=== PATIENT | male | born 1930 | race Caucasian/White ===

== ENCOUNTER 2020-02-12 12:12 | Inpatient (IN) | payer OTHER ==
[~2020-02-12] VITALS: Ht 167.7 cm; Wt 56.6 kg
--- NOTE | 2020-02-12 09:05 | NUR ---
Supervison Christo here to attempt to start IV so pt can receive ordered IVF. Attempts x2 per nursing unsuccessful prior to calling Capacity Planning Manager. Capacity Planning Manager successful on third attempt with #22 in left lower leg. NS at @80cc/hr started. Cont to monitor. Addendum: 02/12/20 at 2142 by DARYL HAYWOOD RN time should have been 2105
[2020-02-12] MEDS ORDERED: FLEET ENEMA ADULT 1 EA BTL PR PRN (12:30)
[2020-02-12] MEDS ORDERED: LOPERAMIDE 2 MG (IMODIUM) TABLET PO PRN (12:30)
[2020-02-12] MEDS ORDERED: CALCIUM CARBONATE 500 MG (TUMS) TAB.CHEW PO PRN (12:30)
[2020-02-12] MEDS ORDERED: ONDANSETRON 4 MG (ZOFRAN) ORAL DISSOLVE TAB PO PRN (12:30)
[2020-02-12] MEDS ORDERED: diphenhydrAMINE 25 MG TAB (BENADRYL) PO PRN (12:30)
[2020-02-12] MEDS ORDERED: BISACODYL 10 MG SUPP (DULCOLAX) PR PRN (12:30)
[2020-02-12] MEDS ORDERED: guaiFENesin/CODEINE (ROBITUSSIN AC) 10ML UDC PO PRN (12:30)
[2020-02-12] MEDS ORDERED: LACTULOSE SYRUP 10GM/15ML (ENULOSE) 30ML UDC PO PRN (12:30)
[2020-02-12] MEDS ORDERED: DOCUSATE SODIUM 100 MG (COLACE) CAP PO PRN (12:30)
[2020-02-12] MEDS ORDERED: CEPH-507 PO (13:01)
[2020-02-12] MEDS ORDERED: ASPI-1238 PO (13:01)
[2020-02-12] MEDS ORDERED: MELO7.5T46 PO (13:01)
[2020-02-12] MEDS ORDERED: ASCO100024 PO (13:01)
[2020-02-12] MEDS ORDERED: PROM25TA14 PO (13:01)
[2020-02-12] MEDS ORDERED: OXYC1TAB87 PO (13:01)
--- NOTE | 2020-02-12 13:03 | NUR ---
MED REC HAS BEEN ENTERED USING THE [facility] DISCHARGE ORDERS- AFTER MEDICATIONS ARE CONTINUED I WILL SPEAK WITH THE PT AND MAKE CHANGED TO THE NOTE/MED REC IF NEEDED Addendum: 02/18/20 at 1130 by SHY FITZGERALD [facility] [place] I SPOKE WITH THE PT ON 02-17-2020 AND AGAIN ON 02-18-2020 WELL CALL THE [facility] PHARM[facility]Y TO COMPLETE THE MED REC PT DENIES TAKING ANY MEDICATION PRESCRIPTION OR OTC- I DID CHECK WITH THE NM IN [place] AND THEY FILLED AMLODIPINE 5MG ON 01-01-2020 #90/90DS. I WENT BACK AND SPOKE WITH THE PT AGAIN TO GET CLARIFICATION AND HE STATES NO HE ISNT TAKING IT ANYMORE. FOR THIS REASON I HAVE SET HIS PROFILE TO NO PRESCRIPTION
--- NOTE | 2020-02-12 15:00 | NUR ---
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 ITALO LIN introduced to surroundings, call light, bed controls, phone, TV, temperature control, lights, meal times, smoking policy, visitor policy, side rail policy, bathrooms and showers. Patient Rights given to patient in the handbook.ITALO LIN verbalizes understanding that [facility] is not responsible for the loss or damage to any personal effects or valuables that are kept in the patients possession during their hospitalization. The following Patient Care Plans were discussed with the patient: Discharge Planning, risk for falls, impaired mobility, parkinsonism. ITALO LIN verbalizes understanding of Interdisciplinary Patient Education. Patient and/or family were informed about the Rapid Response Team and its purpose. Patient received Patient Rights Booklet, which includes Privacy Act Statement and Data Collection Information Summary.
--- NOTE | 2020-02-12 15:27 | Physical Therapy Evaluation ---
PT Evaluation-General Medical Diagnosis Admission Date February 12, 2020 Medical Diagnosis: Parkinson's/right reverse total shoulder Onset Date: Feb 10, 2020 Therapy Diagnosis Therapy Diagnosis: impaired moblity/weakness Precautions Precautions/Isolations: Fall Prevention, Standard Precautions Referral Physician: Marvin Reason for Referral: Evaluation/Treatment Medical History Pertinent Medical History: CABG, CAD, Neuropathy, Parkinson's, Smoking Current History s/p right reverse total shoulder NWB Reviewed History: Yes Social History Home: Single Level Current Living Status: Alone Entry Into Home: Ramp Prior Prior Level of Function SCALE: Activities may be completed with or without assistive devices. 2-Yxdtpwqppf-cbnrhep completes the activity by him/herself with no assistance from a helper. 5-Set-up or Clean-up Assistance-helper sets up or cleans up; patient completes activity. Helm assists only prior to or following the activity. 4-Supervision or Touching Assistance-helper provides verbal cues and/or touching/steadying and/or contact guard assistance as patient completes activity. Assistance may be provided throughout the activity or intermittently. 3-Partial/Moderate Assistance-helper does LESS THAN HALF the effort. Helm lifts, holds or supports trunk or limbs, but provides less than half the effort. 2-Substantial/Maximal Assistance-helper does MORE THAN HALF the effort. Helm lifts or holds trunk or limbs and provides more than half the effort. 0-Utakxkcts-ygyctg does ALL the effort. Patient does none of the effort to complete the activity. Or, the assistance of 2 or more helpers is required for the patient to complete the activity. If activity was not attempted, code reason: 7-Patient Refused. 9-Not Applicable-not attempted and the patient did not perform the activity before the current illness, exacerbation or injury. 10-Not Attempted due to Environmental Limitations-(lack of equipment, weather restraints, etc.). 88-Not Attempted due to Medical Conditions or Safety Concerns. Bed Mobility: 6 Transfers (B,C,W/C): 6 Gait: 6 Stairs: 5 Wheelchair Mobility: 9 Indoor Mobility (Ambulation): Independent Stairs: Independent Prior Devices Use: Walker (4WW) PT Evaluation-Current Subjective Patient reports fatigue. Arrived w/c van. Pain Numeric Pain Scale: 0-No Pain Location: No Pain Reported Objective Patient Orientation: Normal For Age ROM/Strength ROM Lower Extremities bilateral LE WFL/noted Parkinson's tone Strength Lower Extremities 3/5 right knee flexion/extension; 3-/5 hip flexion; 3/5 DF/PF 3/5 left knee flexion/extension; 3-/5 hip flexion; 3/5 DF/PF Integumentary/Posture Integumentary refer to nursing notes Bladder Incontinence: Cuadra Cath Posture slightly kyphotic Neuromuscular (Tone, Coordination, Reflexes) Parkinson's gait and tone Sensory Vision: Functional Hearing: Hearing Aid/Aides Sensation Right Lower Extremit: Impaired Sensation Left Lower Extremity: Impaired Transfers Roll Left to Right (QC): 4 Sit to Lying (QC): 3 Lying to Sitting/Side of Bed(Q: 3 Sit to Stand (QC): 3 Chair/Lji-yq-Xhqdo Xfer(QC): 3 Toilet Transfer (QC): 88 Car Transfer (QC): 88 Gait Does the Patient Walk?: Yes Mode of Locomotion: Walk Anticipated Mode of Locomotion: Walk Walk 10 feet (QC): 3 Walk 50 ft with 2 Turns(QC): 3 Walk 150 ft (QC): 88 Walking 10ft/uneven surface-QC: 3 Distance: 50' x 2 Gait Assistive Device: None Comments/Gait Description BENEFITS ANALYST and use of gait belt with NBOS and Parkinson's gait sequence Wheelchair Training Does the Pt Use a Wheelchair?: No Wheel 50 ft with 2 turns (QC): 9 Wheel 150 ft (QC): 9 Stairs 1 Step (curb) (QC): 88 4 Steps (QC): 88 12 Steps (QC): 9 Balance Sitting Static: Normal Sitting Dynamic: Normal Standing Static: Fair Standing Dynamic: Fair Picking up an Object (QC): 4 Assessment/Needs 89 y.o. male, with noted impaired mobility and strength, will benefit from skilled PT to address functional strength and mobility to improve current LOF. Patient is high fall risk and has diminished safety awareness of functional deficits. Patient declined to use assistive device for gait and utilized BENEFITS ANALYST of therapist. Rehab Potential: Fair PT Barrel Loader And Cleaner Goals Senior Living Goals PT Senior Living Goals Time Frame: Mar 13, 2020 Roll Left & Right (QC): 6 Sit to Lying (QC): 6 Lying-Sitting on Side/Bed(QC): 6 Sit to Stand (QC): 6 Chair/Zfn-gf-Iqzaw Xfer(QC): 6 Toilet Transfer (QC): 6 Car Transfer (QC): 6 Does the Patient Walk: Yes Walk 10 feet (QC): 5 Walk 50ft with 2 Turns (QC): 5 Walk 150 ft (QC): 5 Walking 10ft on Uneven Surface: 5 1 Step (curb) (QC): 5 4 Steps (QC): 5 12 Steps (QC): 9 Picking up an Object (QC): 5 Does the Pt use WC or Scooter?: No Wheel 50 feet with 2 turns (QC: 9 Wheel 150 feet: 9 PT Plan Problem List Problem List: Activity Tolerance, Functional Strength, Safety, Balance, Gait, Transfer, Bed Mobility Treatment/Plan Treatment Plan: Continue Plan of Care Treatment Plan: Bed Mobility, Concurrent Therapy, Education, Functional Activity Brandon, Functional Strength, Group Therapy, Gait, Safety, Therapeutic Exercise, Transfers Treatment Duration: Mar 13, 2020 Frequency: At least 5 of 7 days/Wk (IRF) Estimated Hrs Per Day: 1.5 hours per day Patient and/or Family Agrees t: Yes Time/GCodes Time In: 1500 Time Out: 1520 Total Billed Treatment Time: 20 Total Billed Treatment 1 visit EVModC 20 min MARIA E LILLY PT Feb 12, 2020 15:27
[2020-02-12] MEDS ORDERED: PROMETHAZINE 25 MG (PHENERGAN) TAB PO PRN (17:45)
[2020-02-12 18:00] VITALS: BP 80/50
[2020-02-12 18:27] VITALS: BP 80/50
[2020-02-12] MEDS: CEPHALEXIN 250 MG (KEFLEX) CAP PO SCH ×2 (18:59→23:49)
--- NOTE | 2020-02-12 20:35 | PM&R Post Admission Assessment ---
PM&R HP Date of Visit: Feb 12, 2020 Time of Visit: 18:15 History of Present Illness CC: Debility following right shoulder replacement with Parkinsons HPI: This is an 89yoWM pt of Dr[address] Sharp at [facility] s/p right total reverse shoulder who presents to the inpatient rehab unit with significant de dacosta in status in need of javad-walker management along with helping ADLs and DC plan to go home with friend. I reviewed all [facility] records. Daughter brought him to IRF. Patient usually walks with a walker at home. He served in the [employer] in ?? 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 Patient has subtle delay in mentation and will await ST to perform SLUMS due to suspicion for cognitive deficit. Adkins cath was placed yesterday due to urinary retention. Hypotension with mild tachycardia was noted on admit so I have ordered labs and gentle IVF to fully evaluate the source. Past Alfwfkh-Emzphl-Grzufg Hx Past Med/Social Hx: Reviewed Nursing Past Med/Soc Hx, Reviewed and Corrections made Patient Social History Marrital Status: single Employed/Student: retired Alcohol Use: Rarely Uses Alcohol Beverage of Choice: Beer Recreational Drug Use: No Smoking Status: Current Everyday Smoker Type Used: Cigarettes Physical Abuse Screen: No Sexual Abuse: No Recent Foreign Travel: No Contact w/other who traveled: No Recent Hopitalizations: Yes (recent shoulder surgery) Recent Infectious Disease Expo: No Immunizations Up To Date Pediatric: No Seasonal Allergies Seasonal Allergies: No Past Medical History Surgeries: Orthopedic Currently Using CPAP: No Currently Using BIPAP: No Neurological: Parkinson's Disease Sexually Transmitted Disease: No HIV/AIDS: No Musculoskeletal: Amputee Loss of Vision: Denies Hearing Impairment: Hard of Hearing, Bilateral Hearing Aide Cancer: Skin Did You Recieve Any Treatments: No History of Blood Disorders: No Adverse Reaction to Blood Burroughs: No Prior Level of Function Bed Mobility: 6 Transfers: 6 Gait: 6 Stairs: 5 Wheelchair Mobility: 9 Indoor Mobility (Ambulation): Independent Stairs: Independent Prior Devices Use: Walker (4WW) Current Level of Fuctioning Roll Left to Right: 4 Sit to Lyin Lying to Sitting/Side of Bed: 3 Sit to Stand: 3 Chair/Oft-uq-Clvjw Xfer: 3 Car Transfer: 88 Does the Patient Walk: Yes Mode of Locomotion: Walk Anticipated Mode of Locomotion: Walk Walk 10 feet: 3 Walk 50 ft with 2 Turns: 3 Walk 150 ft: 88 Walking 10ft on uneven surface: 3 Gait Assistive Device: None Does the Pt Use a Wheelchair: No Wheel 50 ft with 2 turns: 9 Wheel 150 ft: 9 1 Step (curb): 88 4 Steps: 88 12 Steps: 9 Picking up an Object: 4 PM&R Allergy/Meds/Data Review Allergies Coded Allergies: No Allergy Information Available (Unverified , 02/12/20) Home Medications Scheduled Ascorbic Acid (Vitamin C), 1,000 MG PO DAILY, (Reported) Aspirin (Aspirin EC), 81 MG PO DAILY, (Reported) Cephalexin (Keflex), 500 MG PO QID, (Reported) Meloxicam (Meloxicam), 7.5 MG PO DAILY, (Reported) Scheduled PRN Oxycodone HCl/Acetaminophen (Percocet 5-325 mg Tablet), 1-2 TAB PO Q6H PRN for PAIN-MODERATE (5-7), (Reported) Promethazine HCl (Promethazine Tablet), 25 MG PO Q6H PRN for NAUSEA/VOMITING-2ND LINE, (Reported) Current Medications Current Medications Reviewed Review of Systems Constitutional: see HPI, dizziness, malaise, weakness EENTM: no symptoms reported Respiratory: no symptoms reported Cardiovascular: no symptoms reported Gastrointestinal: no symptoms reported Genitourinary: other (retention) Musculoskeletal: joint pain (right shoulder) Skin: no symptoms reported Psychiatric/Neurological: No Symptoms Reported All Other Systems Reviewed Negative Unless Noted: Yes Physical Exam Physical Exam Vital Signs Vital Signs - First Documented 02/12/20 18:00 Temp 36.4 Pulse 103 Resp 16 B/P (MAP) 80/50 (60) Pulse Ox 93 O2 Delivery Room Air Capillary Refill : Less Than 3 Seconds Height, Weight, BMI Height: '" Weight: lbs. oz. kg; 21.51 BMI Method: General Appearance: No Apparent Distress, WD/WN, Chronically ill, Thin Eyes: Bilateral Eye Normal Inspection, Bilateral Eye PERRL HEENT: PERRL/EOMI, Normal ENT Inspection, Pharynx Normal Neck: Full Range of Motion, Normal Inspection, Non Tender, Supple, Carotid Bruit Respiratory: Chest Non Tender, Lungs Clear, Normal Breath Sounds, No Accessory Muscle Use, No Respiratory Distress Cardiovascular: Regular Rate, Rhythm, No Edema, No Gallop, No JVD, No Murmur, Normal Peripheral Pulses Gastrointestinal: Normal Bowel Sounds, No Organomegaly, No Pulsatile Mass, Non Tender, Soft Back: Normal Inspection, No CVA Tenderness, No Vertebral Tenderness Extremity: Normal Capillary Refill, Normal Inspection, Normal Range of Motion (except right arm in sling), Non Tender, No Calf Tenderness, No Pedal Edema Neurologic/Psychiatric: Alert, Oriented x3, No Motor/Sensory Deficits, program advocate II- XII Norm as Tested, Abnormal Gait, Depressed Affect, Disoriented, Motor Weakness (all extremities 4/5) Skin: Normal Color, Warm/Dry Lymphatic: No Adenopathy PM&R Medical Assessment & Plan REHAB/MEDICAL ASSESSMENT AND PLAN: REHAB IMPAIRMENT GROUP: Right shoulder replacement with Parkinson's disease ETIOLOGIC DIAGNOSIS: Right shoulder replacement with Parkinson's disease The comorbidities that impact the patients function and/or functional outcome by: cognitive deficit, thin habitus, smoker, urinary retention requiring adkins catheter REHAB PLAN: The patient is being admitted to our comprehensive inpatient rehabilitation facility and can tolerate the intensity of service consisting of at least: 180 minutes of therapy a day, 5 out of 7 days a week Rehab treatment will consist of: PT OT will focus on regaining function and ambulate with javad-walker and monitor BP while participating in therapy and ST will focus on cognition The patient/family has a good understanding of our discharge process and will benefit from an interdisciplinary inpatient rehabilitation program. The patient has potential to make improvement and is in need of at least two of the following multidisciplinary therapies including but not limited to physical, occupational, speech, and prosthetics and orthotics. Additionally the patient will need services from respiratory, nutritional services, wound care, psychology, etc. (Customize this to each patient). Given the patients complex condition and risk of further medical complications, rehabilitation services cannot be safely or effectively provided at a lower level of care such as a penitentiary facility. BARRIERS TO DISCHARGE: Poor reserve ESTIMATED LOS: 10 days DISPOSITION: Home RELEVANT CHANGES SINCE PREADMISSION SCREENING: I have compared the patients medical and functional status at the time of the preadmission screening and there are: no changes PROGNOSIS: Guarded REHABILITATION GOALS: 1. PT OT will focus on regaining function and ambulate with javad-walker and monitor BP while participating in therapy and ST will focus on cognition All the above goals were reviewed with the patient and he/she is in agreement. By signing this document, I acknowledge that I have personally performed a full physical examination on this patient within 24 hours of admission to this inpatient rehabilitation facility and have determined the patient to be able to tolerate the above course of treatment at an intensive level for a reasonable period of time. I will be completing a detailed individualized Plan of Care for this patient by day #4 of the patients stay based upon the Preadmission Screen, the Post-Admission Evaluation, and the therapy evaluations. Admission Dx/Comorbidities: (1) Parkinson disease ICD Codes: G20 - Parkinson's disease (2) Aftercare following right shoulder joint replacement surgery ICD Codes: Z47.1 - Aftercare following joint replacement surgery; Z96.611 - Presence of right artificial shoulder joint (3) Smoker ICD Codes: F17.200 - Nicotine dependence, unspecified, uncomplicated (4) Hypotension ICD Codes: I95.9 - Hypotension, unspecified Assessment/Plan Assessment and Plan Assess & Plan/Chief Complaint Assessment: Parkinson's disease 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 Smoker Hypotension Urinary retention requiring adkins catheter placement Plan: IRF protocol Pain control IVF for hypotension Urology consult for urinary retention ALFREDITO THOMSON DO Feb 12, 2020 20:35
[2020-02-12 20:59] LABS: BASOPHILS % (AUTO) 0 % (0-10); EOSINOPHILS # (AUTO) 0.1 10^3/uL (0.0-0.3); EOSINOPHILS % (AUTO) 2 % (0-10); HEMATOCRIT 33 % (40-54); HEMOGLOBIN 10.7 G/DL (13.3-17.7); LYMPHOCYTES # (AUTO) 0.8 X 10^3 (1.0-4.0); LYMPHOCYTES % (AUTO) 12 % (12-44); MEAN CORPUSCULAR HEMOGLOBIN 25 PG (25-34); MEAN CORPUSCULAR HGB CONC 33 G/DL (32-36); MEAN CORPUSCULAR VOLUME 75 FL (80-99); MEAN PLATELET VOLUME 9.1 FL (7.4-10.4); MONOCYTES # (AUTO) 0.5 X 10^3 (0.0-1.0); MONOCYTES % (AUTO) 7 % (0-12); NEUTROPHILS # (AUTO) 5.1 X 10^3 (1.8-7.8); NEUTROPHILS % (AUTO) 79 % (42-75); PLATELET COUNT 232 10^3/uL (130-400); WHITE BLOOD COUNT 6.5 10^3/uL (4.3-11.0)
[2020-02-12] MEDS ORDERED: NON-FORMULARY MEDICATION 1 EA EA (Cephalexin (Keflex) 500 MG) PO SCH (21:00)
[2020-02-12 21:11] LABS: ALBUMIN 2.8 GM/DL (3.2-4.5); CHLORIDE 104 MMOL/L (98-107); POTASSIUM 4.6 MMOL/L (3.6-5.0); SODIUM 133 MMOL/L (135-145)
[2020-02-12 21:13] LABS: CALCIUM 8.9 MG/DL (8.5-10.1)
[2020-02-12] MEDS: NS IV 1000 ML 1,000 ML IV SCH (21:13)
[2020-02-12 21:14] LABS: GLUCOSE 98 MG/DL (70-105); TOTAL PROTEIN 6.2 GM/DL (6.4-8.2)
[2020-02-12 21:15] LABS: CARBON DIOXIDE 18 MMOL/L (21-32)
[2020-02-12 21:16] LABS: BILIRUBIN,TOTAL 0.2 MG/DL (0.1-1.0)
[2020-02-12 21:17] LABS: ALKALINE PHOSPHATASE 74 U/L (40-136); CREATININE SERUM 1.02 MG/DL (0.60-1.30); GFR ESTIMATED > 60
[2020-02-12] MEDS: oxyCODONE/APAP 5/325MG (PERCOCET 5) TABLET PO PRN (21:17)
[2020-02-12] MEDS: ENOXAPARIN 40 MG/0.4 ML (LOVENOX) SYR SC SCH (21:17)
[2020-02-12 21:19] LABS: BUN/CREATININE RATIO 16
[2020-02-12 21:20] LABS: ALANINE AMINOTRANSFERASE 6 U/L (0-55)
--- NOTE | 2020-02-12 21:26 | NUR ---
Dr. Wong notified of poor venous access and new orders received for Midline in am.
[2020-02-12] MEDS: polyethylene glycoL POWDER 17 GM (MIRALAX) PACK PO SCH (21:28)
[2020-02-12] MEDS: SENNA W/DOCUSATE (SENOKOT S) TABLET PO SCH (21:28)
[2020-02-12] MEDS: DOCUSATE SODIUM 100 MG (COLACE) CAP PO SCH (21:28)
[2020-02-12 22:43] VITALS: BP 80/50
[2020-02-12] MEDS ORDERED: RT-ALBUTEROL SULF 2.5 MG/3 ML PRE-MIX VIAL INH PRN (23:00)
--- NOTE | 2020-02-13 04:00 | NUR ---
O2 SAT 87% on room air. O2 applied per nasal cannula at 2L and sats came up to 91%. RT notified. Cont to monitor.
[2020-02-13 05:25] VITALS: BP 146/67
[2020-02-13 05:31] LABS: BASOPHILS % (AUTO) 0 % (0-10); EOSINOPHILS # (AUTO) 0.1 10^3/uL (0.0-0.3); EOSINOPHILS % (AUTO) 2 % (0-10); HEMATOCRIT 28 % (40-54); HEMOGLOBIN 9.1 G/DL (13.3-17.7); LYMPHOCYTES # (AUTO) 0.9 X 10^3 (1.0-4.0); LYMPHOCYTES % (AUTO) 18 % (12-44); MEAN CORPUSCULAR HEMOGLOBIN 25 PG (25-34); MEAN CORPUSCULAR HGB CONC 32 G/DL (32-36); MEAN CORPUSCULAR VOLUME 76 FL (80-99); MEAN PLATELET VOLUME 8.6 FL (7.4-10.4); MONOCYTES # (AUTO) 0.5 X 10^3 (0.0-1.0); MONOCYTES % (AUTO) 9 % (0-12); NEUTROPHILS # (AUTO) 3.6 X 10^3 (1.8-7.8); NEUTROPHILS % (AUTO) 71 % (42-75); PLATELET COUNT 228 10^3/uL (130-400); WHITE BLOOD COUNT 5.1 10^3/uL (4.3-11.0)
[2020-02-13 05:37] LABS: ALBUMIN 2.6 GM/DL (3.2-4.5); CHLORIDE 105 MMOL/L (98-107); POTASSIUM 4.3 MMOL/L (3.6-5.0)
[2020-02-13 05:38] LABS: SODIUM 135 MMOL/L (135-145)
[2020-02-13 05:39] LABS: CALCIUM 8.3 MG/DL (8.5-10.1)
[2020-02-13 05:40] LABS: GLUCOSE 79 MG/DL (70-105); TOTAL PROTEIN 5.3 GM/DL (6.4-8.2)
[2020-02-13 05:41] LABS: CARBON DIOXIDE 22 MMOL/L (21-32)
[2020-02-13 05:42] LABS: BILIRUBIN,TOTAL 0.2 MG/DL (0.1-1.0)
[2020-02-13 05:43] LABS: ALKALINE PHOSPHATASE 65 U/L (40-136)
[2020-02-13 05:44] LABS: CREATININE SERUM 0.89 MG/DL (0.60-1.30); GFR ESTIMATED > 60
[2020-02-13 05:45] LABS: BUN/CREATININE RATIO 18
[2020-02-13 05:46] LABS: ALANINE AMINOTRANSFERASE < 6 U/L (0-55)
[2020-02-13] MEDS: CEPHALEXIN 250 MG (KEFLEX) CAP PO SCH ×3 (06:16→18:35)
[2020-02-13] MEDS: ASCORBIC ACID (VIT C) 500 MG TABLET PO SCH (06:16)
--- NOTE | 2020-02-13 08:00 | NUR ---
PATIENT VOICES "I REALLY WISH I COULD GET MY TOENAILS CUT." NOTIFIED, ORDERS REC'D FOR DR. JUAREZ CONSULT. MESSAGE SENT TO Addendum: 02/13/20 at 1430 by TEMO JAMES RN DR JUAREZ OFFICE CLOSED ON FRIDAYS, MESSAGE LEFT ON OFFICE PHONE FOR CONSULT SUNDAY.
[2020-02-13] MEDS ORDERED: NON-FORMULARY MEDICATION 1 EA EA (Ascorbic Acid (Vitamin C) 1,000 MG) PO SCH (09:00)
[2020-02-13] MEDS: SENNA W/DOCUSATE (SENOKOT S) TABLET PO SCH ×2 (09:09→20:54)
[2020-02-13] MEDS: ASPIRIN E.C. 81 MG (ECOTRIN) TAB PO SCH (09:10)
[2020-02-13] MEDS: MELOXICAM 7.5 MG (MOBIC) TABLET PO SCH (09:10)
[2020-02-13] MEDS: DOCUSATE SODIUM 100 MG (COLACE) CAP PO SCH ×2 (09:10→20:53)
[2020-02-13] MEDS: polyethylene glycoL POWDER 17 GM (MIRALAX) PACK PO SCH ×2 (09:10→20:54)
[2020-02-13] MEDS: NS IV 1000 ML 1,000 ML IV SCH (09:13)
--- NOTE | 2020-02-13 10:00 | PM&R Progress Note ---
Subjective HPI/CC On Admission Date Seen by Provider: Feb 13, 2020 Time Seen by Provider: 08:00 Subjective/Events-last exam Hgb 9.1 BP is now better after BP was 80/50 yesterday when he was admitted He has been dehydrated before Will switch normal saline to Clinimix Midline was placed Podiatry will be consulted for toenails Will monitor pt closely Checked meds and labs Reviewed therapy notes Conferred with automatic washer mechanic of Systems General: Fatigue, Malaise Neurological: Weakness Focused Exam Lactate Level 02/12/20 20:50: Lactic Acid Level 1.43 Objective Exam Vital Signs Vital Signs Date Time Temp Pulse Resp B/P (MAP) Pulse Ox O2 Delivery O2 Flow Rate FiO2 02/13/20 21:03 94 Room Air 02/13/20 16:30 36.5 76 14 105/74 (84) 02/13/20 05:25 1.00 02/12/20 22:43 21 Capillary Refill : Less Than 3 SecondsLess Than 3 Seconds General Appearance: No Apparent Distress, WD/WN, Chronically ill, Thin HEENT: PERRL/EOMI, Normal ENT Inspection, Pharynx Normal Neck: Full Range of Motion, Normal Inspection, Non Tender, Supple, Carotid Bruit Respiratory: Chest Non Tender, Lungs Clear, Normal Breath Sounds, No Accessory Muscle Use, No Respiratory Distress Cardiovascular: Regular Rate, Rhythm, No Edema, No Gallop, No JVD, No Murmur, Normal Peripheral Pulses Gastrointestinal: Normal Bowel Sounds, No Organomegaly, No Pulsatile Mass, Non Tender, Soft Back: Normal Inspection, No CVA Tenderness, No Vertebral Tenderness Extremity: Normal Capillary Refill, Normal Inspection, Normal Range of Motion (except right arm in sling), Non Tender, No Calf Tenderness, No Pedal Edema Neurologic/Psychiatric: Alert, Oriented x3, No Motor/Sensory Deficits, acute care physician II- XII Norm as Tested, Abnormal Gait, Depressed Affect, Disoriented, Motor Weakness (all extremities 4/5) Skin: Normal Color, Warm/Dry Lymphatic: No Adenopathy Results/Procedures Lab Patient resulted labs reviewed. FIM Transfers Therapy Code Descriptions/Definitions Functional Lamar Measure: 0=Not Assessed/NA 4=Minimal Assistance 1=Total Assistance 5=Supervision or Setup 2=Maximal Assistance 6=Modified Lamar 3=Moderate Assistance 7=Complete IndependenceSCALE: Activities may be completed with or without assistive devices. 2-Pgoybjyhsn-jejinth completes the activity by him/herself with no assistance from a helper. 5-Set-up or Clean-up Assistance-helper sets up or cleans up; patient completes activity. D Hanis assists only prior to or following the activity. 4-Supervision or Touching Assistance-helper provides verbal cues and/or touching/steadying and/or contact guard assistance as patient completes activity. Assistance may be provided throughout the activity or intermittently. 3-Partial/Moderate Assistance-helper does LESS THAN HALF the effort. D Hanis lifts, holds or supports trunk or limbs, but provides less than half the effort. 2-Substantial/Maximal Assistance-helper does MORE THAN HALF the effort. D Hanis lifts or holds trunk or limbs and provides more than half the effort. 0-Lxkiwznui-xjoqep does ALL the effort. Patient does none of the effort to complete the activity. Or, the assistance of 2 or more helpers is required for the patient to complete the activity. If activity was not attempted, code reason: 7-Patient Refused. 9-Not Applicable-not attempted and the patient did not perform the activity before the current illness, exacerbation or injury. 10-Not Attempted due to Environmental Limitations-(lack of equipment, weather restraints, etc.). 88-Not Attempted due to Medical Conditions or Safety Concerns. Roll Left to Right (QC): 4 Sit to Lying (QC): 3 Sit to Stand (QC): 3 Chair/Psy-dr-Alxhp Xfer(QC): 3 Car Transfer (QC): 88 Gait Training Does the Patient Walk?: Yes Walk 10 feet (QC): 3 Walk 50 ft with 2 Turns(QC): 3 Walk 150 ft (QC): 88 Walking 10ft/uneven surface-QC: 3 Gait Assistive Device: None Wheelchair Training Does the Pt Use a Wheelchair?: No Wheel 50 ft with 2 turns (QC): 9 Wheel 150 ft (QC): 9 Stair Training 1 Step (curb) (QC): 88 4 Steps (QC): 88 12 Steps (QC): 9 Balance Picking up an Object (QC): 4 Assessment/Plan Assessment and Plan Assess & Plan/Chief Complaint Assessment: Parkinson's disease 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 Smoker Hypotension Urinary retention requiring adkins catheter placement Plan: IRF protocol Pain control IVF for hypotension Urology consult for urinary retention 02/13/20: Maintain midline IV Consult podiatry for toe nail care Change IV fluid to Clinimix Evaluate memory test IV iron infusion (1) Parkinson disease (2) Aftercare following right shoulder joint replacement surgery (3) Smoker (4) Hypotension ALFREDITO THOMSON DO Feb 13, 2020 10:00
--- NOTE | 2020-02-13 10:30 | Occupational Therapy Eval ---
OT Evaluation-General/PLF Medical Diagnosis Admission Date Feb 12, 2020 at 15:00 Medical Diagnosis: Parkinson's/right reverse total shoulder Onset Date: Feb 10, 2020 Therapy Diagnosis Therapy Diagnosis: Decreased ADL status Precautions Precautions/Isolations: Standard Precautions Weight Bear Status Weight Bearing Restriction: Non Weight Bearing Location Restriction: R UE Referral Physician: Marvin Benitez Reason: Activity Tolerance, Self Care, Evaluation/Treatment, Strengthening/ROM Medical History Pertinent Medical History: CABG, CAD, Neuropathy, Parkinson's, Smoking Additional Medical History see nursing Parkinson's Disease Current History S/p shoulder reverse arthroplasty RUE; sling on when up; NWB RUE. Pt expressed he haad ~1 year of pain with h/o arthro RTC repair ~6 mo ago with increased pain post-surgery. Reviewed History: Yes Social History Home: Single Level Current Living Status: Alone Entry Into Home: Ramp ADL-Prior Level of Function SCALE: Activities may be completed with or without assistive devices. 3-Tchgkhrwpw-hpuyrnb completes the activity by him/herself with no assistance from a helper. 5-Set-up or Clean-up Assistance-helper sets up or cleans up; patient completes activity. [place] assists only prior to or following the activity. 4-Supervision or Touching Assistance-helper provides verbal cues and/or touching/steadying and/or contact guard assistance as patient completes activity. Assistance may be provided throughout the activity or intermittently. 3-Partial/Moderate Assistance-helper does LESS THAN HALF the effort. [place] lifts, holds or supports trunk or limbs, but provides less than half the effort. 2-Substantial/Maximal Assistance-helper does MORE THAN HALF the effort. [place] lifts or holds trunk or limbs and provides more than half the effort. 7-Zuvwvnrcv-xdblyw does ALL the effort. Patient does none of the effort to complete the activity. Or, the assistance of 2 or more helpers is required for the patient to complete the activity. If activity was not attempted, code reason: 7-Patient Refused. 9-Not Applicable-not attempted and the patient did not perform the activity before the current illness, exacerbation or injury. 10-Not Attempted due to Environmental Limitations-(lack of equipment, weather restraints, etc.). 88-Not Attempted due to Medical Conditions or Safety Concerns. ADL PLOF Comments Pt states was IND at home with use of 4WW. Pt continued to drive, though was limited, as he states, he had pain in R shoulder/ decreased ROM and decreased proprioception in RLE (states inability to gauge how much pressure applied without speedometer for reference). Self Care: Independent Functional Cognition: Independent DME/Equipment: Bath Chair, Grab Bars, Shower, Tall Toilet DME/Equipment Comments 4WW, sc, walk in shower and tub/ shower (use of walk in shower with sc and gbs), tall toilet without grab bars (states needs assist at times to rise from toilet). 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 Pt asleep. Pt easily rises, states "100/100 pain." Nursing notified. Pt alert/ oriented to person/ place/ situation, though forgetful as far as precautions and minimal tasks through tx session. Pt agrees to OT eval/ treat. Mental Status/Objective Patient Orientation: Person, Place, Situation Attachments: Cuadra Catheter, IV Current Hearing Aids: Yes Dentures/Partials: Yes Hand Dominance: Right Upper Extremity ROM R shoulder: declines PROM to R shoulder due to increased pain at start of session, pt educated on importance of movement but given a break due to pain. End of session attempt for PROM, pt winces and states no PROM at this time. R elbow/ wrist/ hand/ fingers: WFL L: WFL Upper Extremity Coordination WFL BUE: opposition completed. No DIP of pt's 4th finger of R hand. Upper Extremity Sensation WFL BUE, pt denies sensory difficulties post surgery. Upper Extremity Strength WFL LUE (4/5) R elbow/ wrist not tested due to increased shoulder pain and guarding of R arm- pt encouraged to complete AROM of R elbow/ distal joints and completes WFL. Edema: none noted ADL-Treatment Eating (QC): 5 (per clinical judgment, pt will requires s/u at times for feeding managment.) Oral Hygiene (QC): 7 (denies, though states completed soaking last night) Shower/Bathe Self (QC): 3 (Mod A. Pt guards RUE throughout sponge bath, completes EOB. Pt able to complete chest/ face/ storm area/ bottom hygiene and RLE with SBA-CGA. Pt requires assist with bottom of LLE/ back/ underarms/ LUE.) Upper Body Dressing (QC): 2 (Max A: pt guards RUE during dressing. Pt requires max A for doffing/ donning sling with cues for completion. Pt able to don LUE gown, requires max A for RUE threading to gown.) Lower Body Dressing (QC): 3 (Min A- able to thread BLE, CGA in stance with min A to pull up on R side) On/Off Footwear (QC): 2 (Pt doffs with IND/ SBA, pt requires max A for donning BLE socks) Toileting Hygiene (QC): 4 (CGA in stance. ) Other Treatments Pt educated on OT role and purpose of therapy. Pt unable to state precautions, pt educated on NWB RUE and examples, educated on no AROM and completion of PROM by therapist to RUE, education on importance of distal joint movement for mobility/ strength/ edema management, and use of sling when not positioned to deter movement in wrong plane. Pt nods, stating he does not think he will be able to remember, pt educated on purpose of therapy and preparing for d/c. Pt states desire to return home at Mod I level and receive assist from family friend for driving/ IADL tasks. Pt completes bed mob with SBA and cues for NWB, due to guarding of RUE pt maintains NWB throughout session. Pt completes sponge bath and dressing as above. 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 Pt completes ambulation to BS, cues for L hand position, sits and stands with CGA and no LOB. No tremors noted through UE/ LE activity this am. Pt states tremors occur "at times," was taking medication and believed it was not helping. Pt sits in recliner, sling doffed and PROM attempted to RUE; pt denies PROM stating "too much pain." Pt's RUE propped in neutral plane. Pt given hand sponge and completes gripping ex with AROM of supination/ pronation and elbow flexion/ extension. Pt denies needs, call light in reach/ all needs met. Education OT Patient Education: Correct positioning, Exercise program, Home exercise program, Instructions don/doff splint/brace, Modified ADL techniques, Progress toward Goal/Update tx plan, Purpose of tx/functional activities, Reviewed precautions, Rehab process, Safety issues, Transfer techniques Teaching Recipient: Patient Teaching Methods: Demonstration, Discussion Response to Teaching: Verbalize Understanding, Return Demonstration, Reinforcement Needed OT Short Term Goals Short Term Goals Time Frame: Feb 20, 2020 Oral hygiene: 6 Toileting hygiene: 5 Shower/bathe self: 3 Upper body dressin Lower body dressin Putting on/taking off footwear: 3 OT Legal Consultant Goals [facility] Goals Time Frame: Feb 27, 2020 Eating (QC): 6 Oral Hygiene (QC): 6 Toileting Hygiene (QC): 6 Shower/Bathe Self (QC): 6 Upper Body Dressing (QC): 6 Lower Body Dressing (QC): 6 On/Off Footwear (QC): 6 Additional Goals: 1-Demonstrate ADL Tasks, 2-Verbalize Understanding, 3-Impr oveStrength/Brandon 1=Demonstrate adherence to instructed precautions during ADL tasks. 2=Patient will verbalize/demonstrate understanding of assistive devices/modifications for ADL. 3=Patient will improve strength/tolerance for activity to enable patient to perform ADL's. OT Education/Plan Problem List/Assessment Assessment: Decreased Activ Tolerance, Decreased UE Strength, Dependent Transfers, Impaired Cognition, Impaired Funct Balance, Impaired I ADL's, Impaire d Self-Care Skills, Restricted Funct UE ROM Discharge Recommendations Plan/Recommendations: Continue POC Therapy Discharge Recommendati: Scheduled Assistance, Post Acute OT Equpiment Recommendations-D/C: Rails on Tub/Shower, Piece Presser, Sock Aide Treatment Plan/Plan of Care Treatment,Training & Education: Yes Patient would benefit from OT for education, treatment and training to promote independence in ADL's, mobility, safety and/or upper extremity function for ADL's. Plan of Care: ADL Retraining, Caregiver Training, Cognitive Retraining, Functional Mobility, Group Exercise/Act as Ind, UE Funct Exercise/Act Treatment Duration: Feb 27, 2020 Frequency: At least 5 of 7 days/Wk (IRF) Estimated Hrs Per Day: 1.5 hours per day Agreement: Yes Rehab Potential: Fair Time/GCodes Start Time: 09:15 Stop Time: 10:25 Total Time Billed (hr/min): 70 Billed Treatment Time 1, EVM (15), ADL 4 (55)= 70 MYAH SALINAS OTR Feb 13, 2020 10:30
[2020-02-13] MEDS: RT-ALBUTEROL SULF 2.5 MG/3 ML PRE-MIX VIAL INH SCH ×2 (10:47→18:39)
--- NOTE | 2020-02-13 11:15 | NUR ---
therapy reports adkins is leaking at insertion tip, patient felt as though he needed to go. orders rec'd for urology consult. notified, orders rec'd to d/c adkins. adkins catheter removed, intact, with 10cc clear fluid removed from bulb; 200cc dark,charisma colored urine left in bag/catheter at removal. patient tolerates procedure well.
--- NOTE | 2020-02-13 12:04 | Physical Therapy Daily Note ---
PT Daily Note-Current Subjective Patient is very agreeable to participate with therapy. No c/o. Pain Numeric Pain Scale: 5-Moderate Pain Location: Right Location Body Site: Shoulder Pain Description: Acute Mental Status Patient Orientation: Normal For Age Attachments: Central Line, Cuadra Catheter Transfers SCALE: Activities may be completed with or without assistive devices. 3-Uokdzujkos-yemcjvo completes the activity by him/herself with no assistance from a helper. 5-Set-up or Clean-up Assistance-helper sets up or cleans up; patient completes activity. [place] assists only prior to or following the activity. 4-Supervision or Touching Assistance-helper provides verbal cues and/or touching/steadying and/or contact guard assistance as patient completes activity. Assistance may be provided throughout the activity or intermittently. 3-Partial/Moderate Assistance-helper does LESS THAN HALF the effort. [place] lifts, holds or supports trunk or limbs, but provides less than half the effort. 2-Substantial/Maximal Assistance-helper does MORE THAN HALF the effort. [place] lifts or holds trunk or limbs and provides more than half the effort. 2-Vvhcnnsmn-qasdvm does ALL the effort. Patient does none of the effort to complete the activity. Or, the assistance of 2 or more helpers is required for the patient to complete the activity. If activity was not attempted, code reason: 7-Patient Refused. 9-Not Applicable-not attempted and the patient did not perform the activity before the current illness, exacerbation or injury. 10-Not Attempted due to Environmental Limitations-(lack of equipment, weather restraints, etc.). 88-Not Attempted due to Medical Conditions or Safety Concerns. 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 PT to increase activity as tolerated by patient. PT Jail Goals Jail Goals PT Jail Goals Time Frame: Mar 13, 2020 Roll Left & Right (QC): 6 Sit to Lying (QC): 6 Lying-Sitting on Side/Bed(QC): 6 Sit to Stand (QC): 6 Chair/Yvc-cl-Mdanz Xfer(QC): 6 Toilet Transfer (QC): 6 Car Transfer (QC): 6 Does the Patient Walk: Yes Walk 10 feet (QC): 5 Walk 50ft with 2 Turns (QC): 5 Walk 150 ft (QC): 5 Walking 10ft on Uneven Surface: 5 1 Step (curb) (QC): 5 4 Steps (QC): 5 12 Steps (QC): 9 Picking up an Object (QC): 5 Does the Pt use WC or Scooter?: No Wheel 50 feet with 2 turns (QC: 9 Wheel 150 feet: 9 PT Plan Treatment/Plan Treatment Plan: Continue Plan of Care Treatment Plan: Bed Mobility, Concurrent Therapy, Education, Functional Activity Brandon, Functional Strength, Group Therapy, Gait, Safety, Therapeutic Exercise, Transfers Treatment Duration: Mar 13, 2020 Frequency: At least 5 of 7 days/Wk (IRF) Estimated Hrs Per Day: 1.5 hours per day Patient and/or Family Agrees t: Yes Time/GCodes Time In: 1100 Time Out: 1200 Total Billed Treatment Time: 60 Total Billed Treatment 1 visit GT x 2 32 min EX x 2 28 min MARIA E LILLY PT Feb 13, 2020 12:04
[2020-02-13] MEDS: IRON SUCROSE 200 MG/10 ML (VENOFER) VIAL IV SCH (12:11)
[2020-02-13] MEDS: AA 4.25% W/LYTES IN D5W IV SOL 1,000 ML IV SCH (12:11)
[2020-02-13] MEDS: oxyCODONE/APAP 5/325MG (PERCOCET 5) TABLET PO PRN ×2 (12:15→18:48)
--- NOTE | 2020-02-13 12:52 | ST Cognitive Linguistic Eval ---
Speech Evaluation-General Medical Diagnosis Parkinson's/right reverse total shoulder Onset Date: Feb 10, 2020 Therapy Diagnosis Therapy Diagnosis: Cognitive-communication Referral Referring Physician: Dr. Wong Medical History Pertinent Medical History: CABG, CAD, Neuropathy, Parkinson's, Smoking Reviewed History: Yes Social History Current Living Status: Alone Speech PLF-Current Status Prior Level of Function Patient lived home alone where he was independent for much of his daily needs. He does receive support from his daughter as needed. Subjective Patient was pleasant and cooperative with the cognitive assessment. Language Eval: Auditory Comprehends Simple Yes/No Ques: Functional Indent/Objects Multiple Sams: Functional Ident/Pics in Multiple Sams: Functional Follows 1-Step Commands: Functional Follows Complex Directions: Moderate Follows General Conversations: Mild Language Eval: Verbal Language Completes Spontaneous Greeting: Functional Produces Auto, Serial Info: Functional Imitates Simple Words/Phrases: Functional Word Finding: Moderate Requests Basic Needs: Mild States Basic Personal Info: Mild Expresses Complex Ideas: Moderate Objective Cognitive Domain Attention: WNL Memory: Moderate Problem Solving: Mild Executive Functions: Moderate Visuospatial Skills: Mild Composite Severity Rating: Moderate Clock Drawing Severity Rating: Moderate Objective Formal/Standardized Tests [facility] Mental Status (UMS) Results 16/30, Moderate dementia range of function Oral Motor/Speech Production Within Normal Limits Impression Patient is a pleasant 89 y/o male who lives home alone in [place], [place]. Patient does have a daughter who assists with his daily needs. Patient was given the S LUMS with a score of 16/30 obtained. Patient's score is within the moderate dementia level of function. Patient will receive skilled ST with focus on improving cognitive abilities and safety awareness. Speech Patient Assess Expression of Ideas/Wants: Frequently (2) Understanding Verbal Content: Usually Understands (3) Brief Interview-Mental Status: Yes Repetition of Three Words: Three (3) Temporal Orientation: Year: Correct (3) Temporal Orientation: Month: Accurate within 5 days(2) Temporal Orientation: Day: Incorrect or No Answer(0) Recall : Wear to say "Sock": No, could not recall (0) Recall : Color: No, could not recall (0) Recall : Bed: No, could not recall (0) Memory/Recall Ability: That he or she is in a hsp/hsp unit Speech Short Term Goals Short Term Goals Short Term Goals 1) Patient will complete memory tasks related to his daily needs at 80% or greater given minimal cues. 2) Patient will complete problem solving tasks related to his daily needs at 80% or greater given minimal cues. 3) Patient will complete safety awareness tasks related to his daily needs at 80% or greater given minimal cues. Speech Image Archivist Goals Snf Goals Patient will improve cognitive-communication abilities so that he may complete daily tasks with minimal assist. Speech-Plan Patient/Family Goals Patient/Family Goals: Patient plans on returning home with his daughter upon rehab discharge. Treatment Plan Speech Therapy Treatment Plan: Continue Plan of Care Treatment Duration: Feb 27, 2020 Frequency: 4 times per week (Pateint will receive skilled ST 4-5x per week) Estimated Hrs Per Day: .5 hour per day Rehab Potential: Fair Barriers to Learning: Patient's medical status, age, cognitive deficits Pt/Family Agrees to Plan: Yes Safety Risks/Education Teaching Recipient: Patient Teaching Methods: Discussion Response to Teaching: Verbalize Understanding Education Topics Provided: Safety within his room, utilization of his call light as needed, communication of wants/needs Time Speech Therapy Time In: 10:30 Speech Therapy Time Out: 11:00 Total Billed Time: 30 Billed Treatment Time 1, ANNE-MARIE SCHAFER [address] ST Feb 13, 2020 12:52
--- NOTE | 2020-02-13 14:18 | Therapy Group Daily Note ---
Therapy Daily Group Note Patient Education Topic Home Safety, Exercises Exercises LE Seated Exercise, UE Exercise Session Ratio (pt:therapist): 4:1 Goal of Session: Home Safety Strategies, UE/LE Strengthing Goal Met for this Session: Yes Pt Benefit of Group: Contributions to Others, F/U Use of Strategies @Home, Increased Functional Safety, Increased Functional Strength, Improved Cognition, Recognition of Peers, Socialization Other/Notes Pt ambulated to OT/PT group in [facility]. Group consisted of introductions (name, place living, what activity on Sunday), socialization, UE/LE seated exercises (peer led), education on home safety and Home Safety Bingo. Pt able to introduce self appropriately then actively listen to peers' introductions. Pt able to complete UE/LE seated exercises appropriately with all extremities other than R UE due to medical issues. Pt was able to complete fine/gross motor UE movements without difficulty and visually scan to find matching pictures. Pt demonstrated understanding of educational topic by giving personal experiences and strategies. Pt was able to communicate with peers. After session, pt lying in bed with call light/phone in reach. All needs met in room. Start Time: 12:50 Stop Time: 13:50 Total Billed Treatment Time: 60 Total Billed Treatment 1,GRP SAMMIE DUDLEY Feb 13, 2020 14:18
--- NOTE | 2020-02-13 15:37 | NUR ---
RD ASSESSMENT PMHx: PD; amputation; CA(skin); s/p R shoulder replacement PT INTERACTION: Pt was awake and pleasant during consult for MST score. Pt states current appetite is not good, and has been this way for "years." Note avg PO intake 50-75% x1d, per chart review. Pt states following a regular diet at home, and has some issues with swallowing food. Pt states no recent issues with nausea, vomiting, constipation, or diarrhea, and that his last BM was 02/11. Note pt currently on bowel regimen of colace BID; miralax BID; and senna BID, per chart review. Pt states recent 20# wt loss, but unsure of timeframe. Note unable to determine recent wt hx, per chart review. Upon visual assessment, pt appears to be undernourished with visible signs of muscle wasting that could be attributed to advanced age or undernutrition, with a BMI of 21.9 (Underweight for age). Given PO intake, wt hx, and visual assessment, pt does not meet criteria for malnutrition per ASPEN guidelines. ABNORMAL NUTRITION-RELATED LAB VALUES LOW: Ca 8.3; Pro 5.3; alb 2.6 HIGH: Est. kcal needs: 1850 kcal | 30 kcal/kg Est. Pro needs: 73 g Pro | 1.2 g Pro/kg PES STATEMENT: Inadequate oral intake (NI-2.1) related to loss of appetite as evidenced by pt interview | avg PO intake 50-75% x1d INTERVENTION: Continue with current diet order of Regular diet. Continue with current supplementation order of Ensure Enlive with meals TID, for increased kcal intake. Provdies 350 kcal and 13 g Pro per serving. Will continue to follow and reassess as pt needs, intake, and status change. MONITOR/EVALUATE: PO Intake; Plan of Care; Hydration Status; Weight Status; Lab Values Oscar Verma, MS, RD, LD
[2020-02-13 16:30] VITALS: BP 105/74
[2020-02-13] MEDS: TAMSULOSIN 0.4 MG (FLOMAX) CAP PO SCH (18:35)
--- NOTE | 2020-02-13 19:35 | CONSULTATION REPORT ---
DATE OF SERVICE: 02/13/2020 ATTENDING PHYSICIAN: Dr. Wong. SUMMARY: An 89-year-old white man transferred from [place] after undergoing shoulder surgery. He apparently had some problem urinating and a catheter was reinserted after it failed trial of voiding. The patient admits to voiding symptoms at home, but he is not on any medications for it or had any surgery for it, according to him. I reviewed his admission history and physical by Dr. Wong. The catheter was leaking and the patient was uncomfortable with it and he was voiding around it, so we elected to remove the catheter and observe voiding. IMPRESSION: Benign prostatic hyperplasia with possible retention. PLAN: Observe trial of voiding and start him on Flomax 0.4 mg daily and manage accordingly. Job ID: [id number] DocumentID: [id number] Dictated Date: 02/13/2020 14:55:39 Geothermal Production Manager Date: 02/13/2020 19:34:52 Dictated By: BAM YOUNGER MD
[2020-02-13] MEDS: ENOXAPARIN 40 MG/0.4 ML (LOVENOX) SYR SC SCH (20:53)
[2020-02-14] MEDS: CEPHALEXIN 250 MG (KEFLEX) CAP PO SCH ×5 (00:09→23:07)
[2020-02-14] MEDS: AA 4.25% W/LYTES IN D5W IV SOL 1,000 ML IV SCH ×3 (00:09→15:55)
[2020-02-14 06:00] VITALS: BP 102/59
[2020-02-14] MEDS: ASCORBIC ACID (VIT C) 500 MG TABLET PO SCH (06:13)
[2020-02-14] MEDS: oxyCODONE/APAP 5/325MG (PERCOCET 5) TABLET PO PRN ×2 (06:18→22:22)
--- NOTE | 2020-02-14 07:36 | Individualized Plan of Care ---
Individualized Plan of Care Rehab Nursing IPOC Order Admission Date Feb 12, 2020 at 15:00 Current Orders Orders Admission Order(Inpt,Obs,Sdc) (02/12/20 12:22) Vital Signs: Per Unit Policy ( 08,16,00 (02/12/20 12:22) Noman Shipman 09,21 (02/12/20 12:22) Sequential Compression Device Q4H (02/12/20 12:22) Grid Inspector-Inpt Rehab Con (02/12/20 12:22) Rehab Nursing Orders-Ipoc (02/12/20 12:22) Physical Therapy Rehab Orders (02/12/20 12:22) Occupational Therapy Rehab Ord (02/12/20 12:22) Speech Therapy Rehab Orders (02/12/20 12:22) Cbc With Automated Diff (02/13/20 06:00) Comprehensive Metabolic Panel (02/13/20 06:00) General/Regular (02/12/20 Lunch) Intake & Output 06,, (02/12/20 12:22) Precautions (Aru) (02/12/20 12:22) Weekly Weight WEEK (02/12/20 12:22) Rehab-Intensity Of Therapy (02/12/20 12:22) Initiate Admission Nursing Pro .admission (02/12/20 12:22) Acetaminophen Tablet (Tylenol Tablet) (02/12/20 12:30) Alprazolam Tablet (Xanax Tablet) (02/12/20 12:30) Calcium Carbonate Chew Tablet (Antacid C (02/12/20 12:30) Diphenhydramine Tablet (Benadryl Tablet) (02/12/20 12:30) Docusate Sodium Capsule (Colace Capsule) (02/12/20 21:00) Docusate Sodium Capsule (Colace Capsule) (02/12/20 12:30) Bisacodyl Suppository (Dulcolax Supposit (02/12/20 12:30) Lactulose Oral Solution (Enulose Oral So (02/12/20 12:30) Na Phos/Na Biphos Enema (Fleet Enema Piyush (02/12/20 12:30) Guaifenesin/Codeine Syrup (Robitussin Ac (02/12/20 12:30) Loperamide Tablet (Imodium Tablet) (02/12/20 12:30) Enoxaparin Injection (Lovenox Injection) (02/12/20 20:00) Melatonin Tablet (Melatonin Tablet) (02/12/20 12:30) Polyethylene Glycol Powder Pkt (Miralax (02/12/20 21:00) Ondansetron Oral Dissolve Tab (Zofran (02/12/20 12:30) Senna S Tablet (Senokot S Tablet) (02/12/20 21:00) Initiate Admission Nursing Pro .admission (02/12/20 12:22) Patient Visit (02/12/20 ) Pt Eval Moderate Complexity (02/12/20 ) Aspirin Enteric Coated Tablet (Ecotrin T (02/13/20 09:00) Meloxicam Tablet (Mobic Tablet) (02/13/20 09:00) Oxycodone/Apap 5/325mg Tablet (Percocet (02/12/20 17:45) Promethazine Tablet (Phenergan Tablet) (02/12/20 17:45) (Nf) Ascorbic Acid (Vitamin C) (02/13/20 09:00) (Nf) Cephalexin (Keflex) (02/12/20 21:00) Ascorbic Acid Tablet (Vitamin C Tablet) (02/13/20 07:00) Cephalexin Capsule (Keflex Capsule) (02/12/20 18:00) Edu Tobacco/Smoking Cessation .prn (02/12/20 18:54) Ensure Enlive (02/12/20 Dinner) Ambulate 08,12,20 (02/12/20 19:43) Sequential Compression Device Q4H (02/12/20 19:43) Dvt/Vte Risk - Notifiy Physici Q4H (02/12/20 19:43) Ns Iv 1000 Ml (Sodium Chloride 0.9%) (02/12/20 20:30) Cbc With Automated Diff (02/12/20 20:22) Comprehensive Metabolic Panel (02/12/20 20:22) Lactic Acid Analyzer (02/12/20 20:22) Procalcitonin (Pct) (02/12/20 20:22) Incentive Spirometry (Nursing) Q2H (02/12/20 20:23) Oxygen Delivery Set Up (02/12/20 20:23) Venous Access Request Order (02/13/20 09:00) Mat Initiate Protocol (02/12/20 22:47) Albuterol Pre-Mix Nebs (Rt) (Proventil (02/13/20 08:00) Albuterol Pre-Mix Nebs (Rt) (Proventil (02/12/20 23:00) Svn Small Volume Nebulizer (02/12/20 22:47) Svn Small Volume Nebulizer (02/12/20 22:47) Oxygen-Administer 07,19 (02/13/20 04:05) Oxygen Delivery Set Up (02/13/20 04:05) General/Regular (02/13/20 Breakfast) Amb Us Guide Vascular Access (02/13/20 ) Iron Test (Fe) (02/13/20 09:58) Iron Sucrose Injection (Venofer Injectio (02/13/20 10:00) Aa 4.25% W/Lytes In D5w Iv Dahlia (Clinimix (02/13/20 10:00) Consult Urology (02/13/20 10:22) Catheter(Urinary) Discontinue (02/13/20 11:58) Patient Visit (02/13/20 ) Speech Sound Lang Comp (02/13/20 ) Treat. Speech/Lang/Voice (02/13/20 ) Consult Physician (02/13/20 14:23) Patient Visit (02/13/20 ) Gait Training, Ea 15 Min (02/13/20 ) Exercise Therap, Ea 15 Min (02/13/20 ) Patient Visit (02/13/20 ) Tamsulosin Capsule (Flomax Capsule) (02/13/20 18:00) Monitor For Bladder Distention TID PRN (02/13/20 14:43) Patient Visit (02/14/20 ) Gait Training, Ea 15 Min (02/14/20 ) Functional Activities, Ea 15 (02/14/20 ) Exercise Therap, Ea 15 Min (02/14/20 ) Loratadine Tablet (Claritin Tablet) (02/14/20 11:15) Follow-Up Appointment (02/14/20 12:07) Rehab Nursing Orders: Ongoing Assess. of Cognitive Status, Ongoing Assess. of Function Status, Bladder Management, Bladder Scan, Bladder Training, Bowel Management, Bowel Training, Disease Management & Educaiton, DVT Prophylaxis, Fall Prevention, Fluid/Electrolyte/Nutrition Mgmt, Infection Prevention, Medication Management & Education, Management of Risks & Complications, Management of Skin Intergrity, Nutrition Management, Pain Management, Patient/Family Support, Safety Management, Swallow Precautions Intensity of Therapy to be met Patient to be seen: Min.3h per day/5 of 7d PT IPOC Problem List: Activity Tolerance, Functional Strength, Safety, Balance, Gait, Transfer, Bed Mobility Treatment Plan: Continue Plan of Care Bed Mobility, Concurrent Therapy, Education, Functional Activity Brandon, Functional Strength, Group Therapy, Gait, Safety, Therapeutic Exercise, Transfers Treatment Duration: Mar 13, 2020 Frequency: At least 5 of 7 days/Wk (IRF) Estimated Hrs Per Day: 1.5 hours per day OT IPOC Problems: Decreased Activ Tolerance, Decreased UE Strength, Dependent Transfers, Impaired Cognition, Impaired Funct Balance, Impaired I ADL's, Impaired Self-Care Skills, Restricted Funct UE ROM OT Treatment, Training and Edu: Yes Plan of Care: ADL Retraining, Caregiver Training, Cognitive Retraining, Functional Mobility, Group Exercise/Act as Ind, UE Funct Exercise/Act Treatment Duration: Feb 27, 2020 Frequency: At least 5 of 7 days/Wk (IRF) Estimated Hrs Per Day: 1.[address] IPOC Speech Therapy Treatment Plan: Continue Plan of Care Treatment Duration: Feb 27, 2020 Frequency: 4 times per week (Pateint will receive skilled ST 4-5x per week) Estimated Hrs Per Day: .5 hour per day Grid Inspector/Case Mgmt Grid Inspector/Case Managemen: Discharge Planning Dietitian/Paid Search Analyst Dietitian/Paid Search Analyst to monitor nutritional status and make changes and/or recommendations as needed and work with speech pathology on dietary upgrades as the occur. Physician IPOC Medical Issues being managed closely and that require the 24 hour availability of a physician: Recent shoulder replacement and severe PD with dysphagia with hypotension on admit requiring IVF and septic w/u will be at high risk for decompensation Medical Issues: Bowel/Bladder Function, DVT Prophylaxis, Falls Precautions, Fluid/Electrolyte/Nutrition Balance, Infection Protection, Pain Management, Swallowing Precautions Brief Synthesis of Preadmission Screen, Post-Admission Evaluation, and Therapy Evaluations: PT OT will help increase independence and help regain strength with javad-walker and ST will work on swallowing Medical Prognosis: Good Anticipated Length of Stay: 10 days ALFREDITO THOMSON DO Feb 14, 2020 07:36
--- NOTE | 2020-02-14 07:36 | PM&R Progress Note ---
Subjective HPI/CC On Admission Date Seen by Provider: Feb 14, 2020 Time Seen by Provider: 11:00 Subjective/Events-last exam 02/14/20: Doing better Keeping Clinimix at gentle rate for now IV iron tolerated Hgb 9.1 BP is now better after BP was 80/50 yesterday when he was admitted He has been dehydrated before Will switch normal saline to Clinimix Midline was placed Podiatry will be consulted for toenails Will monitor pt closely Checked meds and labs Reviewed therapy notes Conferred with lisw of Systems General: Fatigue, Malaise Neurological: Weakness Focused Exam Lactate Level 02/12/20 20:50: Lactic Acid Level 1.43 Objective Exam Vital Signs Vital Signs Date Time Temp Pulse Resp B/P (MAP) Pulse Ox O2 Delivery O2 Flow Rate FiO2 02/14/20 13:52 95 Room Air 02/14/20 06:00 36.4 70 16 102/59 (73) 02/13/20 05:25 1.00 02/12/20 22:43 21 Capillary Refill : Less Than 3 SecondsLess Than 3 Seconds General Appearance: No Apparent Distress, WD/WN, Chronically ill, Thin HEENT: PERRL/EOMI, Normal ENT Inspection, Pharynx Normal Neck: Full Range of Motion, Normal Inspection, Non Tender, Supple, Carotid Bruit Respiratory: Chest Non Tender, Lungs Clear, Normal Breath Sounds, No Accessory Muscle Use, No Respiratory Distress Cardiovascular: Regular Rate, Rhythm, No Edema, No Gallop, No JVD, No Murmur, Normal Peripheral Pulses Gastrointestinal: Normal Bowel Sounds, No Organomegaly, No Pulsatile Mass, Non Tender, Soft Back: Normal Inspection, No CVA Tenderness, No Vertebral Tenderness Extremity: Normal Capillary Refill, Normal Inspection, Normal Range of Motion (except right arm in sling), Non Tender, No Calf Tenderness, No Pedal Edema Neurologic/Psychiatric: Alert, Oriented x3, No Motor/Sensory Deficits, transport company manager II- XII Norm as Tested, Abnormal Gait, Depressed Affect, Disoriented, Motor Weakness (all extremities 4/5) Skin: Normal Color, Warm/Dry Lymphatic: No Adenopathy Results/Procedures Lab Patient resulted labs reviewed. FIM Transfers Therapy Code Descriptions/Definitions Functional [place] Measure: 0=Not Assessed/NA 4=Minimal Assistance 1=Total Assistance 5=Supervision or Setup 2=Maximal Assistance 6=Modified [place] 3=Moderate Assistance 7=Complete IndependenceSCALE: Activities may be completed with or without assistive devices. 2-Jpmhfzhhut-gvhnjeh completes the activity by him/herself with no assistance from a helper. 5-Set-up or Clean-up Assistance-helper sets up or cleans up; patient completes activity. [employer] assists only prior to or following the activity. 4-Supervision or Touching Assistance-helper provides verbal cues and/or touching/steadying and/or contact guard assistance as patient completes activity. Assistance may be provided throughout the activity or intermittently. 3-Partial/Moderate Assistance-helper does LESS THAN HALF the effort. [employer] lifts, holds or supports trunk or limbs, but provides less than half the effort. 2-Substantial/Maximal Assistance-helper does MORE THAN HALF the effort. [employer] lifts or holds trunk or limbs and provides more than half the effort. 4-Uahhebyug-wfsrhl does ALL the effort. Patient does none of the effort to complete the activity. Or, the assistance of 2 or more helpers is required for the patient to complete the activity. If activity was not attempted, code reason: 7-Patient Refused. 9-Not Applicable-not attempted and the patient did not perform the activity before the current illness, exacerbation or injury. 10-Not Attempted due to Environmental Limitations-(lack of equipment, weather restraints, etc.). 88-Not Attempted due to Medical Conditions or Safety Concerns. Roll Left to Right (QC): 4 Sit to Lying (QC): 3 Sit to Stand (QC): 3 Chair/Pab-nc-Ehsyd Xfer(QC): 3 Car Transfer (QC): 88 Gait Training Does the Patient Walk?: Yes Distance: 150' x 6 Walk 10 feet (QC): 4 Walk 50 ft with 2 Turns(QC): 4 Walk 150 ft (QC): 4 Walking 10ft/uneven surface-QC: 3 Gait Assistive Device: None Wheelchair Training Does the Pt Use a Wheelchair?: No Wheel 50 ft with 2 turns (QC): 9 Wheel 150 ft (QC): 9 Stair Training #of Steps: 1 1 Step (curb) (QC): 3 4 Steps (QC): 88 12 Steps (QC): 9 Stairs: Pattern: Step to Balance Picking up an Object (QC): 4 ADL-Treatment Eating (QC): 5 (per clinical judgment, pt will requires s/u at times for feeding managment.) Oral Hygiene (QC): 7 (denies, though states completed soaking last night) Shower/Bathe Self (QC): 3 (Mod A. Pt guards RUE throughout sponge bath, completes EOB. Pt able to complete chest/ face/ storm area/ bottom hygiene and RLE with SBA-CGA. Pt requires assist with bottom of LLE/ back/ underarms/ LUE.) Upper Body Dressing (QC): 2 (Max A: pt guards RUE during dressing. Pt requires max A for doffing/ donning sling with cues for completion. Pt able to don LUE gown, requires max A for RUE threading to gown.) Lower Body Dressing (QC): 3 (Min A- able to thread BLE, CGA in stance with min A to pull up on R side) On/Off Footwear (QC): 2 (Pt doffs with IND/ SBA, pt requires max A for donning BLE socks) Toileting Hygiene (QC): 4 (CGA in stance. 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
--- NOTE | 2020-02-14 08:32 | Physical Therapy Daily Note ---
PT Daily Note-Current Subjective Patient agrees to PT. No c/o. Assisted patient with sling application. Mental Status Patient Orientation: Normal For Age Attachments: IV Transfers SCALE: Activities may be completed with or without assistive devices. 3-Gpopsgxetr-atibbcb completes the activity by him/herself with no assistance from a helper. 5-Set-up or Clean-up Assistance-helper sets up or cleans up; patient completes activity. [place] assists only prior to or following the activity. 4-Supervision or Touching Assistance-helper provides verbal cues and/or touching/steadying and/or contact guard assistance as patient completes activ ity. Assistance may be provided throughout the activity or intermittently. 3-Partial/Moderate Assistance-helper does LESS THAN HALF the effort. [place] lifts, holds or supports trunk or limbs, but provides less than half the effort. 2-Substantial/Maximal Assistance-helper does MORE THAN HALF the effort. [place] lifts or holds trunk or limbs and provides more than half the effort. 9-Chskdlcni-zgdfac does ALL the effort. Patient does none of the effort to complete the activity. Or, the assistance of 2 or more helpers is required for the patient to complete the activity. If activity was not attempted, code reason: 7-Patient Refused. 9-Not Applicable-not attempted and the patient did not perform the activity before the current illness, exacerbation or injury. 10-Not Attempted due to Environmental Limitations-(lack of equipment, weather restraints, etc.). 88-Not Attempted due to Medical Conditions or Safety Concerns. Lying to Sitting/Side of Bed(Q: 2 Sit to Stand (QC): 2 Chair/Ajh-kf-Cenam Xfer(QC): 2 Toilet Transfer (QC): 2 Patient slightly retropulsive during toilet transfer and standing at sink during ADL's with OT. PT address balance, gait and transfers during ADL training Gait Training Does the Patient Walk?: Yes Distance: 150' x 2 Walk 10 feet (QC): 3 Walk 50 ft with 2 Turns(QC): 3 Walk 150 ft (QC): 3 Gait Assistive Device: None patient utilized IV pole for AD/shuffle gait sequence with FWW Exercises Seated Therapy Exercises: Ankle pumps, Long arc quads Seated Reps: 15 NuStep Minutes: 12 NuStep Workload: 4 (to improve mobility and strength) Treatments OT/PT cotreat due to increased medical complexity, decreased functional mobility, and to decrease fall risk. OT focused on ADLs, cues for sequencing and safety, and UE placement, while PT focused on functional transfers, LE placem ent, and overall gross movements. Assessment Patient tolerated treatment well and returned to room with OT assist. Patient improving with plan. PT Materials Recycler Goals Fpc Goals PT Fpc Goals Time Frame: Mar 13, 2020 Roll Left & Right (QC): 6 Sit to Lying (QC): 6 Lying-Sitting on Side/Bed(QC): 6 Sit to Stand (QC): 6 Chair/Mxj-qs-Axemm Xfer(QC): 6 Toilet Transfer (QC): 6 Car Transfer (QC): 6 Does the Patient Walk: Yes Walk 10 feet (QC): 5 Walk 50ft with 2 Turns (QC): 5 Walk 150 ft (QC): 5 Walking 10ft on Uneven Surface: 5 1 Step (curb) (QC): 5 4 Steps (QC): 5 12 Steps (QC): 9 Picking up an Object (QC): 5 Does the Pt use WC or Scooter?: No Wheel 50 feet with 2 turns (QC: 9 Wheel 150 feet: 9 PT Plan Treatment/Plan Treatment Plan: Continue Plan of Care Treatment Plan: Bed Mobility, Concurrent Therapy, Education, Functional Activity Brandon, Functional Strength, Group Therapy, Gait, Safety, Therapeutic Exercise, Transfers Treatment Duration: Mar 13, 2020 Frequency: At least 5 of 7 days/Wk (IRF) Estimated Hrs Per Day: 1.5 hours per day Patient and/or Family Agrees t: Yes Time/GCodes Time In: 655 Time Out: 825 Total Billed Treatment Time: 90 Total Billed Treatment 1 visit GT 8 min FA x 4 (70 min cotreat with OT) EX 12 min MARIA E LILLY PT Feb 14, 2020 08:31
[2020-02-14] MEDS: RT-ALBUTEROL SULF 2.5 MG/3 ML PRE-MIX VIAL INH SCH ×2 (08:35→21:11)
[2020-02-14] MEDS: MELOXICAM 7.5 MG (MOBIC) TABLET PO SCH (08:46)
[2020-02-14] MEDS: ASPIRIN E.C. 81 MG (ECOTRIN) TAB PO SCH (08:46)
[2020-02-14] MEDS: polyethylene glycoL POWDER 17 GM (MIRALAX) PACK PO SCH ×2 (08:47→20:21)
[2020-02-14] MEDS: SENNA W/DOCUSATE (SENOKOT S) TABLET PO SCH ×2 (08:47→20:21)
[2020-02-14] MEDS: DOCUSATE SODIUM 100 MG (COLACE) CAP PO SCH ×2 (08:47→20:21)
--- NOTE | 2020-02-14 09:00 | Occupational Ther Daily Note ---
OT Current Status-Daily Note Subjective No pain reported. Appearance Pt. alert and oriented and agrees to work with therapy. Mental Status/Objective Patient Orientation: Person, Place Attachments: IV ADL-Treatment Therapy Code Descriptions/Definitions Functional [place] Measure: 0=Not Assessed/NA 4=Minimal Assistance 1=Total Assistance 5=Supervision or Setup 2=Maximal Assistance 6=Modified [place] 3=Moderate Assistance 7=Complete IndependenceSCALE: Activities may be completed with or without assistive devices. 0-Xzptgeskdg-orrjovl completes the activity by him/herself with no assistance from a helper. 5-Set-up or Clean-up Assistance-helper sets up or cleans up; patient completes activity. [place] assists only prior to or following the activity. 4-Supervision or Touching Assistance-helper provides verbal cues and/or touching/steadying and/or contact guard assistance as patient completes activity. Assistance may be provided throughout the activity or intermittently. 3-Partial/Moderate Assistance-helper does LESS THAN HALF the effort. [place] lifts, holds or supports trunk or limbs, but provides less than half the effort. 2-Substantial/Maximal Assistance-helper does MORE THAN HALF the effort. [place] lifts or holds trunk or limbs and provides more than half the effort. 3-Tuteniqzf-pnsega does ALL the effort. Patient does none of the effort to complete the activity. Or, the assistance of 2 or more helpers is required for the patient to complete the activity. If activity was not attempted, code reason: 7-Patient Refused. 9-Not Applicable-not attempted and the patient did not perform the activity before the current illness, exacerbation or injury. 10-Not Attempted due to Environmental Limitations-(lack of equipment, weather restraints, etc.). 88-Not Attempted due to Medical Conditions or Safety Concerns. Oral Hygiene (QC): 2 Shower/Bathe Self (QC): 2 Lower Body Dressing (QC): 2 On/Off Footwear: 1 Toileting Hygiene (QC): 3 (Mod assist) Toilet Transfer (QC): 3 (Mod assist) Other Treatment Partial OT/PT co-treatment performed due to need of skilled level of two therapists. PT focused on ambulation and mobility while OT assisted and facilitated ADL skills and discharge plans. Pt. requires mod assistance for sit-stand and increased time needed to initiate taking steps due to Parkinson's disease. Pt. ambulated to toilet but require assistance to doff brief. Increased time needed to motor plan the aspect of sitting down. After toileting, pt. agreed to sponge bathe. OT gently removed right UE sling and e ncouraged pt. to use left UE as much as possible to wash all areas. Overall, pt. requires max assist. PT facilitated pt.'s ability to stand and balance self during certain ADLs. No street clothing available and so pt. donned fresh brief, gown, and socks. OT re-applied sling. Pt. ambulated to sink to brush hair and teeth. Attempted at first in stance, but unable to balance self. Sat down and OT attempted to educate pt in one handed method to brush dentures. Pt. did not understand how to initiate this and so OT did this for him. After ADLs, pt. worked on balance activities with ambulation to therapy gym. Brief rest break needed and pt. pushed IV pole with assist. Min assist needed for balance in ambulation. While performing LE exercise, OT talked with pt. about home needs. He verbalizes that he would like a power wheelchair. He currently has a power scooter, but it is too big for the inside of his home. He will likely need a tub transfer bench as well. Pt. ambulated back to room and all needs m et. Pt. encouraged to use pink therapy sponge in right hand to increase motion. Pt. verbalizes understanding. Education OT Patient Education: Correct positioning, Modified ADL techniques, Progress toward Goal/Update tx plan, Purpose of tx/functional activities, Reviewed precautions, Rehab process, Transfer techniques Teaching Recipient: Patient Teaching Methods: Demonstration, Discussion Response to Teaching: Verbalize Understanding, Return Demonstration OT Short Term Goals Short Term Goals Time Frame: Feb 20, 2020 Oral hygiene: 6 Toileting hygiene: 5 Shower/bathe self: 3 Upper body dressin Lower body dressin Putting on/taking off footwear: 3 OT Topper Press Operator Automatic Goals Topper Press Operator Automatic Goals Time Frame: Feb 27, 2020 Eating (QC): 6 Oral Hygiene (QC): 6 Toileting Hygiene (QC): 6 Shower/Bathe Self (QC): 6 Upper Body Dressing (QC): 6 Lower Body Dressing (QC): 6 On/Off Footwear (QC): 6 Additional Goals: 1-Demonstrate ADL Tasks, 2-Verbalize Understanding, 3- ImproveStrength/Brandon 1=Demonstrate adherence to instructed precautions during ADL tasks. 2=Patient will verbalize/demonstrate understanding of assistive devices/modifications for ADL. 3=Patient will improve strength/tolerance for activity to enable patient to perform ADL's. OT Education/Plan Problem List/Assessment Assessment: Decreased Activ Tolerance, Decreased UE Strength, Dependent Transfers, Impaired Funct Balance, Impaired I ADL's, Impaired Self-Care Skills, Restricted Funct UE ROM Discharge Recommendations Plan/Recommendations: Continue POC Therapy Discharge Recommendati: Post Acute OT Equpiment Recommendations-D/C: Extended Bath Bench, Hip Kit Treatment Plan/Plan of Care Treatment,Training & Education: Yes Patient would benefit from OT for education, treatment and training to promote independence in ADL's, mobility, safety and/or upper extremity function for ADL's. Plan of Care: ADL Retraining, Caregiver Training, Cognitive Retraining, Functional Mobility, Group Exercise/Act as Ind, UE Funct Exercise/Act Treatment Duration: Feb 27, 2020 Frequency: At least 5 of 7 days/Wk (IRF) Estimated Hrs Per Day: 1.5 hours per day Agreement: Yes Rehab Potential: Fair Time/GCodes Start Time: 07:15 Stop Time: 08:45 Total Time Billed (hr/min): 90 Billed Treatment Time 8860-4665 1, ADL x 45minutes, FA x 25minutes Co-treatment with PT. Please see above note for designated roles. [id number] FA x 20minutes- OT only PEPE MARAVILLA OT Feb 14, 2020 09:00
[2020-02-14] MEDS: LORATADINE (CLARITIN) 10 MG TAB PO SCH (11:22)
[2020-02-14 16:30] VITALS: BP 115/60
[2020-02-14] MEDS: TAMSULOSIN 0.4 MG (FLOMAX) CAP PO SCH (17:10)
[2020-02-14] MEDS: ENOXAPARIN 40 MG/0.4 ML (LOVENOX) SYR SC SCH (20:20)
[2020-02-14] MEDS: MELATONIN 3 MG TABLET PO PRN (22:22)
[2020-02-15] MEDS: AA 4.25% W/LYTES IN D5W IV SOL 1,000 ML IV SCH ×2 (05:21→19:12)
[2020-02-15 05:39] VITALS: BP 111/63
[2020-02-15] MEDS: oxyCODONE/APAP 5/325MG (PERCOCET 5) TABLET PO PRN ×2 (06:08→17:17)
[2020-02-15] MEDS: CEPHALEXIN 250 MG (KEFLEX) CAP PO SCH ×4 (06:08→23:11)
[2020-02-15] MEDS: ASCORBIC ACID (VIT C) 500 MG TABLET PO SCH (06:09)
[2020-02-15] MEDS: RT-ALBUTEROL SULF 2.5 MG/3 ML PRE-MIX VIAL INH SCH ×2 (07:50→21:37)
[2020-02-15] MEDS: SENNA W/DOCUSATE (SENOKOT S) TABLET PO SCH ×2 (08:35→20:17)
[2020-02-15] MEDS: LORATADINE (CLARITIN) 10 MG TAB PO SCH (08:35)
[2020-02-15] MEDS: DOCUSATE SODIUM 100 MG (COLACE) CAP PO SCH ×2 (08:35→20:17)
[2020-02-15] MEDS: MELOXICAM 7.5 MG (MOBIC) TABLET PO SCH (08:35)
[2020-02-15] MEDS: ASPIRIN E.C. 81 MG (ECOTRIN) TAB PO SCH (08:35)
[2020-02-15] MEDS: IRON SUCROSE 200 MG/10 ML (VENOFER) VIAL IV SCH (08:36)
[2020-02-15] MEDS: polyethylene glycoL POWDER 17 GM (MIRALAX) PACK PO SCH ×2 (08:38→20:17)
--- NOTE | 2020-02-15 09:58 | PM&R Progress Note ---
Subjective HPI/CC On Admission Date Seen by Provider: Feb 15, 2020 Time Seen by Provider: 11:00 Subjective/Events-last exam 02/15/20: Will stop IVF tomorrow Dysphagia is chronic Checking labs in am Daughter at bedside 02/14/20: Doing better Keeping Clinimix at gentle rate for now IV iron tolerated Hgb 9.1 BP is now better after BP was 80/50 yesterday when he was admitted He has been dehydrated before Will switch normal saline to Clinimix Midline was placed Podiatry will be consulted for toenails Will monitor pt closely Checked meds and labs Reviewed therapy notes Conferred with RN Focused Exam Lactate Level 02/12/20 20:50: Lactic Acid Level 1.43 Objective Exam Vital Signs Vital Signs Date Time Temp Pulse Resp B/P (MAP) Pulse Ox O2 Delivery O2 Flow Rate FiO2 02/15/20 17:11 36.6 80 16 144/70 (94) 95 Room Air 02/13/20 05:25 1.00 02/12/20 22:43 21 Capillary Refill : Less Than 3 SecondsLess Than 3 Seconds General Appearance: No Apparent Distress, WD/WN, Chronically ill, Thin HEENT: PERRL/EOMI, Normal ENT Inspection, Pharynx Normal Neck: Full Range of Motion, Normal Inspection, Non Tender, Supple, Carotid Bruit Respiratory: Chest Non Tender, Lungs Clear, Normal Breath Sounds, No Accessory Muscle Use, No Respiratory Distress Cardiovascular: Regular Rate, Rhythm, No Edema, No Gallop, No JVD, No Murmur, Normal Peripheral Pulses Gastrointestinal: Normal Bowel Sounds, No Organomegaly, No Pulsatile Mass, Non Tender, Soft Back: Normal Inspection, No CVA Tenderness, No Vertebral Tenderness Extremity: Normal Capillary Refill, Normal Inspection, Normal Range of Motion (except right arm in sling), Non Tender, No Calf Tenderness, No Pedal Edema Neurologic/Psychiatric: Alert, Oriented x3, No Motor/Sensory Deficits, endocrinology physician II- XII Norm as Tested, Abnormal Gait, Depressed Affect, Disoriented, Motor Weakness (all extremities 4/5) Skin: Normal Color, Warm/Dry Lymphatic: No Adenopathy Results/Procedures Lab Patient resulted labs reviewed. FIM Transfers Therapy Code Descriptions/Definitions Functional [place] Measure: 0=Not Assessed/NA 4=Minimal Assistance 1=Total Assistance 5=Supervision or Setup 2=Maximal Assistance 6=Modified [place] 3=Moderate Assistance 7=Complete IndependenceSCALE: Activities may be completed with or without assistive devices. 5-Wczhbwhcqz-skhfbks completes the activity by him/herself with no assistance from a helper. 5-Set-up or Clean-up Assistance-helper sets up or cleans up; patient completes activity. [place] assists only prior to or following the activity. 4-Supervision or Touching Assistance-helper provides verbal cues and/or touching/steadying and/or contact guard assistance as patient completes activity. Assistance may be provided throughout the activity or intermittently. 3-Partial/Moderate Assistance-helper does LESS THAN HALF the effort. [place] lifts, holds or supports trunk or limbs, but provides less than half the effort. 2-Substantial/Maximal Assistance-helper does MORE THAN HALF the effort. [place] lifts or holds trunk or limbs and provides more than half the effort. 9-Jbsikmise-vaofxa does ALL the effort. Patient does none of the effort to complete the activity. Or, the assistance of 2 or more helpers is required for the patient to complete the activity. If activity was not attempted, code reason: 7-Patient Refused. 9-Not Applicable-not attempted and the patient did not perform the activity before the current illness, exacerbation or injury. 10-Not Attempted due to Environmental Limitations-(lack of equipment, weather restraints, etc.). 88-Not Attempted due to Medical Conditions or Safety Concerns. Roll Left to Right (QC): 4 Sit to Lying (QC): 3 Sit to Stand (QC): 2 Chair/Kkx-ds-Frmeq Xfer(QC): 2 Car Transfer (QC): 88 Gait Training Does the Patient Walk?: Yes Distance: 150' x 2 Walk 10 feet (QC): 3 Walk 50 ft with 2 Turns(QC): 3 Walk 150 ft (QC): 3 Walking 10ft/uneven surface-QC: 3 Gait Assistive Device: None Wheelchair Training Does the Pt Use a Wheelchair?: No Wheel 50 ft with 2 turns (QC): 9 Wheel 150 ft (QC): 9 Stair Training #of Steps: 1 1 Step (curb) (QC): 3 4 Steps (QC): 88 12 Steps (QC): 9 Stairs: Pattern: Step to Balance Picking up an Object (QC): 4 ADL-Treatment Eating (QC): 5 (per clinical judgment, pt will requires s/u at times for feeding managment.) Oral Hygiene (QC): 2 Shower/Bathe Self (QC): 2 Upper Body Dressing (QC): 2 (Max A: pt guards RUE during dressing. Pt requires max A for doffing/ donning sling with cues for completion. 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
--- NOTE | 2020-02-15 10:18 | Progress Note - Urology ---
Progress Note-Urology Progress Notes/Assess & Plan Progress/Assessment & Plan VOIDING WELL. EMPTYING WELL. TOLERATES FLOMAX WELL Final Diagnosis URINE RETENTION (RESOLVING) BAM YOUNGER MD Feb 15, 2020 10:18
[2020-02-15] MEDS: TAMSULOSIN 0.4 MG (FLOMAX) CAP PO SCH (17:04)
[2020-02-15 17:11] VITALS: BP 144/70
[2020-02-15] MEDS: MELATONIN 3 MG TABLET PO PRN (20:17)
[2020-02-15] MEDS: ENOXAPARIN 40 MG/0.4 ML (LOVENOX) SYR SC SCH (20:17)
[2020-02-16] MEDS: ALPRAZolam 0.25 MG (XANAX) TAB PO PRN (01:23)
[2020-02-16] MEDS: oxyCODONE/APAP 5/325MG (PERCOCET 5) TABLET PO PRN ×3 (01:41→20:19)
[2020-02-16 05:04] VITALS: BP 120/64
--- NOTE | 2020-02-16 05:48 | PM&R Progress Note ---
Subjective HPI/CC On Admission Date Seen by Provider: Feb 16, 2020 Time Seen by Provider: 09:00 Subjective/Events-last exam 02/16/20: Sodium level 132, I did stop the Clinamix today WBC 3.1 Hgb 8.7 requiring iron infusions Bowels moved three days ago, will monitor that closely 02/15/20: Will stop IVF tomorrow Dysphagia is chronic Checking labs in am Daughter at bedside 02/14/20: Doing better Keeping Clinimix at gentle rate for now IV iron tolerated Hgb 9.1 BP is now better after BP was 80/50 yesterday when he was admitted He has been dehydrated before Will switch normal saline to Clinimix Midline was placed Podiatry will be consulted for toenails Will monitor pt closely Checked meds and labs Reviewed therapy notes Conferred with email marketing intern of Systems General: Fatigue, Malaise Neurological: Weakness Objective Exam Vital Signs Vital Signs Date Time Temp Pulse Resp B/P (MAP) Pulse Ox O2 Delivery O2 Flow Rate FiO2 02/16/20 16:03 36.4 73 14 124/66 (85) 96 Room Air 02/16/20 15:49 21 02/13/20 05:25 1.00 Capillary Refill : Less Than 3 SecondsLess Than 3 Seconds General Appearance: No Apparent Distress, WD/WN, Chronically ill, Thin HEENT: PERRL/EOMI, Normal ENT Inspection, Pharynx Normal Neck: Full Range of Motion, Normal Inspection, Non Tender, Supple, Carotid Bruit Respiratory: Chest Non Tender, Lungs Clear, Normal Breath Sounds, No Accessory Muscle Use, No Respiratory Distress Cardiovascular: Regular Rate, Rhythm, No Edema, No Gallop, No JVD, No Murmur, Normal Peripheral Pulses Gastrointestinal: Normal Bowel Sounds, No Organomegaly, No Pulsatile Mass, Non Tender, Soft Back: Normal Inspection, No CVA Tenderness, No Vertebral Tenderness Extremity: Normal Capillary Refill, Normal Inspection, Normal Range of Motion (except right arm in sling), Non Tender, No Calf Tenderness, No Pedal Edema Neurologic/Psychiatric: Alert, Oriented x3, No Motor/Sensory Deficits, engineering vice president II- XII Norm as Tested, Abnormal Gait, Depressed Affect, Disoriented, Motor Weakness (all extremities 4/5) Skin: Normal Color, Warm/Dry Lymphatic: No Adenopathy Results/Procedures Lab Laboratory Tests 02/16/20 05:41 Patient resulted labs reviewed. FIM Transfers Therapy Code Descriptions/Definitions Functional [place] Measure: 0=Not Assessed/NA 4=Minimal Assistance 1=Total Assistance 5=Supervision or Setup 2=Maximal Assistance 6=Modified [place] 3=Moderate Assistance 7=Complete IndependenceSCALE: Activities may be completed with or without assistive devices. 9-Vhxybxubex-eoeowcd completes the activity by him/herself with no assistance from a helper. 5-Set-up or Clean-up Assistance-helper sets up or cleans up; patient completes activity. [place] assists only prior to or following the activity. 4-Supervision or Touching Assistance-helper provides verbal cues and/or touching/steadying and/or contact guard assistance as patient completes activity. Assistance may be provided throughout the activity or intermittently. 3-Partial/Moderate Assistance-helper does LESS THAN HALF the effort. [place] lifts, holds or supports trunk or limbs, but provides less than half the effort. 2-Substantial/Maximal Assistance-helper does MORE THAN HALF the effort. [place] lifts or holds trunk or limbs and provides more than half the effort. 0-Rzpifezcw-pnyxfk does ALL the effort. Patient does none of the effort to complete the activity. Or, the assistance of 2 or more helpers is required for the patient to complete the activity. If activity was not attempted, code reason: 7-Patient Refused. 9-Not Applicable-not attempted and the patient did not perform the activity before the current illness, exacerbation or injury. 10-Not Attempted due to Environmental Limitations-(lack of equipment, weather restraints, etc.). 88-Not Attempted due to Medical Conditions or Safety Concerns. Roll Left to Right (QC): 4 Sit to Lying (QC): 3 Sit to Stand (QC): 2 Chair/Heg-ep-Vbfrn Xfer(QC): 2 Car Transfer (QC): 88 Gait Training Does the Patient Walk?: Yes Distance: 150' x 2 Walk 10 feet (QC): 3 Walk 50 ft with 2 Turns(QC): 3 Walk 150 ft (QC): 3 Walking 10ft/uneven surface-QC: 3 Gait Assistive Device: None Wheelchair Training Does the Pt Use a Wheelchair?: No Wheel 50 ft with 2 turns (QC): 9 Wheel 150 ft (QC): 9 Stair Training #of Steps: 1 1 Step (curb) (QC): 3 4 Steps (QC): 88 12 Steps (QC): 9 Stairs: Pattern: Step to Balance Picking up an Object (QC): 4 ADL-Treatment Eating (QC): 5 (per clinical judgment, pt will requires s/u at times for feeding managment.) Oral Hygiene (QC): 2 Shower/Bathe Self (QC): 2 Upper Body Dressing (QC): 2 (Max A: pt guards RUE during dressing. Pt requires max A for doffing/ donning sling with cues for completion. 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 Smoker Hypotension Urinary retention requiring adkins catheter placement Plan: IRF protocol Pain control IVF for hypotension Urology consult for urinary retention 02/13/20: Maintain midline IV Consult podiatry for toe nail care Change IV fluid to Clinimix Evaluate memory test IV iron infusion 02/14/20: IV iron Clinimix Pain control 02/15/20: Check labs in am SW to help at DC with daughter conversation 02/16/20: Continue pain control Sodium level noted at 132 Aggressive bowel regimen due to Parkinson's and constipation (1) Parkinson disease (2) Aftercare following right shoulder joint replacement surgery (3) Smoker (4) Hypotension ALFREDITO THOMSON DO Feb 16, 2020 05:48
[2020-02-16 05:49] LABS: BASOPHILS % (AUTO) 0 % (0-10); EOSINOPHILS # (AUTO) 0.2 10^3/uL (0.0-0.3); EOSINOPHILS % (AUTO) 7 % (0-10); HEMATOCRIT 26 % (40-54); HEMOGLOBIN 8.7 G/DL (13.3-17.7); LYMPHOCYTES # (AUTO) 0.8 X 10^3 (1.0-4.0); LYMPHOCYTES % (AUTO) 27 % (12-44); MEAN CORPUSCULAR HEMOGLOBIN 25 PG (25-34); MEAN CORPUSCULAR HGB CONC 33 G/DL (32-36); MEAN CORPUSCULAR VOLUME 75 FL (80-99); MEAN PLATELET VOLUME 8.6 FL (7.4-10.4); MONOCYTES # (AUTO) 0.3 X 10^3 (0.0-1.0); MONOCYTES % (AUTO) 9 % (0-12); NEUTROPHILS # (AUTO) 1.8 X 10^3 (1.8-7.8); NEUTROPHILS % (AUTO) 57 % (42-75); PLATELET COUNT 228 10^3/uL (130-400); WHITE BLOOD COUNT 3.1 10^3/uL (4.3-11.0)
[2020-02-16 06:01] LABS: ALBUMIN 2.4 GM/DL (3.2-4.5); CHLORIDE 101 MMOL/L (98-107); POTASSIUM 4.7 MMOL/L (3.6-5.0); SODIUM 132 MMOL/L (135-145)
[2020-02-16 06:03] LABS: CALCIUM 8.3 MG/DL (8.5-10.1)
[2020-02-16 06:04] LABS: GLUCOSE 91 MG/DL (70-105)
[2020-02-16 06:05] LABS: CARBON DIOXIDE 23 MMOL/L (21-32)
[2020-02-16 06:06] LABS: BILIRUBIN,TOTAL 0.2 MG/DL (0.1-1.0)
[2020-02-16] MEDS: CEPHALEXIN 250 MG (KEFLEX) CAP PO SCH ×4 (06:06→23:52)
[2020-02-16] MEDS: ASCORBIC ACID (VIT C) 500 MG TABLET PO SCH (06:06)
[2020-02-16 06:07] LABS: ALKALINE PHOSPHATASE 53 U/L (40-136); CREATININE SERUM 0.69 MG/DL (0.60-1.30); GFR ESTIMATED > 60
[2020-02-16 06:08] LABS: BUN/CREATININE RATIO 36
[2020-02-16 06:10] LABS: ALANINE AMINOTRANSFERASE 6 U/L (0-55)
[2020-02-16] MEDS: DOCUSATE SODIUM 100 MG (COLACE) CAP PO SCH ×2 (08:11→20:18)
[2020-02-16] MEDS: SENNA W/DOCUSATE (SENOKOT S) TABLET PO SCH ×2 (08:11→20:18)
[2020-02-16] MEDS: LORATADINE (CLARITIN) 10 MG TAB PO SCH (08:11)
[2020-02-16] MEDS: MELOXICAM 7.5 MG (MOBIC) TABLET PO SCH (08:11)
[2020-02-16] MEDS: ASPIRIN E.C. 81 MG (ECOTRIN) TAB PO SCH (08:11)
[2020-02-16] MEDS: polyethylene glycoL POWDER 17 GM (MIRALAX) PACK PO SCH ×2 (09:00→20:20)
--- NOTE | 2020-02-16 09:06 | Speech Therapy Daily Note ---
Speech Daily Progress Note Subjective Date Seen by Provider: Feb 16, 2020 Time Seen by Provider: 00:30 Patient was resting in his recliner when I entered his room. He stated he was having a lot of pain. Patient had received his pain meds but was noted to groan frequently throughout the session due to pain. Objective Patient completed a series of q/a related to self, recent events and daily needs with 75% with mod to max cues and/or repetitions. Patient took several small sips without s/s of aspiration as directed at 90%. Assessment Assessment Current Status: Fair Progress Treatment Plan Continue Plan of Care Speech Short Term Goals Short Term Goals Short Term Goals 1) Patient will complete memory tasks related to his daily needs at 80% or greater given minimal cues. 2) Patient will complete problem solving tasks related to his daily needs at 80% or greater given minimal cues. 3) Patient will complete safety awareness tasks related to his daily needs at 80% or greater given minimal cues. Speech Fdc Goals Fuel Cell Technician Goals Patient will improve cognitive-communication abilities so that he may complete daily tasks with minimal assist. Speech-Plan Patient/Family Goals Patient/Family Goals: Patient's plan to return home, however due to his medical and cognitive status this may not be a safe situation. Treatment Plan Speech Therapy Treatment Plan: Continue Plan of Care Treatment Duration: Feb 27, 2020 Frequency: 4 times per week (Pateint will receive skilled ST 4-5x per week) Estimated Hrs Per Day: .5 hour per day Rehab Potential: Fair Barriers to Learning: Patient has dementia, cognitive deficits Pt/Family Agrees to Plan: Yes Safety Risks/Education Teaching Recipient: Patient Teaching Methods: Demonstration, Discussion Response to Teaching: Return Demonstration, Reinforcement Needed Education Topics Provided: Continued safety within his room and communication of wants/needs Time Speech Therapy Time In: 08:30 Speech Therapy Time Out: 09:00 Total Billed Time: 30 Billed Treatment Time 1, ANNE-MARIE, PHILIP Mason Feb 16, 2020 09:06
[2020-02-16] MEDS ORDERED: DICLOFENAC 1% GEL 100 GM (VOLTAREN) TUBE TOP PRN (09:45)
--- NOTE | 2020-02-16 09:54 | Occupational Ther Daily Note ---
OT Current Status-Daily Note Subjective Pt in reclining chair finishing up with speech when OT entered room. He reported that he was in pain in shoulder, but did not rate. Pt stated that he recently had pain medication. Pt seemed to have times that he was highly confused and required VC to keep eyes open, but stated that there was nothing wrong other than pain. Mental Status/Objective Patient Orientation: Confused Attachments: Central Line ADL-Treatment Therapy Code Descriptions/Definitions Functional [place] Measure: 0=Not Assessed/NA 4=Minimal Assistance 1=Total Assistance 5=Supervision or Setup 2=Maximal Assistance 6=Modified [place] 3=Moderate Assistance 7=Complete IndependenceSCALE: Activities may be completed with or without assistive devices. 2-Ujrhjtwehd-nsxkgps completes the activity by him/herself with no assistance from a helper. 5-Set-up or Clean-up Assistance-helper sets up or cleans up; patient completes activity. [place] assists only prior to or following the activity. 4-Supervision or Touching Assistance-helper provides verbal cues and/or touching/steadying and/or contact guard assistance as patient completes activity. Assistance may be provided throughout the activity or intermittently. 3-Partial/Moderate Assistance-helper does LESS THAN HALF the effort. [place] lifts, holds or supports trunk or limbs, but provides less than half the effort. 2-Substantial/Maximal Assistance-helper does MORE THAN HALF the effort. [place] lifts or holds trunk or limbs and provides more than half the effort. 2-Zirqljyzm-xgorxi does ALL the effort. Patient does none of the effort to complete the activity. Or, the assistance of 2 or more helpers is required for the patient to complete the activity. If activity was not attempted, code reason: 7-Patient Refused. 9-Not Applicable-not attempted and the patient did not perform the activity before the current illness, exacerbation or injury. 10-Not Attempted due to Environmental Limitations-(lack of equipment, weather restraints, etc.). 88-Not Attempted due to Medical Conditions or Safety Concerns. Shower/Bathe Self (QC): 1 Lower Body Dressing (QC): 1 On/Off Footwear: 1 Toileting Hygiene (QC): 1 Pt in reclining chair. He transferred to shower with shuffling gate and assist x2 as he refused to use assistive device. Pt. sat on shower chair with max cues. After seated, pt dependent for doffing hospital gown, brief, and slipper socks. Pt provided with verbal and tactile cues to bathe, but was dependent for bathing as he would close his eyes throughout showering. Pt required OT to don hospital gown, slipper socks, brief, and shoulder brace. He transferred back to reclining chair with max assist x2, VC, and extra time to ambulate. Pt handed his hearing aids but was unable to put them in. Noted that pt was confused and struggled to remain alert during tx. Nursing notified and blood pressure taken. BP measured 157/88. Nursing notified. Pt in reclining chair with call light and chair alarm set. All needs met. Education OT Patient Education: Correct positioning, Modified ADL techniques, Progress toward Goal/Update tx plan, Purpose of tx/functional activities, Reviewed precautions, Rehab process, Safety issues, Transfer techniques Teaching Recipient: Patient Teaching Methods: Demonstration, Discussion Response to Teaching: Unable to Return Demonstration, Unable to Comprehend OT Short Term Goals Short Term Goals Time Frame: Feb 20, 2020 Oral hygiene: 6 Toileting hygiene: 5 Shower/bathe self: 3 Upper body dressin Lower body dressin Putting on/taking off footwear: 3 OT Detention Goals Detention Goals Time Frame: Feb 27, 2020 Eating (QC): 6 Oral Hygiene (QC): 6 Toileting Hygiene (QC): 6 Shower/Bathe Self (QC): 6 Upper Body Dressing (QC): 6 Lower Body Dressing (QC): 6 On/Off Footwear (QC): 6 Additional Goals: 1-Demonstrate ADL Tasks, 2-Verbalize Understanding, 3- ImproveStrength/Brandon 1=Demonstrate adherence to instructed precautions during ADL tasks. 2=Patient will verbalize/demonstrate understanding of assistive devices/modifications for ADL. 3=Patient will improve strength/tolerance for activity to enable patient to perform ADL's. OT Education/Plan Problem List/Assessment Assessment: Decreased Activ Tolerance, Decreased Safety Aware, Decreased UE Strength, Dependent Transfers, Impaired Funct Balance, Impaired I ADL's, Impaired Self-Care Skills Discharge Recommendations Plan/Recommendations: Continue POC Therapy Discharge Recommendati: Post Acute OT Treatment Plan/Plan of Care Treatment,Training & Education: Yes Patient would benefit from OT for education, treatment and training to promote independence in ADL's, mobility, safety and/or upper extremity function for ADL's. Plan of Care: ADL Retraining, Caregiver Training, Cognitive Retraining, Functional Mobility, Group Exercise/Act as Ind, UE Funct Exercise/Act Treatment Duration: Feb 27, 2020 Frequency: At least 5 of 7 days/Wk (IRF) Estimated Hrs Per Day: 1.5 hours per day Agreement: Yes Rehab Potential: Fair Time/GCodes Start Time: 09:00 Stop Time: 09:45 Total Time Billed (hr/min): 45 Billed Treatment Time 1, ADL 3 PEPE MARAVILLA OT Feb 16, 2020 09:54
[2020-02-16] MEDS: RT-ALBUTEROL SULF 2.5 MG/3 ML PRE-MIX VIAL INH SCH (09:59)
--- NOTE | 2020-02-16 11:36 | Podiatry Progress Note ---
Standard Progress Note Progress Notes/Assess & Plan Date Seen by a Provider: Feb 16, 2020 Time Seen by a Provider: 11:34 Progress/Assessment & Plan Onychomycosis, Peripheral Neuropathy, PAD Consultation was dictated. Foot care given. Follow up as needed. Final Diagnosis Onychomycosis, Peripheral Neuropathy, PAD JAMARCUS JUAREZ DPRadha Feb 16, 2020 11:36
--- NOTE | 2020-02-16 12:01 | Physical Therapy Daily Note ---
PT Daily Note-Current Subjective Patient has difficulty waking due to 2 pain pills issued for right shoulder pain. Agrees to PT. Pain Numeric Pain Scale: 0-No Pain Location: No Pain Reported Mental Status Patient Orientation: Normal For Age Transfers SCALE: Activities may be completed with or without assistive devices. 8-Fdqadklwtt-vaxvhzz completes the activity by him/herself with no assistance from a helper. 5-Set-up or Clean-up Assistance-helper sets up or cleans up; patient completes activity. [place] assists only prior to or following the activity. 4-Supervision or Touching Assistance-helper provides verbal cues and/or touching/steadying and/or contact guard assistance as patient completes activity. Assistance may be provided throughout the activity or intermittently. 3-Partial/Moderate Assistance-helper does LESS THAN HALF the effort. [place] lifts, holds or supports trunk or limbs, but provides less than half the effort. 2-Substantial/Maximal Assistance-helper does MORE THAN HALF the effort. [place] lifts or holds trunk or limbs and provides more than half the effort. 1-Xpymuomhp-nkggbi does ALL the effort. Patient does none of the effort to complete the activity. Or, the assistance of 2 or more helpers is required for the patient to complete the activity. If activity was not attempted, code reason: 7-Patient Refused. 9-Not Applicable-not attempted and the patient did not perform the activity before the current illness, exacerbation or injury. 10-Not Attempted due to Environmental Limitations-(lack of equipment, weather restraints, etc.). 88-Not Attempted due to Medical Conditions or Safety Concerns. Sit to Stand (QC): 2 x 5 sets Gait Training Does the Patient Walk?: Yes Distance: 150' x 6 Walk 10 feet (QC): 2 Walk 50 ft with 2 Turns(QC): 2 Walk 150 ft (QC): 2 Gait Assistive Device: None DIRECTOR DATABASE with WBOS and Parkinson's gait sequence Exercises Seated Therapy Exercises: Ankle pumps, Long arc quads, Hip flexion, Hip abd/add Seated Reps: 15 (2 sets) NuStep Minutes: 12 NuStep Workload: 4 (to improve functional mobility) Assessment Treatment interruption with title attorney x 10 min ([id number]). Patient had difficulty remaining on task and awake during session. Increase activity as tolerated by patient. PT Snf Goals Snf Goals PT Creative Intern Goals Time Frame: Mar 13, 2020 Roll Left & Right (QC): 6 Sit to Lying (QC): 6 Lying-Sitting on Side/Bed(QC): 6 Sit to Stand (QC): 6 Chair/Tqh-ce-Yttzq Xfer(QC): 6 Toilet Transfer (QC): 6 Car Transfer (QC): 6 Does the Patient Walk: Yes Walk 10 feet (QC): 5 Walk 50ft with 2 Turns (QC): 5 Walk 150 ft (QC): 5 Walking 10ft on Uneven Surface: 5 1 Step (curb) (QC): 5 4 Steps (QC): 5 12 Steps (QC): 9 Picking up an Object (QC): 5 Does the Pt use WC or Scooter?: No Wheel 50 feet with 2 turns (QC: 9 Wheel 150 feet: 9 PT Plan Treatment/Plan Treatment Plan: Continue Plan of Care Treatment Plan: Bed Mobility, Concurrent Therapy, Education, Functional Activity [place], Functional Strength, Group Therapy, Gait, Safety, Therapeutic Exercise, Transfers Treatment Duration: Mar 13, 2020 Frequency: At least 5 of 7 days/Wk (IRF) Estimated Hrs Per Day: 1.5 hours per day Patient and/or Family Agrees t: Yes Time/GCodes Time In: 1050 Time Out: 1200 Total Billed Treatment Time: 60 Total Billed Treatment 1 visit title attorney interruption ([id number]) GT x 2 30 min EX x 2 30 min MARIA E LILLY PT Feb 16, 2020 12:01
--- NOTE | 2020-02-16 12:02 | Progress Note - Urology ---
Progress Note-Urology Progress Notes/Assess & Plan Progress/Assessment & Plan VOIDING ON OWN BUT WITH SOME INCONTINENCE. OBSERVE FOR NOW Final Diagnosis URINE RETENTION BAM YOUNGER MD Feb 16, 2020 12:01
--- NOTE | 2020-02-16 13:55 | Physical Therapy Daily Note ---
PT Daily Note-Current Subjective Patient agrees to PT. Pain Numeric Pain Scale: 0-No Pain Location: No Pain Reported Mental Status Patient Orientation: Person, Time, Situation Transfers SCALE: Activities may be completed with or without assistive devices. 9-Hwtrigjwmk-vbxeyru completes the activity by him/herself with no assistance from a helper. 5-Set-up or Clean-up Assistance-helper sets up or cleans up; patient completes activity. [place] assists only prior to or following the activity. 4-Supervision or Touching Assistance-helper provides verbal cues and/or touching/steadying and/or contact guard assistance as patient completes activity. Assistance may be provided throughout the activity or intermittently. 3-Partial/Moderate Assistance-helper does LESS THAN HALF the effort. [place] lifts, holds or supports trunk or limbs, but provides less than half the effort. 2-Substantial/Maximal Assistance-helper does MORE THAN HALF the effort. [place] lifts or holds trunk or limbs and provides more than half the effort. 0-Eyvpimlzi-mdocsz does ALL the effort. Patient does none of the effort to complete the activity. Or, the assistance of 2 or more helpers is required for the patient to complete the activity. If activity was not attempted, code reason: 7-Patient Refused. 9-Not Applicable-not attempted and the patient did not perform the activity before the current illness, exacerbation or injury. 10-Not Attempted due to Environmental Limitations-(lack of equipment, weather restraints, etc.). 88-Not Attempted due to Medical Conditions or Safety Concerns. Exercises Supine Ex: Ankle pumps, Quad Set, Heel Slides, Straight leg raise Supine Reps: 12 (reclined in chair) Seated Therapy Exercises: Ankle pumps, Long arc quads, Hip flexion Seated Reps: 15 (x 2 sets) Assessment Patient more alert this p.m. Improving slowly with treatment plan. PT Skilled Nursing Goals Skilled Nursing Goals PT Skilled Nursing Goals Time Frame: Mar 13, 2020 Roll Left & Right (QC): 6 Sit to Lying (QC): 6 Lying-Sitting on Side/Bed(QC): 6 Sit to Stand (QC): 6 Chair/Dvs-wc-Feypb Xfer(QC): 6 Toilet Transfer (QC): 6 Car Transfer (QC): 6 Does the Patient Walk: Yes Walk 10 feet (QC): 5 Walk 50ft with 2 Turns (QC): 5 Walk 150 ft (QC): 5 Walking 10ft on Uneven Surface: 5 1 Step (curb) (QC): 5 4 Steps (QC): 5 12 Steps (QC): 9 Picking up an Object (QC): 5 Does the Pt use WC or Scooter?: No Wheel 50 feet with 2 turns (QC: 9 Wheel 150 feet: 9 PT Plan Treatment/Plan Treatment Plan: Continue Plan of Care Treatment Plan: Bed Mobility, Concurrent Therapy, Education, Functional Activity Brandon, Functional Strength, Group Therapy, Gait, Safety, Therapeutic Exercise, Transfers Treatment Duration: Mar 13, 2020 Frequency: At least 5 of 7 days/Wk (IRF) Estimated Hrs Per Day: 1.5 hours per day Patient and/or Family Agrees t: Yes Time/GCodes Time In: 1245 Time Out: 1300 Total Billed Treatment Time: 15 Total Billed Treatment 1 visit EX 15 min MARIA E LILLY PT Feb 16, 2020 13:55
--- NOTE | 2020-02-16 14:04 | Occupational Ther Daily Note ---
OT Current Status-Daily Note Subjective Pt. reports pain in right shoulder with movement passively. Does not report pain level but does wince with pain. Pt. has already had pain meds this a.m. Mental Status/Objective Patient Orientation: Person ADL-Treatment Therapy Code Descriptions/Definitions Functional [place] Measure: 0=Not Assessed/NA 4=Minimal Assistance 1=Total Assistance 5=Supervision or Setup 2=Maximal Assistance 6=Modified [place] 3=Moderate Assistance 7=Complete IndependenceSCALE: Activities may be completed with or without assistive devices. 5-Bkeejzzxzi-gkkozao completes the activity by him/herself with no assistance from a helper. 5-Set-up or Clean-up Assistance-helper sets up or cleans up; patient completes activity. [place] assists only prior to or following the activity. 4-Supervision or Touching Assistance-helper provides verbal cues and/or touching/steadying and/or contact guard assistance as patient completes activity. Assistance may be provided throughout the activity or intermittently. 3-Partial/Moderate Assistance-helper does LESS THAN HALF the effort. [place] lifts, holds or supports trunk or limbs, but provides less than half the effort. 2-Substantial/Maximal Assistance-helper does MORE THAN HALF the effort. [place] lifts or holds trunk or limbs and provides more than half the effort. 8-Nycqlfume-iuhrht does ALL the effort. Patient does none of the effort to complete the activity. Or, the assistance of 2 or more helpers is required for the patient to complete the activity. If activity was not attempted, code reason: 7-Patient Refused. 9-Not Applicable-not attempted and the patient did not perform the activity before the current illness, exacerbation or injury. 10-Not Attempted due to Environmental Limitations-(lack of equipment, weather restraints, etc.). 88-Not Attempted due to Medical Conditions or Safety Concerns. Other Treatment Pt. is up in chair when therapy enters room. Pt. is asleep. Pt. wakes up and agrees to work with OT. OT removes sling on right UE and works on gentle PROM to pt's tolerance level. Pt. is guarded at first with Passive elbow extension, but with encouragement, agrees. OT is able to gentle range right elbow into extension, with slightly less than full range. Pt. is able to actively flex right elbow, wrist, and fingers with encouragement. OT attempts gentle PROM to right shoulder in flexion, but pt. only tolerates approximately 10 degrees. He winces with pain and is guarded with movement. OT attempts several different times, but pt. is unable to tolerate. Right shoulder sling is re-applied and all needs met. Education OT Patient Education: Correct positioning, Exercise program, Purpose of tx/functional activities, Reviewed precautions, Rehab process Teaching Recipient: Patient Teaching Methods: Demonstration, Discussion Response to Teaching: Reinforcement Needed OT Short Term Goals Short Term Goals Time Frame: Feb 20, 2020 Oral hygiene: 6 Toileting hygiene: 5 Shower/bathe self: 3 Upper body dressin Lower body dressin Putting on/taking off footwear: 3 OT Credit Control Clerk Goals Credit Control Clerk Goals Time Frame: Feb 27, 2020 Eating (QC): 6 Oral Hygiene (QC): 6 Toileting Hygiene (QC): 6 Shower/Bathe Self (QC): 6 Upper Body Dressing (QC): 6 Lower Body Dressing (QC): 6 On/Off Footwear (QC): 6 Additional Goals: 1-Demonstrate ADL Tasks, 2-Verbalize Understanding, 3- ImproveStrength/Brandon 1=Demonstrate adherence to instructed precautions during ADL tasks. 2=Patient will verbalize/demonstrate understanding of assistive devices/modifications for ADL. 3=Patient will improve strength/tolerance for activity to enable patient to perform ADL's. OT Education/Plan Problem List/Assessment Assessment: Decreased Activ Tolerance, Decreased UE Strength, Impaired Cognition, Impaired Coordination, Impaired Funct Balance, Impaired I ADL's, Impaired Self-Care Skills, Restricted Funct UE ROM Discharge Recommendations Plan/Recommendations: Continue POC Therapy Discharge Recommendati: Post Acute OT Treatment Plan/Plan of Care Treatment,Training & Education: Yes Patient would benefit from OT for education, treatment and training to promote independence in ADL's, mobility, safety and/or upper extremity function for ADL's. Plan of Care: ADL Retraining, Caregiver Training, Cognitive Retraining, Functional Mobility, Group Exercise/Act as Ind, UE Funct Exercise/Act Treatment Duration: Feb 27, 2020 Frequency: At least 5 of 7 days/Wk (IRF) Estimated Hrs Per Day: 1.5 hours per day Agreement: Yes Rehab Potential: Fair Time/GCodes Start Time: 13:30 Stop Time: 14:00 Total Time Billed (hr/min): 30 Billed Treatment Time 1, Ex x 2 PEPE MARAVILLA OT Feb 16, 2020 14:04
--- NOTE | 2020-02-16 14:15 | NUR ---
OCCASSIONAL INCONT. OVER THE WEEKEND. BLADDER SCANNED. 274ML. PT UP TO RR, HAS LARGE BM AND VOIDS. PHONECALL TO DR. YOUNGER TO UPDATE ABOUT BLADDER SCAN. NEW ORDERS REC'D. PERFORM U/A AND REPORT RESULTS TO PT UNABLE TO VOID ANY FURTHER. WILL CATCH U/A @ NEXT RR TRIP.
--- NOTE | 2020-02-16 14:15 | CONSULTATION REPORT ---
DATE OF SERVICE: 02/16/2020 REASON FOR CONSULTATION: Foot care. HISTORY OF PRESENT ILLNESS: This is an 89-year-old patient had a right total reverse shoulder and is currently in rehabilitation at [facility]. He is in need of help with activities of daily living. He obviously cannot reach for and care for his feet at this time and is complaining about toenails bilaterally, especially with ambulation in shoe gear. PAST MEDICAL HISTORY: Includes Parkinson disease, hard of hearing, bilateral hearing aids, skin cancer. ALLERGIES: He has no known drug allergies. SOCIAL HISTORY: The patient is a current every day smoker. Does drink beer. Currently retired. He is single. PHYSICAL EXAMINATION: GENERAL: This is a well-developed male in no apparent distress. EXTREMITIES: He has 0/4 dorsalis pedis pulse bilaterally, 2/4 posterior tibial pulse on the right and 1/4 on the left. Cap refill time is approximately 3 seconds to the hallux bilaterally. Cool skin temperature bilaterally. NEUROLOGIC: The patient has intact protective sensation on the left and diminished protective sensation per 10 gram monofilament wire examination on the right. The patient has diminished vibratory sensation bilaterally. DERMATOLOGIC: The patient has some thick yellow dystrophic toenails with subungual debris associated with R1 and 5 and L1 and 4 digits. A slightly raised nonpigmented lesion to the dorsal medial aspect of the right second toe approximately 4 mm in diameter. No pain with palpation. MUSCULOSKELETAL FINDINGS: He has 4/5 muscle strength to the four major quadrants of the foot bilaterally. He has contracted toes to the fifth digit bilaterally. ASSESSMENT: 1. Peripheral vascular disease. 2. Idiopathic neuropathy. 3. Onychomycosis. 4. Hammer digit syndrome. PLAN: Various treatment options were discussed with the patient today. We discussed conservative treatment, which will include oral and topical antifungal medications. His toenails today debrided all 10 manually, mechanically. Betadine applied. We discussed appropriate shoe gear. He is welcome to follow up in our clinic upon discharge. Job ID: [id number] DocumentID: [id number] Dictated Date: 02/16/2020 11:42:46 Double Back Operator Date: 02/16/2020 14:15:17 Dictated By: JANNY HOLDER
[2020-02-16 15:49] VITALS: BP 120/64
[2020-02-16 16:03] VITALS: BP 124/66
--- NOTE | 2020-02-16 16:12 | NUR ---
CM/SS ADMISSION Patient admitted to ARU 02/12/20 from [facility] for Parkinson's. Patient had right shoulder replacement 02/10/20. He does exhibit cognitive deficit in conversation, SLUMS initial was 16/30 in moderate dementia range. Patient indicates he resided alone in [place] and had been continuing to drive. He plans to return home upon discharge and states a friend is going to come stay with him for a few days. Unit RN reports that his daughter Myriam communicated by phone that she would be coming to stay 4-5 days and then graduate to checking on him intermittently. PCP: This remains unconfirmed. Records reflect it is Dr. Cabral; however patient is adamant he is no longer affiliated with this physician. He reports his MD to be Dr. Brand, but there is a [facility] the [facility] name. Customer Manager will need to do more research to clarify. PHARMACY: Patient states he gets his Rx through [facility], and that there is a pharmacy, not just mail order. Requires clarification. INSURANCE: Admit process indicates patient has both Medicare and VA coverages. DME: Patient states he has a rollator walker and a shower chair. Need to confirm with daughter Myriam. BARRIERS TO DISCHARGE PLANNING: Cognition impairment is concerning in that patient should not be left unattended until fully mobile and hopefully more clear. Need to confirm someone will be staying with him to help with meals and home maintenance and for verbal cues about safety and home performance. If pain Rx is adding to cognition status, this should be considered. If Medicare is viable, recommend this insurance be used for post hospital needs. VA coverage is difficult to access timely for both home health and/or any medical equipment needs, literally 5-7 days for the simplest referral. CONTACTS: Patient reports he has 2 biological children and adopted 4. His daughter Myriam is the only one he has contact with, he has not spoken to the others since 1987 reportedly due to a bitter divorce situation. He did show emotion when speaking about the circumstances of the divorce, still painful to recall. Myriam Gray, Daughter [phone] Patient reports his daughter lives in [place], [place] up by [place]. Tra Patel, Friend [place], [place] [phone] Informed patient of the weekly care conference 02/18/20; he indicated he thought he might get to go home soon. Patient understood purpose and process of the weekly meeting.
[2020-02-16] MEDS: TAMSULOSIN 0.4 MG (FLOMAX) CAP PO SCH (17:55)
--- NOTE | 2020-02-16 18:00 | NUR ---
U/A CAUGHT PER ORDERS, LABELED, SENT TO LAB. SURAJ CARES GIVEN. WILL CON'T TO MONITOR.
[2020-02-16 18:22] LABS: BILIRUBIN,URINE NEGATIVE (NEGATIVE); CLARITY,URINE CLEAR; COLOR,URINE YELLOW; GLUCOSE, URINE (UA) NEGATIVE (NEGATIVE); KETONES,URINE NEGATIVE (NEGATIVE); LEUKOCYTE ESTERASE ,URINE NEGATIVE (NEGATIVE); NITRITE,URINE NEGATIVE (NEGATIVE); PROTEIN,URINE NEGATIVE (NEGATIVE)
[2020-02-16 18:45] LABS: BACTERIA,URINE NEGATIVE /HPF; RENAL EPITHELIAL CELLS,URINE RARE /HPF; WBC,URINE RARE /HPF
--- NOTE | 2020-02-16 19:20 | NUR ---
bedside report received from TEMO MURO, assume care of pt
[2020-02-16] MEDS: ENOXAPARIN 40 MG/0.4 ML (LOVENOX) SYR SC SCH (20:18)
--- NOTE | 2020-02-16 20:19 | NUR ---
pt took Colace & Senokot but refused miralax, c/o rt shoulder pain level 5/10 on numeric scale, Percocet 5/325 1 tab given
--- NOTE | 2020-02-16 21:05 | NUR ---
pt resting quietly in bed, pain level 0/10 on CNPI SCALE
[2020-02-17 05:29] VITALS: BP 137/65
[2020-02-17] MEDS: ASCORBIC ACID (VIT C) 500 MG TABLET PO SCH (06:50)
[2020-02-17] MEDS: oxyCODONE/APAP 5/325MG (PERCOCET 5) TABLET PO PRN ×2 (06:50→23:26)
--- NOTE | 2020-02-17 06:50 | NUR ---
c/o rt shoulder pain level 9/10 on numeric scale, Percocet 5/325 1 tab given
[2020-02-17] MEDS: CEPHALEXIN 250 MG (KEFLEX) CAP PO SCH ×2 (06:52→12:46)
--- NOTE | 2020-02-17 07:25 | NUR ---
rates pain 4/10 on numeric scale
[2020-02-17] MEDS: IRON SUCROSE 200 MG/10 ML (VENOFER) VIAL IV SCH (08:32)
[2020-02-17] MEDS: LORATADINE (CLARITIN) 10 MG TAB PO SCH (08:32)
[2020-02-17] MEDS: SENNA W/DOCUSATE (SENOKOT S) TABLET PO SCH ×2 (08:32→20:32)
[2020-02-17] MEDS: ASPIRIN E.C. 81 MG (ECOTRIN) TAB PO SCH (08:32)
[2020-02-17] MEDS: DOCUSATE SODIUM 100 MG (COLACE) CAP PO SCH ×2 (08:32→20:32)
[2020-02-17] MEDS: polyethylene glycoL POWDER 17 GM (MIRALAX) PACK PO SCH ×2 (08:34→20:32)
[2020-02-17] MEDS: MELOXICAM 7.5 MG (MOBIC) TABLET PO SCH (08:34)
--- NOTE | 2020-02-17 09:33 | Speech Therapy Daily Note ---
Speech Daily Progress Note Subjective Date Seen by Provider: Feb 17, 2020 Time Seen by Provider: 00:30 Patient was alert and talkative today. He states he is having a much better day than yesterday. Objective Patient completed some safety awareness tasks related to his discharge with 80% with 20% cues. Assessment Assessment Current Status: Good Progress Treatment Plan Continue Plan of Care Speech Short Term Goals Short Term Goals Short Term Goals 1) Patient will complete memory tasks related to his daily needs at 80% or greater given minimal cues. 2) Patient will complete problem solving tasks related to his daily needs at 80% or greater given minimal cues. 3) Patient will complete safety awareness tasks related to his daily needs at 80% or greater given minimal cues. Speech Alf Goals Master Technician Goals Patient will improve cognitive-communication abilities so that he may complete daily tasks with minimal assist. Speech-Plan Patient/Family Goals Patient/Family Goals: Patient plans on returning to his home in [facility]. This discharge may not be the safest due to his daily needs. Treatment Plan Speech Therapy Treatment Plan: Continue Plan of Care Treatment Duration: Feb 27, 2020 Frequency: 4 times per week (Pateint will receive skilled ST 4-5x per week) Estimated Hrs Per Day: .5 hour per day Rehab Potential: Fair Barriers to Learning: Patient's medical status, physical status Pt/Family Agrees to Plan: Yes Safety Risks/Education Teaching Recipient: Patient Teaching Methods: Demonstration, Discussion Response to Teaching: Verbalize Understanding, Return Demonstration Education Topics Provided: Continued safety within his room, safety of oral intake, communication of wants/needs Time Speech Therapy Time In: 08:30 Speech Therapy Time Out: 09:00 Total Billed Time: 30 Billed Treatment Time 1, ANNE-MARIE, PHILIP Mason Feb 17, 2020 09:33
--- NOTE | 2020-02-17 09:51 | PM&R Progress Note ---
Subjective HPI/CC On Admission Date Seen by Provider: Feb 17, 2020 Time Seen by Provider: 09:00 Subjective/Events-last exam 02/17/20: Pt having some urinary incontinence Detrol is now at 4mg and maintained on Flomax Appreciate Urology maintenance Had a large BM yesterday Pain is well controlled Overall doing much better 02/16/20: Sodium level 132, I did stop the Clinamix today WBC 3.1 Hgb 8.7 requiring iron infusions Bowels moved three days ago, will monitor that closely 02/15/20: Will stop IVF tomorrow Dysphagia is chronic Checking labs in am Daughter at bedside 02/14/20: Doing better Keeping Clinimix at gentle rate for now IV iron tolerated Hgb 9.1 BP is now better after BP was 80/50 yesterday when he was admitted He has been dehydrated before Will switch normal saline to Clinimix Midline was placed Podiatry will be consulted for toenails Will monitor pt closely Checked meds and labs Reviewed therapy notes Conferred with mail handler equipment operator of Systems General: Fatigue, Malaise Neurological: Weakness Objective Exam Vital Signs Vital Signs Date Time Temp Pulse Resp B/P (MAP) Pulse Ox O2 Delivery O2 Flow Rate FiO2 02/17/20 16:01 36.8 78 14 113/56 (75) 92 Room Air 02/16/20 15:49 21 02/13/20 05:25 1.00 Capillary Refill : Less Than 3 SecondsLess Than 3 Seconds General Appearance: No Apparent Distress, WD/WN, Chronically ill, Thin HEENT: PERRL/EOMI, Normal ENT Inspection, Pharynx Normal Neck: Full Range of Motion, Normal Inspection, Non Tender, Supple, Carotid Bruit Respiratory: Chest Non Tender, Lungs Clear, Normal Breath Sounds, No Accessory Muscle Use, No Respiratory Distress Cardiovascular: Regular Rate, Rhythm, No Edema, No Gallop, No JVD, No Murmur, Normal Peripheral Pulses Gastrointestinal: Normal Bowel Sounds, No Organomegaly, No Pulsatile Mass, Non Tender, Soft Back: Normal Inspection, No CVA Tenderness, No Vertebral Tenderness Extremity: Normal Capillary Refill, Normal Inspection, Normal Range of Motion (except right arm in sling), Non Tender, No Calf Tenderness, No Pedal Edema Neurologic/Psychiatric: Alert, Oriented x3, No Motor/Sensory Deficits, ham stripper II- XII Norm as Tested, Abnormal Gait, Depressed Affect, Disoriented, Motor Weakness (all extremities 4/5) Skin: Normal Color, Warm/Dry Lymphatic: No Adenopathy Results/Procedures Lab Patient resulted labs reviewed. FIM Transfers Therapy Code Descriptions/Definitions Functional [place] Measure: 0=Not Assessed/NA 4=Minimal Assistance 1=Total Assistance 5=Supervision or Setup 2=Maximal Assistance 6=Modified [place] 3=Moderate Assistance 7=Complete IndependenceSCALE: Activities may be completed with or without assistive devices. 5-Adeiadguav-jasctpk completes the activity by him/herself with no assistance from a helper. 5-Set-up or Clean-up Assistance-helper sets up or cleans up; patient completes activity. [place] assists only prior to or following the activity. 4-Supervision or Touching Assistance-helper provides verbal cues and/or touching/steadying and/or contact guard assistance as patient completes activity. Assistance may be provided throughout the activity or intermittently. 3-Partial/Moderate Assistance-helper does LESS THAN HALF the effort. [place] lifts, holds or supports trunk or limbs, but provides less than half the effort. 2-Substantial/Maximal Assistance-helper does MORE THAN HALF the effort. [place] lifts or holds trunk or limbs and provides more than half the effort. 2-Shqypdemb-hxhngn does ALL the effort. Patient does none of the effort to complete the activity. Or, the assistance of 2 or more helpers is required for the patient to complete the activity. If activity was not attempted, code reason: 7-Patient Refused. 9-Not Applicable-not attempted and the patient did not perform the activity before the current illness, exacerbation or injury. 10-Not Attempted due to Environmental Limitations-(lack of equipment, weather restraints, etc.). 88-Not Attempted due to Medical Conditions or Safety Concerns. Roll Left to Right (QC): 4 Sit to Lying (QC): 3 Sit to Stand (QC): 2 Chair/Spv-fo-Vuhci Xfer(QC): 2 Car Transfer (QC): 88 Gait Training Does the Patient Walk?: Yes Distance: 150' x 6 Walk 10 feet (QC): 2 Walk 50 ft with 2 Turns(QC): 2 Walk 150 ft (QC): 2 Walking 10ft/uneven surface-QC: 3 Gait Assistive Device: None Wheelchair Training Does the Pt Use a Wheelchair?: No Wheel 50 ft with 2 turns (QC): 9 Wheel 150 ft (QC): 9 Stair Training #of Steps: 1 1 Step (curb) (QC): 3 4 Steps (QC): 88 12 Steps (QC): 9 Stairs: Pattern: Step to Balance Picking up an Object (QC): 4 ADL-Treatment Eating (QC): 5 (per clinical judgment, pt will requires s/u at times for feeding managment.) Oral Hygiene (QC): 2 Shower/Bathe Self (QC): 1 Upper Body Dressing (QC): 2 (Max A: pt guards RUE during dressing. Pt requires max A for doffing/ donning sling with cues for completion. Pt able to don LUE gown, requires max A for RUE threading to gown.) Lower Body Dressing (QC): 1 On/Off Footwear (QC): 1 Toileting Hygiene (QC): 1 Toilet Transfer (QC): 3 (Mod assist) Assessment/Plan Assessment and Plan Assess & Plan/Chief Complaint Assessment: Parkinson's disease 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 Smoker Hypotension Urinary retention requiring adkins catheter placement Plan: IRF protocol Pain control IVF for hypotension Urology consult for urinary retention 02/13/20: Maintain midline IV Consult podiatry for toe nail care Change IV fluid to Clinimix Evaluate memory test IV iron infusion 02/14/20: IV iron Clinimix Pain control 02/15/20: Check labs in am SW to help at [facility] with daughter conversation 02/16/20: Continue pain control Sodium level noted at 132 Aggressive bowel regimen due to Parkinson's and constipation 02/17/20: Monitor incontinence Appreciate urology Maintain bowel regimen Continue Detrol and Flomax (1) Parkinson disease (2) Aftercare following right shoulder joint replacement surgery (3) Smoker (4) Hypotension ALFREDITO THOMSON DO Feb 17, 2020 09:51
--- NOTE | 2020-02-17 10:16 | Progress Note - Urology ---
Progress Note-Urology Progress Notes/Assess & Plan Progress/Assessment & Plan PATIENT STILL HAS INCONTINENCE DAY AND NIGHT. HAD SAME ISSUES AT HOME AND WAS TAKING MEDICINE FOR PROSTATE AND BLADDER. PLAN KEEP ON FLOMAX AND ADD DETROL LA 4 DAILY, AND FOLLOW UP WITH BLADDER SCAN PVR TO WATCH FOR RETENTION Final Diagnosis RETENTION AND INCONTINENCE BAM YOUNGER MD Feb 17, 2020 10:16
--- NOTE | 2020-02-17 10:18 | Occupational Ther Daily Note ---
OT Current Status-Daily Note Subjective Pt in reclining chair when OT entered room. No c/o pain. Pt agreeable to therapy. Mental Status/Objective Patient Orientation: Person Attachments: Central Line ADL-Treatment Therapy Code Descriptions/Definitions Functional [place] [facility] Measure: 0=Not Assessed/NA 4=Minimal Assistance 1=Total Assistance 5=Supervision or Setup 2=Maximal Assistance 6=Modified [place] [facility] 3=Moderate Assistance 7=Complete IndependenceSCALE: Activities may be completed with or without assistive devices. 8-Dvgzodbpjf-eaqbpga completes the activity by him/herself with no assistance from a helper. 5-Set-up or Clean-up Assistance-helper sets up or cleans up; patient completes activity. [place] assists only prior to or following the activity. 4-Supervision or Touching Assistance-helper provides verbal cues and/or touching/steadying and/or contact guard assistance as patient completes activity. Assistance may be provided throughout the activity or intermittently. 3-Partial/Moderate Assistance-helper does LESS THAN HALF the effort. [place] li fts, holds or supports trunk or limbs, but provides less than half the effort. 2-Substantial/Maximal Assistance-helper does MORE THAN HALF the effort. [place] lifts or holds trunk or limbs and provides more than half the effort. 6-Ivstqvhpg-fgjkxa does ALL the effort. Patient does none of the effort to complete the activity. Or, the assistance of 2 or more helpers is required for the patient to complete the activity. If activity was not attempted, code reason: 7-Patient Refused. 9-Not Applicable-not attempted and the patient did not perform the activity before the current illness, exacerbation or injury. 10-Not Attempted due to Environmental Limitations-(lack of equipment, weather restraints, etc.). 88-Not Attempted due to Medical Conditions or Safety Concerns. Upper Body Dressing (QC): 2 (Max A for donning button up shirt) Lower Body Dressing (QC): 2 (Max A for donning pants) Toileting Hygiene (QC): 1 Pt seated in reclining chair. He was agreeable to dressing in his clothing this am. Pt required max A and VC for donning button up shirt after OT doffed right UE sling and hospital gown. OT provided skilled education on sequencing to safely don shirt while following precautions. Pt required max A and VC for sequencing while donning pants. Throughout dressing, pt required extra time due to SOA and for sequencing. Pt. dependent for toilet hygiene after using urinal while seated in reclining chair. He reported that he is struggling with bringing food to his mouth as he is right handed and unable to use due to surgery. Pt issued red foam handle and OT educated him on use and benefits. Pt demonstrated more control and better grasp of utensil with built up handle. Noted that pt required extra time to complete all tasks due to SOA and to process and sequence steps. He was in reclining chair with call light and chair alarm set. All needs met. Education OT Patient Education: Correct positioning, Modified ADL techniques, Progress toward Goal/Update tx plan, Purpose of tx/functional activities, Reviewed precautions, Rehab process, Safety issues Teaching Recipient: Patient Teaching Methods: Demonstration, Discussion Response to Teaching: Reinforcement Needed OT Short Term Goals Short Term Goals Time Frame: Feb 20, 2020 Oral hygiene: 6 Toileting hygiene: 5 Shower/bathe self: 3 Upper body dressin Lower body dressin Putting on/taking off footwear: 3 OT Human Relations Professor Goals [facility] Goals Time Frame: Feb 27, 2020 Eating (QC): 6 Oral Hygiene (QC): 6 Toileting Hygiene (QC): 6 Shower/Bathe Self (QC): 6 Upper Body Dressing (QC): 6 Lower Body Dressing (QC): 6 On/Off Footwear (QC): 6 Additional Goals: 1-Demonstrate ADL Tasks, 2-Verbalize Understanding, 3- ImproveStrength/Brandon 1=Demonstrate adherence to instructed precautions during ADL tasks. 2=Patient will verbalize/demonstrate understanding of assistive devices/modifications for ADL. 3=Patient will improve strength/tolerance for activity to enable patient to perform ADL's. OT Education/Plan Problem List/Assessment Assessment: Decreased Activ Tolerance, Decreased UE Strength, Dependent Transfers, Impaired Coordination, Impaired Funct Balance, Impaired I ADL's, Impaired Self-Care Skills, Restricted Funct UE ROM Discharge Recommendations Plan/Recommendations: Continue POC Comment Discharge location and equipment needs to be determined. Treatment Plan/Plan of Care Treatment,Training & Education: Yes Patient would benefit from OT for education, treatment and training to promote independence in ADL's, mobility, safety and/or upper extremity function for ADL's. Plan of Care: ADL Retraining, Caregiver Training, Cognitive Retraining, F unctional Mobility, Group Exercise/Act as Ind, UE Funct Exercise/Act Treatment Duration: Feb 27, 2020 Frequency: At least 5 of 7 days/Wk (IRF) Estimated Hrs Per Day: 1.5 hours per day Agreement: Yes Rehab Potential: Fair Time/GCodes Start Time: 09:00 Stop Time: 10:00 Total Time Billed (hr/min): 60 Billed Treatment Time 1, ADL 4 PEPE MARAVILLA OT Feb 17, 2020 10:18
--- NOTE | 2020-02-17 10:44 | Physical Therapy Daily Note ---
PT Daily Note-Current Subjective Pt sitting in recliner upon arrival. Pt agrees to PT despite reporting fatigue. Pain Numeric Pain Scale: 3 Location: Right Location Body Site: Shoulder Pain Description: Ache Mental Status Patient Orientation: Person, Place, Situation Attachments: NG Tube, Other-See Comments (Sling for R UE) Transfers SCALE: Activities may be completed with or without assistive devices. 9-Teelqzhmok-weuaycs completes the activity by him/herself with no assistance from a helper. 5-Set-up or Clean-up Assistance-helper sets up or cleans up; patient completes activity. [place] assists only prior to or following the activity. 4-Supervision or Touching Assistance-helper provides verbal cues and/or touching/steadying and/or contact guard assistance as patient completes activity. Assistance may be provided throughout the activity or intermittently. 3-Partial/Moderate Assistance-helper does LESS THAN HALF the effort. [place] lifts, holds or supports trunk or limbs, but provides less than half the effort. 2-Substantial/Maximal Assistance-helper does MORE THAN HALF the effort. [place] lifts or holds trunk or limbs and provides more than half the effort. 7-Fejqhditl-fejnzo does ALL the effort. Patient does none of the effort to complete the activity. Or, the assistance of 2 or more helpers is required for the patient to complete the activity. If activity was not attempted, code reason: 7-Patient Refused. 9-Not Applicable-not attempted and the patient did not perform the activity before the current illness, exacerbation or injury. 10-Not Attempted due to Environmental Limitations-(lack of equipment, weather restraints, etc.). 88-Not Attempted due to Medical Conditions or Safety Concerns. Sit to Stand (QC): 3 Weight Bearing Full Weight Bearing Full Weight Bearing Exercises Seated Therapy Exercises: Ankle pumps, Hip flexion, Kicking activity, Glut set Seated Reps: 20 Treatments Pt asks to stand to use BR upon arrival. Pt attempts several times then ELECTRIC METER SETTER asks if could give assistance. Pt was not able to have BM as indicated. Pt reports needing to return to recliner to rest/feels off balance. Pt completes Seated EX after short RB. Pt given pt education over what Parkinson progress can be. Pt resting at end of tx with all needs met, call light in hand. Assessment Current Status: Fair Progress Pt very drowsy, difficulty staying awake. PT Body Shop Technician Goals Body Shop Technician Goals PT Body Shop Technician Goals Time Frame: Mar 13, 2020 Roll Left & Right (QC): 6 Sit to Lying (QC): 6 Lying-Sitting on Side/Bed(QC): 6 Sit to Stand (QC): 6 Chair/Flv-fb-Beely Xfer(QC): 6 Toilet Transfer (QC): 6 Car Transfer (QC): 6 Does the Patient Walk: Yes Walk 10 feet (QC): 5 Walk 50ft with 2 Turns (QC): 5 Walk 150 ft (QC): 5 Walking 10ft on Uneven Surface: 5 1 Step (curb) (QC): 5 4 Steps (QC): 5 12 Steps (QC): 9 Picking up an Object (QC): 5 Does the Pt use WC or Scooter?: No Wheel 50 feet with 2 turns (QC: 9 Wheel 150 feet: 9 PT Plan Problem List Problem List: Activity Tolerance, Functional Strength, Safety, Balance, Gait, Transfer Treatment/Plan Treatment Plan: Continue Plan of Care Treatment Plan: Bed Mobility, Concurrent Therapy, Education, Functional Activity [place], Functional Strength, Group Therapy, Gait, Safety, Therapeutic Exercise, Transfers Treatment Duration: Mar 13, 2020 Frequency: At least 5 of 7 days/Wk (IRF) Estimated Hrs Per Day: 1.5 hours per day Patient and/or Family Agrees t: Yes Safety Risks/Education Patient Education: Gait Training, Transfer Techniques, Correct Positioning, Safety Issues Teaching Recipient: Patient Teaching Methods: Discussion Response to Teaching: Verbalize Understanding Time/GCodes Time In: 1000 Time Out: 1045 Total Billed Treatment Time: 45 Total Billed Treatment 1, FA x2 (25m) & EX (20m) ALEJANDRO BLOUNT PTA Feb 17, 2020 10:44
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
--- NOTE | 2020-02-17 13:37 | Physical Therapy Daily Note ---
PT Daily Note-Current Subjective Pt in BR per Nurse upon arrival. Pt agrees to PT after finished. Pain Location: No Pain Reported Mental Status Patient Orientation: Person, Place Transfers SCALE: Activities may be completed with or without assistive devices. 6-Sehzpdaepe-pemmqrj completes the activity by him/herself with no assistance from a helper. 5-Set-up or Clean-up Assistance-helper sets up or cleans up; patient completes activity. [place] assists only prior to or following the activity. 4-Supervision or Touching Assistance-helper provides verbal cues and/or touching/steadying and/or contact guard assistance as patient completes activity. Assistance may be provided throughout the activity or intermittently. 3-Partial/Moderate Assistance-helper does LESS THAN HALF the effort. [place] lifts, holds or supports trunk or limbs, but provides less than half the effort. 2-Substantial/Maximal Assistance-helper does MORE THAN HALF the effort. [place] lifts or holds trunk or limbs and provides more than half the effort. 5-Gvtlxfkdl-ogqezd does ALL the effort. Patient does none of the effort to complete the activity. Or, the assistance of 2 or more helpers is required for the patient to complete the activity. If activity was not attempted, code reason: 7-Patient Refused. 9-Not Applicable-not attempted and the patient did not perform the activity before the current illness, exacerbation or injury. 10-Not Attempted due to Environmental Limitations-(lack of equipment, weather restraints, etc.). 88-Not Attempted due to Medical Conditions or Safety Concerns. Sit to Stand (QC): 4 Toilet Transfer (QC): 3 Weight Bearing Full Weight Bearing Full Weight Bearing Gait Training Does the Patient Walk?: Yes Distance: 15' Walk 10 feet (QC): 4 Gait Persons Needed: 1 Gait Assistive Device: Handheld Assist Treatments Pt using BR for ~15m before HOUSE MOVER encourages pt stand. Pt felt as though needed to sit longer. HOUSE MOVER assists pt to stand then pt feels ill. Pt vomits in sink before HOUSE MOVER assists with transferring and repositioning in recliner to comfort. Pt has all needs met, including bucket & call light. nurse is notified. Assessment Current Status: Fair Progress Pt is very drowsy, falling asleep in BR. Pt demonstrates normal Parkinson gait pattern. PT Bull Rider Goals Bull Rider Goals PT Bull Rider Goals Time Frame: Mar 13, 2020 Roll Left & Right (QC): 6 Sit to Lying (QC): 6 Lying-Sitting on Side/Bed(QC): 6 Sit to Stand (QC): 6 Chair/Dcx-pq-Fsuyq Xfer(QC): 6 Toilet Transfer (QC): 6 Car Transfer (QC): 6 Does the Patient Walk: Yes Walk 10 feet (QC): 5 Walk 50ft with 2 Turns (QC): 5 Walk 150 ft (QC): 5 Walking 10ft on Uneven Surface: 5 1 Step (curb) (QC): 5 4 Steps (QC): 5 12 Steps (QC): 9 Picking up an Object (QC): 5 Does the Pt use WC or Scooter?: No Wheel 50 feet with 2 turns (QC: 9 Wheel 150 feet: 9 PT Plan Problem List Problem List: Activity Tolerance, Functional Strength, Safety, Balance, Gait Treatment/Plan Treatment Plan: Continue Plan of Care Treatment Plan: Bed Mobility, Concurrent Therapy, Education, Functional Activity [place], Functional Strength, Group Therapy, Gait, Safety, Therapeutic Exercise, Transfers Treatment Duration: Mar 13, 2020 Frequency: At least 5 of 7 days/Wk (IRF) Estimated Hrs Per Day: 1.5 hours per day Patient and/or Family Agrees t: Yes Safety Risks/Education Patient Education: Gait Training, Transfer Techniques, Correct Positioning, Safety Issues Teaching Recipient: Patient Teaching Methods: Discussion Response to Teaching: Verbalize Understanding Time/GCodes Time In: 1300 Time Out: 1330 Total Billed Treatment Time: 30 Total Billed Treatment 1, FA x2 (30m) ALEJANDRO BLOUNT PTA Feb 17, 2020 13:37
[2020-02-17] MEDS: ACETAMINOPHEN 500 MG TAB (TYLENOL) PO PRN (15:50)
[2020-02-17 16:01] VITALS: BP 113/56
[2020-02-17] MEDS: TAMSULOSIN 0.4 MG (FLOMAX) CAP PO SCH (19:00)
[2020-02-17] MEDS: ENOXAPARIN 40 MG/0.4 ML (LOVENOX) SYR SC SCH (20:32)
[2020-02-17] MEDS: TOLTERODINE LA 4 MG (DETROL) CAP PO SCH (20:32)
[2020-02-17] MEDS: ALPRAZolam 0.25 MG (XANAX) TAB PO PRN (23:26)
[2020-02-18] MEDS: oxyCODONE/APAP 5/325MG (PERCOCET 5) TABLET PO PRN ×2 (05:27→18:06)
[2020-02-18] MEDS: ASCORBIC ACID (VIT C) 500 MG TABLET PO SCH (05:27)
[2020-02-18 05:33] VITALS: BP 120/64
--- NOTE | 2020-02-18 05:47 | PM&R Progress Note ---
Subjective HPI/CC On Admission Date Seen by Provider: Feb 18, 2020 Time Seen by Provider: 09:00 Subjective/Events-last exam 02/18/20: Bowels moved today Restless, so was given Xanax last night but it appears that he might be over- sedated from that Sleeping in quite a bit this morning Denies any pain 02/17/20: Pt having some urinary incontinence Detrol is now at 4mg and maintained on Flomax Appreciate Urology maintenance Had a large BM yesterday Pain is well controlled Overall doing much better 02/16/20: Sodium level 132, I did stop the Clinamix today WBC 3.1 Hgb 8.7 requiring iron infusions Bowels moved three days ago, will monitor that closely 02/15/20: Will stop IVF tomorrow Dysphagia is chronic Checking labs in am Daughter at bedside 02/14/20: Doing better Keeping Clinimix at gentle rate for now IV iron tolerated Hgb 9.1 BP is now better after BP was 80/50 yesterday when he was admitted He has been dehydrated before Will switch normal saline to Clinimix Midline was placed Podiatry will be consulted for toenails Will monitor pt closely Checked meds and labs Reviewed therapy notes Conferred with [facility] surgeon of Systems General: Fatigue, Malaise Neurological: Weakness Objective Exam Vital Signs Vital Signs Date Time Temp Pulse Resp B/P (MAP) Pulse Ox O2 Delivery O2 Flow Rate FiO2 02/18/20 18:00 36.4 79 16 124/70 (88) 92 Room Air 02/16/20 15:49 21 02/13/20 05:25 1.00 Capillary Refill : Less Than 3 SecondsLess Than 3 Seconds General Appearance: No Apparent Distress, WD/WN, Chronically ill, Thin HEENT: PERRL/EOMI, Normal ENT Inspection, Pharynx Normal Neck: Full Range of Motion, Normal Inspection, Non Tender, Supple, Carotid Bruit Respiratory: Chest Non Tender, Lungs Clear, Normal Breath Sounds, No Accessory Muscle Use, No Respiratory Distress Cardiovascular: Regular Rate, Rhythm, No Edema, No Gallop, No JVD, No Murmur, Normal Peripheral Pulses Gastrointestinal: Normal Bowel Sounds, No Organomegaly, No Pulsatile Mass, Non Tender, Soft Back: Normal Inspection, No CVA Tenderness, No Vertebral Tenderness Extremity: Normal Capillary Refill, Normal Inspection, Normal Range of Motion (except right arm in sling), Non Tender, No Calf Tenderness, No Pedal Edema Neurologic/Psychiatric: Alert, Oriented x3, No Motor/Sensory Deficits, paying teller II- XII Norm as Tested, Abnormal Gait, Depressed Affect, Disoriented, Motor Weakness (all extremities 4/5) Skin: Normal Color, Warm/Dry Lymphatic: No Adenopathy Results/Procedures Lab Patient resulted labs reviewed. FIM Transfers Therapy Code Descriptions/Definitions Functional [place] Measure: 0=Not Assessed/NA 4=Minimal Assistance 1=Total Assistance 5=Supervision or Setup 2=Maximal Assistance 6=Modified [place] 3=Moderate Assistance 7=Complete IndependenceSCALE: Activities may be completed with or without assistive devices. 9-Dytvyvzewc-zafyyoe completes the activity by him/herself with no assistance from a helper. 5-Set-up or Clean-up Assistance-helper sets up or cleans up; patient completes activity. [place] assists only prior to or following the activity. 4-Supervision or Touching Assistance-helper provides verbal cues and/or touching/steadying and/or contact guard assistance as patient completes ac tivity. Assistance may be provided throughout the activity or intermittently. 3-Partial/Moderate Assistance-helper does LESS THAN HALF the effort. [place] lifts, holds or supports trunk or limbs, but provides less than half the effort. 2-Substantial/Maximal Assistance-helper does MORE THAN HALF the effort. [place] lifts or holds trunk or limbs and provides more than half the effort. 6-Uzjaqxwjz-aavlqt does ALL the effort. Patient does none of the effort to complete the activity. Or, the assistance of 2 or more helpers is required for the patient to complete the activity. If activity was not attempted, code reason: 7-Patient Refused. 9-Not Applicable-not attempted and the patient did not perform the activity before the current illness, exacerbation or injury. 10-Not Attempted due to Environmental Limitations-(lack of equipment, weather restraints, etc.). 88-Not Attempted due to Medical Conditions or Safety Concerns. Roll Left to Right (QC): 4 Sit to Lying (QC): 3 Sit to Stand (QC): 4 Chair/Ayz-bb-Ywjsw Xfer(QC): 2 Car Transfer (QC): 88 Gait Training Does the Patient Walk?: Yes Distance: 15' Walk 10 feet (QC): 4 Walk 50 ft with 2 Turns(QC): 2 Walk 150 ft (QC): 2 Walking 10ft/uneven surface-QC: 3 Gait Persons Needed: 1 Gait Assistive Device: Handheld Assist Wheelchair Training Does the Pt Use a Wheelchair?: No Wheel 50 ft with 2 turns (QC): 9 Wheel 150 ft (QC): 9 Stair Training #of Steps: 1 1 Step (curb) (QC): 3 4 Steps (QC): 88 12 Steps (QC): 9 Stairs: Pattern: Step to Balance Picking up an Object (QC): 4 ADL-Treatment Eating (QC): 5 (per clinical judgment, pt will requires s/u at times for feeding managment.) Oral Hygiene (QC): 2 Shower/Bathe Self (QC): 1 Upper Body Dressing (QC): 2 (Max A for donning button up shirt) Lower Body Dressing (QC): 2 (Max A for donning pants) On/Off Footwear (QC): 1 Toileting Hygiene (QC): 2 (Max A) Toilet Transfer (QC): 4 (CGA) Assessment/Plan Assessment and Plan Assess & Plan/Chief Complaint Assessment: Parkinson's disease 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 Smoker Hypotension Urinary retention requiring adkins catheter placement Plan: IRF protocol Pain control IVF for hypotension Urology consult for urinary retention 02/13/20: Maintain midline IV Consult podiatry for toe nail care Change IV fluid to Clinimix Evaluate memory test IV iron infusion 02/14/20: IV iron Clinimix Pain control 02/15/20: Check labs in am SW to help at DC with daughter conversation 02/16/20: Continue pain control Sodium level noted at 132 Aggressive bowel regimen due to Parkinson's and constipation 02/17/20: Monitor incontinence Appreciate urology Maintain bowel regimen Continue Detrol and Flomax 02/18/20: Limit Xanax at tree chipper for falls Manage pain (1) Parkinson disease (2) Aftercare following right shoulder joint replacement surgery (3) Smoker (4) Hypotension ALFREDITO THOMSON DO Feb 18, 2020 05:47
[2020-02-18] MEDS: ASPIRIN E.C. 81 MG (ECOTRIN) TAB PO SCH (08:16)
[2020-02-18] MEDS: SENNA W/DOCUSATE (SENOKOT S) TABLET PO SCH ×2 (08:16→20:36)
[2020-02-18] MEDS: MELOXICAM 7.5 MG (MOBIC) TABLET PO SCH (08:16)
[2020-02-18] MEDS: DOCUSATE SODIUM 100 MG (COLACE) CAP PO SCH ×2 (08:17→20:36)
[2020-02-18] MEDS: polyethylene glycoL POWDER 17 GM (MIRALAX) PACK PO SCH ×2 (08:17→20:36)
[2020-02-18] MEDS: LORATADINE (CLARITIN) 10 MG TAB PO SCH (08:17)
--- NOTE | 2020-02-18 10:53 | Progress Note ---
MARY COLLINS MED STUDENT 02/18/20 1053: Progress Note 89 yo M appears in no acute distress, depressed affect, and generally non- engaging/ reserved Neuro Exam: A&Ox3 CN II - pinpoint pupils w/o response to light CN III - unable to adduct CN IV-XII intact Pain /10 (patient states that he is used to the pain) Strength: UE +4/5 bilaterally Left LE +3/5 Right LE +4/5 Patient states legs feel like they weigh a thousand pounds Patient is able to perform rapid alternating movements via UE bilaterally Reflexes not tested Parkinson: Noticeable flat affect and bradykinesia No noticeable pill rolling, tremor, or rigidity Patient describes day as being so so in regards to his gait OMT: Unable to suggest OMM due to patient need for restroom. Follow up attempt was unsuccessful due to working with nurse. KENIA THOMSON DO 02/18/20 1851: Supervisory-Addendum Brief Verification & Attestation Participated in pt care: history, MDM, physical Personally performed: exam, history, MDM, supervision of care Care discussed with: Medical Student Procedures: n/a Results interpretation: Verified all documentation Verification and Attestation of Medical Student E/M Service A medical student performed and documented this service in my presence. I reviewed and verified all information documented by the medical student and made modifications to such information, when appropriate. I personally performed the physical exam and medical decision making. Kenia Thomson, Feb 18, 2020,18:51 MARY COLLINS MED STUDENT Feb 18, 2020 10:53 KENIA THOMSON DO Feb 18, 2020 18:51
--- NOTE | 2020-02-18 10:56 | Occupational Ther Daily Note ---
OT Current Status-Daily Note Subjective Pt asleep in bed when OT entered the room. No c/o pain this am. Once awake, pt agreeable to therapy. Mental Status/Objective Patient Orientation: Person Attachments: IV ADL-Treatment Therapy Code Descriptions/Definitions Functional [place] Measure: 0=Not Assessed/NA 4=Minimal Assistance 1=Total Assistance 5=Supervision or Setup 2=Maximal Assistance 6=Modified [place] 3=Moderate Assistance 7=Complete IndependenceSCALE: Activities may be completed with or without assistive devices. 2-Vcieszdbcs-uqnfnff completes the activity by him/herself with no assistance from a helper. 5-Set-up or Clean-up Assistance-helper sets up or cleans up; patient completes activity. [place] assists only prior to or following the activity. 4-Supervision or Touching Assistance-helper provides verbal cues and/or touching/steadying and/or contact guard assistance as patient completes activity. Assistance may be provided throughout the activity or intermittently. 3-Partial/Moderate Assistance-helper does LESS THAN HALF the effort. [place] lifts, holds or supports trunk or limbs, but provides less than half the effort. 2-Substantial/Maximal Assistance-helper does MORE THAN HALF the effort. [place] lifts or holds trunk or limbs and provides more than half the effort. 5-Cjgrpulnm-ivkkjb does ALL the effort. Patient does none of the effort to complete the activity. Or, the assistance of 2 or more helpers is required for the patient to complete the activity. If activity was not attempted, code reason: 7-Patient Refused. 9-Not Applicable-not attempted and the patient did not perform the activity before the current illness, exacerbation or injury. 10-Not Attempted due to Environmental Limitations-(lack of equipment, weather restraints, etc.). 88-Not Attempted due to Medical Conditions or Safety Concerns. Shower/Bathe Self (QC): 3 (Min A with sponge bath sitting on side of bed.) Upper Body Dressing (QC): 2 (Max A to don shirt and brace) Lower Body Dressing (QC): 3 (Min A ) On/Off Footwear: 3 (Mod A to don slipper socks) Toileting Hygiene (QC): 3 (Mod A) Pt asleep in bed. OT oriented him to time and place once awake. Pt agreeable to sponge bath at EOB. He transferred to EOB with Min A with legs. Pt handed warm washcloths and provided cues to wash. He required Min A to wash feet while remaining seated EOB. Pt. stood with min A to doff wet brief. He was able to cleanse storm area once handed a washcloth. Pt able to don shirt with min A and VC. He was able to thread feet into pant legs independently while seated at EOB and required min A for pulling pants over hips while in stance. Pt able to don R slipper sock by bringing R foot to left knee. He was SOB after completing one sock. OT provided skilled education on pursed lip breathing to facilitate air flow. Pt attempted to bring L foot to R knee but was fatigued, so OT completed task. Pt transferred to reclining chair with Min A. Once seated in chair, OT provided PROM to R shoulder. Pt tolerated shoulder flexion PROM to approximately 75 degrees. He completed 3 sets of 10 repetitions of biceps curls bilaterally with OT providing positioning and facilitating R UE. Pt in reclining chair with call light at the end of session. All needs met. Education OT Patient Education: Correct positioning, Exercise program, Modified ADL techniques, Progress toward Goal/Update tx plan, Purpose of tx/functional activities, Reviewed precautions, Rehab process, Safety issues Teaching Recipient: Patient Teaching Methods: Demonstration, Discussion Response to Teaching: Verbalize Understanding, Return Demonstration, Reinforcement Needed OT Short Term Goals Short Term Goals Time Frame: Feb 20, 2020 Oral hygiene: 6 Toileting hygiene: 5 Shower/bathe self: 3 Upper body dressin Lower body dressin Putting on/taking off footwear: 3 OT Small Engine Technician Goals Small Engine Technician Goals Time Frame: Feb 27, 2020 Eating (QC): 6 Oral Hygiene (QC): 6 Toileting Hygiene (QC): 6 Shower/Bathe Self (QC): 6 Upper Body Dressing (QC): 6 Lower Body Dressing (QC): 6 On/Off Footwear (QC): 6 Additional Goals: 1-Demonstrate ADL Tasks, 2-Verbalize Understanding, 3- ImproveStrength/Brandon 1=Demonstrate adherence to instructed precautions during ADL tasks. 2=Patient will verbalize/demonstrate understanding of assistive rodney raheel/modifications for ADL. 3=Patient will improve strength/tolerance for activity to enable patient to perform ADL's. OT Education/Plan Problem List/Assessment Assessment: Decreased Activ Tolerance, Decreased UE Strength, Dependent Transfers, Impaired Bed Mobility, Impaired Funct Balance, Impaired I ADL's, Impaired Self-Care Skills, Restricted Funct UE ROM Discharge Recommendations Plan/Recommendations: Continue POC Therapy Discharge Recommendati: Post Acute OT Treatment Plan/Plan of Care Treatment,Training & Education: Yes Patient would benefit from OT for education, treatment and training to promote independence in ADL's, mobility, safety and/or upper extremity function for ADL's. Plan of Care: ADL Retraining, Caregiver Training, Cognitive Retraining, Functional Mobility, Group Exercise/Act as Ind, UE Funct Exercise/Act Treatment Duration: Feb 27, 2020 Frequency: At least 5 of 7 days/Wk (IRF) Estimated Hrs Per Day: 1.5 hours per day Agreement: Yes Rehab Potential: Fair Time/GCodes Start Time: 09:30 Stop Time: 10:45 Total Time Billed (hr/min): 75 Billed Treatment Time 1, ADL 4 (60 minutes), EX 1 (15 minutes) PEPE MARAVILLA OT Feb 18, 2020 10:56
--- NOTE | 2020-02-18 11:12 | Speech Therapy Daily Note ---
Speech Daily Progress Note Subjective Date Seen by Provider: Feb 18, 2020 Time Seen by Provider: 00:30 Patient was resting in his bed. He was very sleepy this am and required frequent prompts to engage with therapy. Objective Patient completed fill in the blank cognitive tasks with 80% given moderate cues and response time. Assessment Assessment Current Status: Fair Progress Treatment Plan Continue Plan of Care Speech Short Term Goals Short Term Goals Short Term Goals 1) Patient will complete memory tasks related to his daily needs at 80% or greater given minimal cues. 2) Patient will complete problem solving tasks related to his daily needs at 80% or greater given minimal cues. 3) Patient will complete safety awareness tasks related to his daily needs at 80% or greater given minimal cues. Speech Youth Care Specialist Goals Youth Care Specialist Goals Patient will improve cognitive-communication abilities so that he may complete daily tasks with minimal assist. Speech-Plan Patient/Family Goals Patient/Family Goals: Patient plans on returning to his home upon discharge, however due to his medical needs this may not be the safest discharge plan. Treatment Plan Speech Therapy Treatment Plan: Continue Plan of Care Treatment Duration: Feb 27, 2020 Frequency: 4 times per week (Pateint will receive skilled ST 4-5x per week) Estimated Hrs Per Day: .5 hour per day Rehab Potential: Fair Barriers to Learning: Patient's age, cognitive deficits, medical status Pt/Family Agrees to Plan: Yes Safety Risks/Education Teaching Recipient: Patient Teaching Methods: Demonstration, Discussion Response to Teaching: Verbalize Understanding, Return Demonstration Education Topics Provided: Continued need for safety awareness, communication of wants/needs Safety of oral intake Time Speech Therapy Time In: 08:30 Speech Therapy Time Out: 09:00 Total Billed Time: 30 Billed Treatment Time 1, ANNE-MARIE, PHILIP MOYA Feb 18, 2020 11:12
--- NOTE | 2020-02-18 11:32 | Physical Therapy Daily Note ---
PT Daily Note-Current Subjective Pt is sitting in recliner upon arrival. Pt is very drowsy upon arrival, difficult to keep awake to complete tx. Pt agrees to PT. Pain Numeric Pain Scale: 3 Location: Right Location Body Site: Shoulder Pain Description: Ache Mental Status Patient Orientation: Person Attachments: Other-See Comments (Sling for R UE) Transfers SCALE: Activities may be completed with or without assistive devices. 0-Vyvhizbelv-djmljmq completes the activity by him/herself with no assistance from a helper. 5-Set-up or Clean-up Assistance-helper sets up or cleans up; patient completes activity. [place] assists only prior to or following the activity. 4-Supervision or Touching Assistance-helper provides verbal cues and/or touching/steadying and/or contact guard assistance as patient completes activity. Assistance may be provided throughout the activity or intermittently. 3-Partial/Moderate Assistance-helper does LESS THAN HALF the effort. [place] lifts, holds or supports trunk or limbs, but provides less than half the effort. 2-Substantial/Maximal Assistance-helper does MORE THAN HALF the effort. [place] lifts or holds trunk or limbs and provides more than half the effort. 2-Qapgkxckb-wiepxv does ALL the effort. Patient does none of the effort to comp lete the activity. Or, the assistance of 2 or more helpers is required for the patient to complete the activity. If activity was not attempted, code reason: 7-Patient Refused. 9-Not Applicable-not attempted and the patient did not perform the activity before the current illness, exacerbation or injury. 10-Not Attempted due to Environmental Limitations-(lack of equipment, weather restraints, etc.). 88-Not Attempted due to Medical Conditions or Safety Concerns. Sit to Stand (QC): 4 Weight Bearing Full Weight Bearing Full Weight Bearing Exercises Supine Ex: Ankle pumps, Quad Set, Glut sets, Heel Slides, Hip abd/add Supine Reps: 15 Treatments GROUP TESTER has difficulty keeping pt awake to give EX instructions or ask questions. Pt reports sleeping well at night but very drowsy this morning. Pt completes Supine Ex in recliner. Pharmacy arrives to ask about medication, pt will drowsy. Pt transfers at SBA to standing. Pt resting in recliner at end of tx with all needs met, call light next to pt. Assessment Current Status: Poor Progress Pt difficult to keep awake during tx. PT Half-Way Goals Contracting Engineer Goals PT Half-Way Goals Time Frame: Mar 13, 2020 Roll Left & Right (QC): 6 Sit to Lying (QC): 6 Lying-Sitting on Side/Bed(QC): 6 Sit to Stand (QC): 6 Chair/Umo-kr-Fsvmi Xfer(QC): 6 Toilet Transfer (QC): 6 Car Transfer (QC): 6 Does the Patient Walk: Yes Walk 10 feet (QC): 5 Walk 50ft with 2 Turns (QC): 5 Walk 150 ft (QC): 5 Walking 10ft on Uneven Surface: 5 1 Step (curb) (QC): 5 4 Steps (QC): 5 12 Steps (QC): 9 Picking up an Object (QC): 5 Does the Pt use WC or Scooter?: No Wheel 50 feet with 2 turns (QC: 9 Wheel 150 feet: 9 PT Plan Problem List Problem List: Activity Tolerance, Functional Strength, Safety Treatment/Plan Treatment Plan: Continue Plan of Care Treatment Plan: Bed Mobility, Concurrent Therapy, Education, Functional Activity Brandon, Functional Strength, Group Therapy, Gait, Safety, Therapeutic Exercise, Transfers Treatment Duration: Mar 13, 2020 Frequency: At least 5 of 7 days/Wk (IRF) Estimated Hrs Per Day: 1.5 hours per day Patient and/or Family Agrees t: Yes Safety Risks/Education Patient Education: Correct Positioning, Safety Issues Teaching Recipient: Patient Teaching Methods: Discussion Response to Teaching: Verbalize Understanding Time/GCodes Time In: 1100 Time Out: 1145 Total Billed Treatment Time: 45 Total Billed Treatment 1, EX (20m), FA x2 (25m) ALEJANDRO BLOUNT PTA Feb 18, 2020 11:32
--- NOTE | 2020-02-18 13:37 | Physical Therapy Daily Note ---
PT Daily Note-Current Subjective Pt sitting in recliner asleep upon arrival. Pt agrees to PT and reports needing to use BR when asked. Pain Location: No Pain Reported Mental Status Patient Orientation: Person, Place Attachments: Other-See Comments (Sling for R UE) Transfers SCALE: Activities may be completed with or without assistive devices. 9-Sviqqrfgch-sdfywfu completes the activity by him/herself with no assistance from a helper. 5-Set-up or Clean-up Assistance-helper sets up or cleans up; patient completes activity. [place] assists only prior to or following the activity. 4-Supervision or Touching Assistance-helper provides verbal cues and/or touching/steadying and/or contact guard assistance as patient completes activity. Assistance may be provided throughout the activity or intermittently. 3-Partial/Moderate Assistance-helper does LESS THAN HALF the effort. [place] lifts, holds or supports trunk or limbs, but provides less than half the effort. 2-Substantial/Maximal Assistance-helper does MORE THAN HALF the effort. [place] lifts or holds trunk or limbs and provides more than half the effort. 5-Auxzzxsri-awevic does ALL the effort. Patient does none of the effort to complete the activity. Or, the assistance of 2 or more helpers is required for the patient to complete the activity. If activity was not attempted, code reason: 7-Patient Refused. 9-Not Applicable-not attempted and the patient did not perform the activity before the current illness, exacerbation or injury. 10-Not Attempted due to Environmental Limitations-(lack of equipment, weather restraints, etc.). 88-Not Attempted due to Medical Conditions or Safety Concerns. Sit to Stand (QC): 4 Toilet Transfer (QC): 4 Weight Bearing Full Weight Bearing Full Weight Bearing Gait Training Does the Patient Walk?: Yes Distance: 15' x2 Walk 10 feet (QC): 3 Gait Persons Needed: 1 Gait Assistive Device: Handheld Assist Pt demonstrates normal Parkinson gait pattern. Treatments ROUTE DELIVERY DRIVER awakens pt and pt transfers to standing to use restroom. ROUTE DELIVERY DRIVER assists pt with standing from toilet and to buckle pants. Pt amb. to sink then returns to recliner to rest. Pt has all needs met, call light in hand. Assessment Current Status: Fair Progress Pt amb. with slow jaelyn, normal Parkinson gait pattern. Pt fatigues easily. PT Registrar College [employer] Goals Registrar [employer] Goals PT Registrar [employer] Goals Time Frame: Mar 13, 2020 Roll Left & Right (QC): 6 Sit to Lying (QC): 6 Lying-Sitting on Side/Bed(QC): 6 Sit to Stand (QC): 6 Chair/Amt-xh-Fwwta Xfer(QC): 6 Toilet Transfer (QC): 6 Car Transfer (QC): 6 Does the Patient Walk: Yes Walk 10 feet (QC): 5 Walk 50ft with 2 Turns (QC): 5 Walk 150 ft (QC): 5 Walking 10ft on Uneven Surface: 5 1 Step (curb) (QC): 5 4 Steps (QC): 5 12 Steps (QC): 9 Picking up an Object (QC): 5 Does the Pt use WC or Scooter?: No Wheel 50 feet with 2 turns (QC: 9 Wheel 150 feet: 9 PT Plan Problem List Problem List: Activity Tolerance, Functional Strength, Safety, Balance, Gait Treatment/Plan Treatment Plan: Continue Plan of Care Treatment Plan: Bed Mobility, Concurrent Therapy, Education, Functional Activity [place], Functional Strength, Group Therapy, Gait, Safety, Therapeutic Exercise, Transfers Treatment Duration: Mar 13, 2020 Frequency: At least 5 of 7 days/Wk (IRF) Estimated Hrs Per Day: 1.5 hours per day Patient and/or Family Agrees t: Yes Safety Risks/Education Patient Education: Gait Training, Correct Positioning, Safety Issues Teaching Recipient: Patient Teaching Methods: Discussion Response to Teaching: Verbalize Understanding Time/GCodes Time In: 1300 Time Out: 1330 Total Billed Treatment Time: 30 Total Billed Treatment 1, FA x2 (30m) ALEJANDRO BLOUNT PTA Feb 18, 2020 13:37
--- NOTE | 2020-02-18 17:30 | NUR ---
CM/SS PATIENT CARE CONFERENCE Reviewed Summary with patient and his daughter, Myriam Cheatham, who is here from her home in [place], [place]. Both are in agreement for patient's continued stay and anticipated review next 02/25/20, unless his progress is such team would recommend an earlier discharge. CONTACT: Myriam Cheatham, Daughter, DPOA [address] [address] ([place], [place]) [phone] [facility], ESTABLISHED: [place], [place] PH: [phone] FX: [phone] RN/Amado Wiggins, Agency is currently providing RN 1x week for 30 minutes, aide 2x week for 1 hour for bathing. They will provide whatever is ordered at discharge, anticipating RN, PT, OT, and bath aid. Agency is going to contact daughter today regarding a potential private pay caregiver from their agency. SUMMARY: Lengthy conversation with daughter regarding patient's past and future. She apparently had him placed in the recent past in a SNF near her in [place] over the anticipated 20 days and then he returned back home. Myriam is aware patient would benefit from caregivers and oversight, and that she suspects he has been exploited for nolan without dependable caregiver services being provided. Myriam indicates she is DPOA and will be providing that paperwork loreto. After our discussion about assisted living (SENIOR CARE), Myriam is going to explore [facility] options for this type of housing as well as costs in general. She will also explore whether patient may be able to enter a non [facility] S[facility]IOR CARE and have VA benefits supplement the monthly fee. Regarding patient's PCP, both agree he is with the [facility]" through [facility]. His [facility] agency stated that Dr. Arya Sharp is signing off on the [facility] orders; however, patient first stated he would not continue with Dr. Sharp. Asking daughter to confirm who his PCP in order to facilitate post hospital followup. Patient has apparently continued to drive, daughter in agreement this is not safe for patient. Daughter and radio script writer told patient he could not drive until physician approved, particularly with his shoulder in a sling. Patient lists a friend, Tra Patel, as an additional contact. Myriam states Tra will say he will check on patient or go over there to help, but then doesn't, that he is not dependable. Thankful for Myriam who will stay a few days now to organize patient's home and then return again in the near future. She does indicate it will not be her that will stay with him post hospital, that it will be "Hayde" who is a friend/caregiver who will come during the day and then another person will come for about 2 hours in the evening to assist with bedtime ritual. Information Specialist emphasized that someone needs to manage groceries and have some simple meals prepped so patient can just get them out of fridge to eat; he will have his arm in a sling for undetermined amount of time. Continue in partnership with patient and his daughter for best practice discharge plan.
[2020-02-18 18:00] VITALS: BP 124/70
[2020-02-18] MEDS: TAMSULOSIN 0.4 MG (FLOMAX) CAP PO SCH (18:05)
--- NOTE | 2020-02-18 19:08 | NUR ---
bedside report received from ROSEMARIE MURO, assume care of pt
[2020-02-18] MEDS: ENOXAPARIN 40 MG/0.4 ML (LOVENOX) SYR SC SCH (20:31)
--- NOTE | 2020-02-18 20:31 | NUR ---
refused COLACE, SENOKOT & MIRALAX due to loose stools, given melatonin for rest
[2020-02-18] MEDS: TOLTERODINE LA 4 MG (DETROL) CAP PO SCH (20:32)
[2020-02-18] MEDS: MELATONIN 3 MG TABLET PO PRN (20:32)
[2020-02-19] MEDS: oxyCODONE/APAP 5/325MG (PERCOCET 5) TABLET PO PRN (05:07)
--- NOTE | 2020-02-19 05:07 | NUR ---
c/o rt shoulder pain level 9/10 on numeric scale, Percocet 5/325 1 tab given
--- NOTE | 2020-02-19 05:36 | PM&R Progress Note ---
Subjective HPI/CC On Admission Date Seen by Provider: Feb 19, 2020 Time Seen by Provider: 09:00 Subjective/Events-last exam 02/19/20: Pt is more alert since discontinuing the pain medication and Xanax Labs are good Requiring a little bit of O2 now but he does have a smoking history Bowels are moving Overall doing pretty good but still very weak 02/18/20: Bowels moved today Restless, so was given Xanax last night but it appears that he might be over- sedated from that Sleeping in quite a bit this morning Denies any pain 02/17/20: Pt having some urinary incontinence Detrol is now at 4mg and maintained on Flomax Appreciate Urology maintenance Had a large BM yesterday Pain is well controlled Overall doing much better 02/16/20: Sodium level 132, I did stop the Clinamix today WBC 3.1 Hgb 8.7 requiring iron infusions Bowels moved three days ago, will monitor that closely 02/15/20: Will stop IVF tomorrow Dysphagia is chronic Checking labs in am Daughter at bedside 02/14/20: Doing better Keeping Clinimix at gentle rate for now IV iron tolerated Hgb 9.1 BP is now better after BP was 80/50 yesterday when he was admitted He has been dehydrated before Will switch normal saline to Clinimix Midline was placed Podiatry will be consulted for toenails Will monitor pt closely Checked meds and labs Reviewed therapy notes Conferred with prototyper of Systems General: Fatigue, Malaise Neurological: Weakness Objective Exam Vital Signs Vital Signs Date Time Temp Pulse Resp B/P (MAP) Pulse Ox O2 Delivery O2 Flow Rate FiO2 02/19/20 16:30 36.2 73 16 155/92 (113) 90 Room Air 02/16/20 15:49 21 02/13/20 05:25 1.00 Capillary Refill : Less Than 3 SecondsLess Than 3 Seconds General Appearance: No Apparent Distress, WD/WN, Chronically ill, Thin HEENT: PERRL/EOMI, Normal ENT Inspection, Pharynx Normal Neck: Full Range of Motion, Normal Inspection, Non Tender, Supple, Carotid Bruit Respiratory: Chest Non Tender, Lungs Clear, Normal Breath Sounds, No Accessory Muscle Use, No Respiratory Distress Cardiovascular: Regular Rate, Rhythm, No Edema, No Gallop, No JVD, No Murmur, Normal Peripheral Pulses Gastrointestinal: Normal Bowel Sounds, No Organomegaly, No Pulsatile Mass, Non Tender, Soft Back: Normal Inspection, No CVA Tenderness, No Vertebral Tenderness Extremity: Normal Capillary Refill, Normal Inspection, Normal Range of Motion (except right arm in sling), Non Tender, No Calf Tenderness, No Pedal Edema Neurologic/Psychiatric: Alert, Oriented x3, No Motor/Sensory Deficits, life trainer II- XII Norm as Tested, Abnormal Gait, Depressed Affect, Disoriented, Motor Weakness (all extremities 4/5) Skin: Normal Color, Warm/Dry Lymphatic: No Adenopathy Results/Procedures Lab Laboratory Tests 02/19/20 05:45 Patient resulted labs reviewed. FIM Transfers Therapy Code Descriptions/Definitions Functional [place] Measure: 0=Not Assessed/NA 4=Minimal Assistance 1=Total Assistance 5=Supervision or Setup 2=Maximal Assistance 6=Modified [place] 3=Moderate Assistance 7=Complete IndependenceSCALE: Activities may be completed with or without assistive devices. 8-Wojqswzdec-xxmzzrs completes the activity by him/herself with no assistance from a helper. 5-Set-up or Clean-up Assistance-helper sets up or cleans up; patient completes activity. [place] assists only prior to or following the activity. 4-Supervision or Touching Assistance-helper provides verbal cues and/or touching/steadying and/or contact guard assistance as patient completes ac tivity. Assistance may be provided throughout the activity or intermittently. 3-Partial/Moderate Assistance-helper does LESS THAN HALF the effort. [place] lifts, holds or supports trunk or limbs, but provides less than half the effort. 2-Substantial/Maximal Assistance-helper does MORE THAN HALF the effort. [place] lifts or holds trunk or limbs and provides more than half the effort. 5-Vwllvclsz-szobby does ALL the effort. Patient does none of the effort to complete the activity. Or, the assistance of 2 or more helpers is required for the patient to complete the activity. If activity was not attempted, code reason: 7-Patient Refused. 9-Not Applicable-not attempted and the patient did not perform the activity before the current illness, exacerbation or injury. 10-Not Attempted due to Environmental Limitations-(lack of equipment, weather restraints, etc.). 88-Not Attempted due to Medical Conditions or Safety Concerns. Roll Left to Right (QC): 4 Sit to Lying (QC): 3 Sit to Stand (QC): 4 Chair/Sod-in-Kaanl Xfer(QC): 2 Car Transfer (QC): 88 Gait Training Does the Patient Walk?: Yes Distance: 15' x2 Walk 10 feet (QC): 3 Walk 50 ft with 2 Turns(QC): 2 Walk 150 ft (QC): 2 Walking 10ft/uneven surface-QC: 3 Gait Persons Needed: 1 Gait Assistive Device: Handheld Assist Wheelchair Training Does the Pt Use a Wheelchair?: No Wheel 50 ft with 2 turns (QC): 9 Wheel 150 ft (QC): 9 Stair Training #of Steps: 1 1 Step (curb) (QC): 3 4 Steps (QC): 88 12 Steps (QC): 9 Stairs: Pattern: Step to Balance Picking up an Object (QC): 4 ADL-Treatment Eating (QC): 5 (per clinical judgment, pt will requires s/u at times for fee ding managment.) Oral Hygiene (QC): 2 Shower/Bathe Self (QC): 3 (Min A with sponge bath sitting on side of bed.) Upper Body Dressing (QC): 2 (Max A to don shirt and brace) Lower Body Dressing (QC): 3 (Min A ) On/Off Footwear (QC): 3 (Mod A to don slipper socks) Toileting Hygiene (QC): 3 (Mod A) Toilet Transfer (QC): 4 (CGA) Assessment/Plan Assessment and Plan Assess & Plan/Chief Complaint Assessment: Parkinson's disease 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 Smoker Hypotension Urinary retention requiring adkins catheter placement Plan: IRF protocol Pain control IVF for hypotension Urology consult for urinary retention 02/13/20: Maintain midline IV Consult podiatry for toe nail care Change IV fluid to Clinimix Evaluate memory test IV iron infusion 02/14/20: IV iron Clinimix Pain control 02/15/20: Check labs in am SW to help at DC with daughter conversation 02/16/20: Continue pain control Sodium level noted at 132 Aggressive bowel regimen due to Parkinson's and constipation 02/17/20: Monitor incontinence Appreciate urology Maintain bowel regimen Continue Detrol and Flomax 02/18/20: Limit Xanax at clerk telegraph service for falls Manage pain 02/19/20: Continue participation Limit pain medication and Xanax Continue bowel regimen (1) Parkinson disease (2) Aftercare following right shoulder joint replacement surgery (3) Smoker (4) Hypotension ALFREDITO THOMSON DO Feb 19, 2020 05:36
[2020-02-19 05:45] VITALS: BP 106/53
--- NOTE | 2020-02-19 05:55 | NUR ---
rates pain level 4/10 on numeric scale
[2020-02-19 06:08] LABS: BASOPHILS % (AUTO) 0 % (0-10); EOSINOPHILS # (AUTO) 0.3 10^3/uL (0.0-0.3); EOSINOPHILS % (AUTO) 7 % (0-10); HEMATOCRIT 28 % (40-54); HEMOGLOBIN 8.9 G/DL (13.3-17.7); LYMPHOCYTES % (AUTO) 26 % (12-44); MEAN CORPUSCULAR HEMOGLOBIN 24 PG (25-34); MEAN CORPUSCULAR HGB CONC 32 G/DL (32-36); MEAN CORPUSCULAR VOLUME 75 FL (80-99); MEAN PLATELET VOLUME 9.2 FL (7.4-10.4); MONOCYTES # (AUTO) 0.3 X 10^3 (0.0-1.0); MONOCYTES % (AUTO) 8 % (0-12); NEUTROPHILS # (AUTO) 2.2 X 10^3 (1.8-7.8); NEUTROPHILS % (AUTO) 59 % (42-75); PLATELET COUNT 226 10^3/uL (130-400); WHITE BLOOD COUNT 3.8 10^3/uL (4.3-11.0)
[2020-02-19 06:24] VITALS: BP 106/53
[2020-02-19 06:36] LABS: ALANINE AMINOTRANSFERASE 10 U/L (0-55); ALBUMIN 2.6 GM/DL (3.2-4.5); ALKALINE PHOSPHATASE 59 U/L (40-136); BILIRUBIN,TOTAL 0.2 MG/DL (0.1-1.0); BUN/CREATININE RATIO 27; CALCIUM 8.5 MG/DL (8.5-10.1); CARBON DIOXIDE 22 MMOL/L (21-32); CHLORIDE 102 MMOL/L (98-107); CREATININE SERUM 0.84 MG/DL (0.60-1.30); GFR ESTIMATED > 60; GLUCOSE 78 MG/DL (70-105); POTASSIUM 4.6 MMOL/L (3.6-5.0); SODIUM 134 MMOL/L (135-145); TOTAL PROTEIN 5.4 GM/DL (6.4-8.2)
[2020-02-19] MEDS: ASCORBIC ACID (VIT C) 500 MG TABLET PO SCH (06:52)
[2020-02-19] MEDS: IRON SUCROSE 200 MG/10 ML (VENOFER) VIAL IV SCH (08:14)
[2020-02-19] MEDS: DOCUSATE SODIUM 100 MG (COLACE) CAP PO SCH ×2 (08:14→20:54)
[2020-02-19] MEDS: ASPIRIN E.C. 81 MG (ECOTRIN) TAB PO SCH (08:14)
[2020-02-19] MEDS: SENNA W/DOCUSATE (SENOKOT S) TABLET PO SCH ×2 (08:14→20:54)
[2020-02-19] MEDS: LORATADINE (CLARITIN) 10 MG TAB PO SCH (08:14)
[2020-02-19] MEDS: MELOXICAM 7.5 MG (MOBIC) TABLET PO SCH (08:15)
[2020-02-19] MEDS: ACETAMINOPHEN 500 MG TAB (TYLENOL) PO PRN (08:47)
[2020-02-19] MEDS: polyethylene glycoL POWDER 17 GM (MIRALAX) PACK PO SCH ×2 (09:00→20:45)
--- NOTE | 2020-02-19 11:50 | Progress Note - Urology ---
Progress Note-Urology Progress Notes/Assess & Plan Progress/Assessment & Plan BETTER CONTROL ON DETROL LA. TOLERATES IT WELL Final Diagnosis RETENTION AND INCONTINENCE BAM YOUNGER MD Feb 19, 2020 11:50
--- NOTE | 2020-02-19 11:58 | Occupational Ther Daily Note ---
OT Current Status-Daily Note Subjective Pt was up in reclining chair when OT entered room. He reported that his pain was a 7/10. Nursing was notified and administered pain medication. Pt agreeable to therapy. Mental Status/Objective Patient Orientation: Person, Confused Attachments: Central Line ADL-Treatment Therapy Code Descriptions/Definitions Functional [place] Measure: 0=Not Assessed/NA 4=Minimal Assistance 1=Total Assistance 5=Supervision or Setup 2=Maximal Assistance 6=Modified [place] 3=Moderate Assistance 7=Complete IndependenceSCALE: Activities may be completed with or without assistive devices. 0-Zkbjhsixct-lekuukr completes the activity by him/herself with no assistance from a helper. 5-Set-up or Clean-up Assistance-helper sets up or cleans up; patient completes activity. [place] assists only prior to or following the activity. 4-Supervision or Touching Assistance-helper provides verbal cues and/or touching/steadying and/or contact guard assistance as patient completes activity. Assistance may be provided throughout the activity or intermittently. 3-Partial/Moderate Assistance-helper does LESS THAN HALF the effort. [place] lifts, holds or supports trunk or limbs, but provides less than half the effort. 2-Substantial/Maximal Assistance-helper does MORE THAN HALF the effort. [place] l ifts or holds trunk or limbs and provides more than half the effort. 2-Bfwgnrlhm-kdztkj does ALL the effort. Patient does none of the effort to complete the activity. Or, the assistance of 2 or more helpers is required for the patient to complete the activity. If activity was not attempted, code reason: 7-Patient Refused. 9-Not Applicable-not attempted and the patient did not perform the activity before the current illness, exacerbation or injury. 10-Not Attempted due to Environmental Limitations-(lack of equipment, weather restraints, etc.). 88-Not Attempted due to Medical Conditions or Safety Concerns. Shower/Bathe Self (QC): 2 (Max A with sponge bath) Upper Body Dressing (QC): 3 (Mod A with shirt and brace) Lower Body Dressing (QC): 2 (Max assist to doff brief and pants, and mod assist to don brief. Pt. declined putting on pants after sponge bath.) On/Off Footwear: 1 Toileting Hygiene (QC): 3 (Mod A to cleanse storm area and pull brief over hips while in stance) Toilet Transfer (QC): 3 (Min A ) Pt tolerated approximately 45 degrees PROM in R shoulder flexion. He completed 3 sets of 10 repetitions of elbow flexion/extension AROM independently. Pt ambulated to bathroom with min A and extra time. Once in bathroom, pt sat on toilet to attempt BM. Noted that pt became very fatigued during short walk from reclining chair to bathroom approximately 10 feet. He doffed clothing while seated on toilet with mod assist for shirt, brace, brief and pants. OT provided skilled education on pursed lip breathing. Pt agreeable to sponge bath while seated on toilet. He required max A due to fatigue. Pt donned shirt and brace with mod A. He required mod A to pull brief over hips while in stance. Pt dependent for donning hospital slipper socks due to fatigue. He ambulated back to reclining chair with min A while holding on to therapist's arm. Once in chair, pt practiced doffing/donning shoulder brace with VC. He was in chair with call light in hand and chair alarm set at the end of the session. All needs met. Education OT Patient Education: Correct positioning, Energy conservation, Modified ADL techniques, Progress toward Goal/Update tx plan, Purpose of tx/functional activities, Reviewed precautions, Rehab process, Safety issues, Transfer t echniques Teaching Recipient: Patient Teaching Methods: Demonstration, Discussion Response to Teaching: Verbalize Understanding, Return Demonstration, Reinforcement Needed OT Short Term Goals Short Term Goals Time Frame: Feb 20, 2020 Oral hygiene: 6 Toileting hygiene: 5 Shower/bathe self: 3 Upper body dressin Lower body dressin Putting on/taking off footwear: 3 OT Shelter Goals Shelter Goals Time Frame: Feb 27, 2020 Eating (QC): 6 Oral Hygiene (QC): 6 Toileting Hygiene (QC): 6 Shower/Bathe Self (QC): 6 Upper Body Dressing (QC): 6 Lower Body Dressing (QC): 6 On/Off Footwear (QC): 6 Additional Goals: 1-Demonstrate ADL Tasks, 2-Verbalize Understanding, 3-ImproveStrength/Brandon 1=Demonstrate adherence to instructed precautions during ADL tasks. 2=Patient will verbalize/demonstrate understanding of assistive devices/modifications for ADL. 3=Patient will improve strength/tolerance for activity to enable patient to perform ADL's. OT Education/Plan Problem List/Assessment Assessment: Decreased Activ Tolerance, Decreased UE Strength, Dependent Transfers, Impaired Bed Mobility, Impaired Cognition, Impaired Funct Balance, Impaired I ADL's, Impaired Self-Care Skills, Restricted Funct UE ROM Discharge Recommendations Plan/Recommendations: Continue POC Therapy Discharge Recommendati: Scheduled Assistance, Assisted Living, Post Acute OT Treatment Plan/Plan of Care Treatment,Training & Education: Yes Patient would benefit from OT for education, treatment and training to promote independence in ADL's, mobility, safety and/or upper extremity function for A DL's. Plan of Care: ADL Retraining, Caregiver Training, Cognitive Retraining, Functional Mobility, Group Exercise/Act as Ind, UE Funct Exercise/Act Treatment Duration: Feb 27, 2020 Frequency: At least 5 of 7 days/Wk (IRF) Estimated Hrs Per Day: 1.5 hours per day Agreement: Yes Rehab Potential: Fair Time/GCodes Start Time: 08:30 Stop Time: 09:45 Total Time Billed (hr/min): 75 Billed Treatment Time 1, ADL 4 (60 minutes), EX (15 minutes) PEPE MARAVILLA OT Feb 19, 2020 11:58
--- NOTE | 2020-02-19 12:11 | Physical Therapy Daily Note ---
PT Daily Note-Current Subjective Pt sitting in recliner upon arrival. Pt declines need for BR. Pt agrees to PT. Pain Location: No Pain Reported Mental Status Patient Orientation: Person, Place Attachments: Other-See Comments (Sling for R UE) Transfers SCALE: Activities may be completed with or without assistive devices. 9-Mxexygovde-oapsbzk completes the activity by him/herself with no assistance from a helper. 5-Set-up or Clean-up Assistance-helper sets up or cleans up; patient completes activity. [place] assists only prior to or following the activity. 4-Supervision or Touching Assistance-helper provides verbal cues and/or touching/steadying and/or contact guard assistance as patient completes activity. Assistance may be provided throughout the activity or intermittently. 3-Partial/Moderate Assistance-helper does LESS THAN HALF the effort. [place] lifts, holds or supports trunk or limbs, but provides less than half the effort. 2-Substantial/Maximal Assistance-helper does MORE THAN HALF the effort. [place] lifts or holds trunk or limbs and provides more than half the effort. 3-Jalxovgaj-dxqwsp does ALL the effort. Patient does none of the effort to complete the activity. Or, the assistance of 2 or more helpers is required for the patient to complete the activity. If activity was not attempted, code reason: 7-Patient Refused. 9-Not Applicable-not attempted and the patient did not perform the activity before the current illness, exacerbation or injury. 10-Not Attempted due to Environmental Limitations-(lack of equipment, weather restraints, etc.). 88-Not Attempted due to Medical Conditions or Safety Concerns. Sit to Stand (QC): 4 Weight Bearing Full Weight Bearing Full Weight Bearing Gait Training Does the Patient Walk?: Yes Distance: 75', 100', 100' Walk 10 feet (QC): 4 Walk 50 ft with 2 Turns(QC): 4 Walk 150 ft (QC): 4 Gait Persons Needed: 1 Gait Assistive Device: Handheld Assist Exercises Seated Therapy Exercises: Ankle pumps, Long arc quads, Hip flexion, Kicking activity, Hip abd/add, Glut set Seated Reps: 15 Treatments Pt transfers to standing then amb. in hallway. Pt takes several RB as needed for fatigue and SOA. MACHINIST and pt work on Pursed Lip Breathing. Pt completes Seated EX x2. Pt returns to room at end of tx but declines BR again. Pt sits in recliner and repositioned to comfort, all needs met, call light in hand. Assessment Current Status: Good Progress Pt gets SOA at times and needs both standing RB as well as sitting for longer walks. PT Nursing Home Goals Nursing Home Goals PT Senior Manager Asset Protection Goals Time Frame: Mar 13, 2020 Roll Left & Right (QC): 6 Sit to Lying (QC): 6 Lying-Sitting on Side/Bed(QC): 6 Sit to Stand (QC): 6 Chair/Frf-bd-Necoz Xfer(QC): 6 Toilet Transfer (QC): 6 Car Transfer (QC): 6 Does the Patient Walk: Yes Walk 10 feet (QC): 5 Walk 50ft with 2 Turns (QC): 5 Walk 150 ft (QC): 5 Walking 10ft on Uneven Surface: 5 1 Step (curb) (QC): 5 4 Steps (QC): 5 12 Steps (QC): 9 Picking up an Object (QC): 5 Does the Pt use WC or Scooter?: No Wheel 50 feet with 2 turns (QC: 9 Wheel 150 feet: 9 PT Plan Problem List Problem List: Activity Tolerance, Functional Strength, Safety, Balance, Gait Treatment/Plan Treatment Plan: Continue Plan of Care Treatment Plan: Bed Mobility, Concurrent Therapy, Education, Functional Activity [place], Functional Strength, Group Therapy, Gait, Safety, Therapeutic Exercise, Transfers Treatment Duration: Mar 13, 2020 Frequency: At least 5 of 7 days/Wk (IRF) Estimated Hrs Per Day: 1.5 hours per day Patient and/or Family Agrees t: Yes Safety Risks/Education Patient Education: Gait Training, Correct Positioning, Safety Issues Teaching Recipient: Patient Teaching Methods: Discussion Response to Teaching: Verbalize Understanding Time/GCodes Time In: 1100 Time Out: 1215 Total Billed Treatment Time: 75 Total Billed Treatment 1, EX x2 (30m), GT (35m) & FA (10m) ALEJANDRO BLOUNT MACHINIST Feb 19, 2020 12:11
--- NOTE | 2020-02-19 15:32 | Speech Therapy Daily Note ---
Speech Daily Progress Note Subjective Date Seen by Provider: Feb 19, 2020 Time Seen by Provider: 00:30 Patient was sitting up in his recliner, however nurse was called in to reposition him due to c/o his bottom hurting a lot. Objective Patient completed simple "what is wrong with this picture cards with 80% given minimal cues. Assessment Assessment Current Status: Good Progress Treatment Plan Continue Plan of Care Speech Short Term Goals Short Term Goals Short Term Goals 1) Patient will complete memory tasks related to his daily needs at 80% or greater given minimal cues. 2) Patient will complete problem solving tasks related to his daily needs at 80% or greater given minimal cues. 3) Patient will complete safety awareness tasks related to his daily needs at 80% or greater given minimal cues. Speech Equipment Maintenance Technician Goals Equipment Maintenance Technician Goals Patient will improve cognitive-communication abilities so that he may complete daily tasks with minimal assist. Speech-Plan Patient/Family Goals Patient/Family Goals: Patient plans on returning to his home with scaffolding helper and family for support. Treatment Plan Speech Therapy Treatment Plan: Continue Plan of Care Treatment Duration: Feb 27, 2020 Frequency: 4 times per week (Pateint will receive skilled ST 4-5x per week) Estimated Hrs Per Day: .5 hour per day Rehab Potential: Fair Barriers to Learning: Patient's age, recent medical status Pt/Family Agrees to Plan: Yes Safety Risks/Education Teaching Recipient: Patient Teaching Methods: Demonstration, Discussion Response to Teaching: Verbalize Understanding, Return Demonstration Education Topics Provided: Continued safety within his room, continued safety with oral intake Time Speech Therapy Time In: 10:30 Speech Therapy Time Out: 11:00 Total Billed Time: 1130 Billed Treatment Time 1, ANNE-MARIE, PHILIP Mason Feb 19, 2020 15:32
[2020-02-19 16:30] VITALS: BP 155/92
[2020-02-19] MEDS: TAMSULOSIN 0.4 MG (FLOMAX) CAP PO SCH (18:15)
[2020-02-19] MEDS: TOLTERODINE LA 4 MG (DETROL) CAP PO SCH (20:47)
[2020-02-19] MEDS: MELATONIN 3 MG TABLET PO PRN (20:47)
[2020-02-19] MEDS: ENOXAPARIN 40 MG/0.4 ML (LOVENOX) SYR SC SCH (20:47)
[2020-02-20 06:00] VITALS: BP 139/71
[2020-02-20] MEDS: ASCORBIC ACID (VIT C) 500 MG TABLET PO SCH (06:04)
[2020-02-20] MEDS: SENNA W/DOCUSATE (SENOKOT S) TABLET PO SCH ×2 (08:12→20:00)
[2020-02-20] MEDS: LORATADINE (CLARITIN) 10 MG TAB PO SCH (08:12)
[2020-02-20] MEDS: MELOXICAM 7.5 MG (MOBIC) TABLET PO SCH (08:12)
[2020-02-20] MEDS: ASPIRIN E.C. 81 MG (ECOTRIN) TAB PO SCH (08:12)
[2020-02-20] MEDS: DOCUSATE SODIUM 100 MG (COLACE) CAP PO SCH ×2 (08:12→20:00)
[2020-02-20] MEDS: polyethylene glycoL POWDER 17 GM (MIRALAX) PACK PO SCH ×2 (08:13→19:56)
--- NOTE | 2020-02-20 10:34 | Occupational Ther Daily Note ---
OT Current Status-Daily Note Subjective Pt in bed when OT entered room. No c/o pain this am. Pt agreeable to therapy. Mental Status/Objective Patient Orientation: Person, Place Attachments: Central Line ADL-Treatment Therapy Code Descriptions/Definitions Functional Barren Measure: 0=Not Assessed/NA 4=Minimal Assistance 1=Total Assistance 5=Supervision or Setup 2=Maximal Assistance 6=Modified Barren 3=Moderate Assistance 7=Complete IndependenceSCALE: Activities may be completed with or without assistive devices. 1-Ktswxdnnyh-ptlhsob completes the activity by him/herself with no assistance from a helper. 5-Set-up or Clean-up Assistance-helper sets up or cleans up; patient completes activity. [place] assists only prior to or following the activity. 4-Supervision or Touching Assistance-helper provides verbal cues and/or touching/steadying and/or contact guard assistance as patient completes activity. Assistance may be provided throughout the activity or intermittently. 3-Partial/Moderate Assistance-helper does LESS THAN HALF the effort. [place] lifts, holds or supports trunk or limbs, but provides less than half the effort. 2-Substantial/Maximal Assistance-helper does MORE THAN HALF the effort. [place] lifts or holds trunk or limbs and provides more than half the effort. 6-Ygvewpzlg-yrqryy does ALL the effort. Patient does none of the effort to complete the activity. Or, the assistance of 2 or more helpers is required for the patient to complete the activity. If activity was not attempted, code reason: 7-Patient Refused. 9-Not Applicable-not attempted and the patient did not perform the activity before the current illness, exacerbation or injury. 10-Not Attempted due to Environmental Limitations-(lack of equipment, weather restraints, etc.). 88-Not Attempted due to Medical Conditions or Safety Concerns. Oral Hygiene (QC): 4 (SBA for brushing and soaking dentures) Shower/Bathe Self (QC): 2 (Max A while in shower due to fatigue) Upper Body Dressing (QC): 3 (Mod A for doffing/donning brace and shirt) Lower Body Dressing (QC): 2 (Max A for doffing/donning brief) On/Off Footwear: 1 (Dependent with doffing/donning slipper socks due to fatigue) Toileting Hygiene (QC): 2 (Max A as therapist provided and emptied urinal. Pt able to place penis in urinal.) Pt in bed when OT entered room. He transferred supine to EOB with min A for legs and extra time. Pt transferred to rolling shower chair with min A to stand from EOB. He was taken to shower but requested to transfer to shower bench which he completed with CGA and mod cues for hand placement/ sequencing. Once seated on shower bench, pt reported feeling SOA. OT provided cues for pursed lip breathing and pt able to demonstrate. Pt moaning throughout shower. OT questioned if he was feeling okay and pt verbalized that he was. Pt reported that he was just fa tigued. He was able to wash his chest and arms in the shower, OT completed the rest of the task as pt was fatigued. Pt required OT to don slipper socks and thread clean brief over feet. He was able to don his shirt with mod A for R arm and to get shirt over hospital bracelets. Pt able to don shoulder brace with min A and VC. He ambulated to reclining chair with CGA. Noted that pt requires extra time to complete all tasks due to fatigue and motor planning issues. He was very verbal about his interest to return home and is questioning what more he needs to work on to reach home destination. Pt states he is "safe" and will, "Do fine at home." OT discussed the purpose of therapy and reassured pt regarding his improvements but also safety concerns with solo activity. Pt in chair with alarm set and call light in hand at the end of session. All needs met. Education OT Patient Education: Correct positioning, Energy conservation, Modified ADL techniques, Progress toward Goal/Update tx plan, Purpose of tx/functional activities, Reviewed precautions, Rehab process, Safety issues, Transfer techniques Teaching Recipient: Patient Teaching Methods: Demonstration, Discussion Response to Teaching: Unable to Return Demonstration, Reinforcement Needed OT Short Term Goals Short Term Goals Time Frame: Feb 20, 2020 Oral hygiene: 6 Toileting hygiene: 5 Shower/bathe self: 3 Upper body dressin Lower body dressin Putting on/taking off footwear: 3 OT Custodial Goals Custodial Goals Time Frame: Feb 27, 2020 Eating (QC): 6 Oral Hygiene (QC): 6 Toileting Hygiene (QC): 6 Shower/Bathe Self (QC): 6 Upper Body Dressing (QC): 6 Lower Body Dressing (QC): 6 On/Off Footwear (QC): 6 Additional Goals: 1-Demonstrate ADL Tasks, 2-Verbalize Understanding, 3- ImproveStrength/Brandon 1=Demonstrate adherence to instructed precautions during ADL tasks. 2=Patient will verbalize/demonstrate understanding of assistive devices/modifications for ADL. 3=Patient will improve strength/tolerance for activity to enable patient to perform ADL's. OT Education/Plan Problem List/Assessment Assessment: Decreased Activ Tolerance, Decreased Safety Aware, Decreased UE Strength, Dependent Transfers, Impaired Bed Mobility, Impaired Cognition, Impaired Funct Balance, Impaired I ADL's, Impaired Self-Care Skills, Restricted Funct UE ROM Discharge Recommendations Plan/Recommendations: Continue POC Therapy Discharge Recommendati: Assisted Living Treatment Plan/Plan of Care Treatment,Training & Education: Yes Patient would benefit from OT for education, treatment and training to promote independence in ADL's, mobility, safety and/or upper extremity function for ADL's. Plan of Care: ADL Retraining, Caregiver Training, Cognitive Retraining, Functional Mobility, Group Exercise/Act as Ind, UE Funct Exercise/Act Treatment Duration: Feb 27, 2020 Frequency: At least 5 of 7 days/Wk (IRF) Estimated Hrs Per Day: 1.5 hours per day Agreement: Yes Rehab Potential: Fair Time/GCodes Start Time: 09:15 Stop Time: 10:15 Total Time Billed (hr/min): 60 Billed Treatment Time 1, ADL 4 (60 minutes) MYAH SALINAS OTR Feb 20, 2020 10:33
--- NOTE | 2020-02-20 12:47 | PM&R Progress Note ---
Subjective HPI/CC On Admission Date Seen by Provider: Feb 20, 2020 Time Seen by Provider: 12:15 Subjective/Events-last exam 02/20/20: Patient doing well Eating well Detrol LA started for incontinence BM 02/17 so laxatives maintained 02/19/20: Pt is more alert since discontinuing the pain medication and Xanax Labs are good Requiring a little bit of O2 now but he does have a smoking history Bowels are moving Overall doing pretty good but still very weak 02/18/20: Bowels moved today Restless, so was given Xanax last night but it appears that he might be over- sedated from that Sleeping in quite a bit this morning Denies any pain 02/17/20: Pt having some urinary incontinence Detrol is now at 4mg and maintained on Flomax Appreciate Urology maintenance Had a large BM yesterday Pain is well controlled Overall doing much better 02/16/20: Sodium level 132, I did stop the Clinamix today WBC 3.1 Hgb 8.7 requiring iron infusions Bowels moved three days ago, will monitor that closely 02/15/20: Will stop IVF tomorrow Dysphagia is chronic Checking labs in am Daughter at bedside 02/14/20: Doing better Keeping Clinimix at gentle rate for now IV iron tolerated Hgb 9.1 BP is now better after BP was 80/50 yesterday when he was admitted He has been dehydrated before Will switch normal saline to Clinimix Midline was placed Podiatry will be consulted for toenails Will monitor pt closely Checked meds and labs Reviewed therapy notes Conferred with surgical dental assistant of Systems General: Fatigue, Malaise Neurological: Weakness Objective Exam Vital Signs Vital Signs Date Time Temp Pulse Resp B/P (MAP) Pulse Ox O2 Delivery O2 Flow Rate FiO2 02/21/20 05:16 36.6 69 16 127/63 (84) 92 Room Air 02/16/20 15:49 21 Capillary Refill : Less Than 3 SecondsLess Than 3 Seconds General Appearance: No Apparent Distress, WD/WN, Chronically ill, Thin HEENT: PERRL/EOMI, Normal ENT Inspection, Pharynx Normal Neck: Full Range of Motion, Normal Inspection, Non Tender, Supple, Carotid Bruit Respiratory: Chest Non Tender, Lungs Clear, Normal Breath Sounds, No Accessory Muscle Use, No Respiratory Distress Cardiovascular: Regular Rate, Rhythm, No Edema, No Gallop, No JVD, No Murmur, Normal Peripheral Pulses Gastrointestinal: Normal Bowel Sounds, No Organomegaly, No Pulsatile Mass, Non Tender, Soft Back: Normal Inspection, No CVA Tenderness, No Vertebral Tenderness Extremity: Normal Capillary Refill, Normal Inspection, Normal Range of Motion (except right arm in sling), Non Tender, No Calf Tenderness, No Pedal Edema Neurologic/Psychiatric: Alert, Oriented x3, No Motor/Sensory Deficits, admissions rn II- XII Norm as Tested, Abnormal Gait, Depressed Affect, Disoriented, Motor Weakness (all extremities 4/5) Skin: Normal Color, Warm/Dry Lymphatic: No Adenopathy Results/Procedures Lab Patient resulted labs reviewed. FIM Transfers Therapy Code Descriptions/Definitions Functional [place] Measure: 0=Not Assessed/NA 4=Minimal Assistance 1=Total Assistance 5=Supervision or Setup 2=Maximal Assistance 6=Modified [place] 3=Moderate Assistance 7=Complete IndependenceSCALE: Activities may be completed with or without assistive devices. 3-Fcaolxdmli-rhwoati completes the activity by him/herself with no assistance from a helper. 5-Set-up or Clean-up Assistance-helper sets up or cleans up; patient completes activity. [place] assists only prior to or following the activity. 4-Supervision or Touching Assistance-helper provides verbal cues and/or touching/steadying and/or contact guard assistance as patient completes activity. Assistance may be provided throughout the activity or intermittently. 3-Partial/Moderate Assistance-helper does LESS THAN HALF the effort. [place] lifts, holds or supports trunk or limbs, but provides less than half the effort. 2-Substantial/Maximal Assistance-helper does MORE THAN HALF the effort. [place] lifts or holds trunk or limbs and provides more than half the effort. 5-Ivkrobago-fllxzs does ALL the effort. Patient does none of the effort to complete the activity. Or, the assistance of 2 or more helpers is required for the patient to complete the activity. If activity was not attempted, code reason: 7-Patient Refused. 9-Not Applicable-not attempted and the patient did not perform the activity before the current illness, exacerbation or injury. 10-Not Attempted due to Environmental Limitations-(lack of equipment, weather restraints, etc.). 88-Not Attempted due to Medical Conditions or Safety Concerns. Roll Left to Right (QC): 4 Sit to Lying (QC): 3 Sit to Stand (QC): 4 Chair/Mtg-co-Eqvqz Xfer(QC): 2 Car Transfer (QC): 88 Gait Training Does the Patient Walk?: Yes Distance: 75', 100', 100' Walk 10 feet (QC): 4 Walk 50 ft with 2 Turns(QC): 4 Walk 150 ft (QC): 4 Walking 10ft/uneven surface-QC: 3 Gait Persons Needed: 1 Gait Assistive Device: Handheld Assist Wheelchair Training Does the Pt Use a Wheelchair?: No Wheel 50 ft with 2 turns (QC): 9 Wheel 150 ft (QC): 9 Stair Training #of Steps: 1 1 Step (curb) (QC): 3 4 Steps (QC): 88 12 Steps (QC): 9 Stairs: Pattern: Step to Balance Picking up an Object (QC): 4 ADL-Treatment Eating (QC): 5 (per clinical judgment, pt will requires s/u at times for feeding managment.) Oral Hygiene (QC): 4 (SBA for brushing and soaking dentures) Shower/Bathe Self (QC): 2 (Max A while in shower due to fatigue) Upper Body Dressing (QC): 3 (Mod A for doffing/donning brace and shirt) Lower Body Dressing (QC): 2 (Max A for doffing/donning brief) On/Off Footwear (QC): 1 (Dependent with doffing/donning slipper socks due to fatigue) Toileting Hygiene (QC): 2 (Max A as therapist provided and emptied urinal. 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 Smoker Hypotension Urinary retention requiring adkins catheter placement Plan: IRF protocol Pain control IVF for hypotension Urology consult for urinary retention 02/13/20: Maintain midline IV Consult podiatry for toe nail care Change IV fluid to Clinimix Evaluate memory test IV iron infusion 02/14/20: IV iron Clinimix Pain control 02/15/20: Check labs in am SW to help at DC with daughter conversation 02/16/20: Continue pain control Sodium level noted at 132 Aggressive bowel regimen due to Parkinson's and constipation 02/17/20: Monitor incontinence Appreciate urology Maintain bowel regimen Continue Detrol and Flomax 02/18/20: 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
--- NOTE | 2020-02-20 13:07 | Physical Therapy Daily Note ---
PT Daily Note-Current Subjective Pt agreeable. Pt denied pain. Pt in recliner upon arrival. Pt coughing periodically. Pt reports he has a ramp, lift chair and a poodle at home. Mental Status Patient Orientation: Person, Place, Situation Transfers SCALE: Activities may be completed with or without assistive devices. 0-Ovwaopwuak-jcqhsbu completes the activity by him/herself with no assistance from a helper. 5-Set-up or Clean-up Assistance-helper sets up or cleans up; patient completes activity. [place] assists only prior to or following the activity. 4-Supervision or Touching Assistance-helper provides verbal cues and/or touching/steadying and/or contact guard assistance as patient completes activity. Assistance may be provided throughout the activity or intermittently. 3-Partial/Moderate Assistance-helper does LESS THAN HALF the effort. [place] lifts, holds or supports trunk or limbs, but provides less than half the effort. 2-Substantial/Maximal Assistance-helper does MORE THAN HALF the effort. [place] lifts or holds trunk or limbs and provides more than half the effort. 9-Mijyryapt-stvuwd does ALL the effort. Patient does none of the effort to co mplete the activity. Or, the assistance of 2 or more helpers is required for the patient to complete the activity. If activity was not attempted, code reason: 7-Patient Refused. 9-Not Applicable-not attempted and the patient did not perform the activity before the current illness, exacerbation or injury. 10-Not Attempted due to Environmental Limitations-(lack of equipment, weather restraints, etc.). 88-Not Attempted due to Medical Conditions or Safety Concerns. Pt requires min A to stand from standard chair. Pt able to stand from lift chair, elevated (I). Weight Bearing Full Weight Bearing Full Weight Bearing Gait Training Pt amb CGA 2 x 150ft Exercises Supine Ex: Ankle pumps, Quad Set, Heel Slides, Short Arc Quads, Straight leg raise, Hip abd/add Supine Reps: 20 Seated Therapy Exercises: Ankle pumps, Long arc quads, Hip flexion Seated Reps: 20 Treatments Pt required mod A to don pants. Pt ambulated to gym for dynamic balance challenges in //bars: alternating toe tap on 6" step x 10reps, step up x 10reps, travel up/across/ down curb x 4 trials. Pt practiced ambulation over obstacles (pool noodle, bolster, Airex pad) 4 x 8ft. Pt practiced ambulation in //bars with this CARROT HARVESTER tapping lower legs with pool noodle to simulate poodle at home. Pt back to recliner with call light and all needs met. Assessment Current Status: Good Progress Pt requires effort and min A to stand from standard chair, requires A to don pants. Good performance with dynamic balance challenges. Pt gait improved by increased stride and increased speed by the end of treatment. PT Retirement Goals [place] Man Goals PT [place] Man Goals Time Frame: Mar 13, 2020 Roll Left & Right (QC): 6 Sit to Lying (QC): 6 Lying-Sitting on Side/Bed(QC): 6 Sit to Stand (QC): 6 Chair/Obr-xu-Qtutw Xfer(QC): 6 Toilet Transfer (QC): 6 Car Transfer (QC): 6 Does the Patient Walk: Yes Walk 10 feet (QC): 5 Walk 50ft with 2 Turns (QC): 5 Walk 150 ft (QC): 5 Walking 10ft on Uneven Surface: 5 1 Step (curb) (QC): 5 4 Steps (QC): 5 12 Steps (QC): 9 Picking up an Object (QC): 5 Does the Pt use WC or Scooter?: No Wheel 50 feet with 2 turns (QC: 9 Wheel 150 feet: 9 PT Plan Treatment/Plan Treatment Plan: Continue Plan of Care Treatment Plan: Bed Mobility, Concurrent Therapy, Education, Functional Activity Brandon, Functional Strength, Group Therapy, Gait, Safety, Therapeutic Exercise, Transfers Treatment Duration: Mar 13, 2020 Frequency: At least 5 of 7 days/Wk (IRF) Estimated Hrs Per Day: 1.5 hours per day Patient and/or Family Agrees t: Yes Time/GCodes Time In: 1025 Time Out: 1125 Total Billed Treatment Time: 60 Total Billed Treatment 1, Gait 45', Ther ex 15' SRINIVAS BAGLEY CPTDara Feb 20, 2020 13:07
--- NOTE | 2020-02-20 13:16 | Speech Therapy Daily Note ---
Speech Daily Progress Note Subjective Date Seen by Provider: Feb 20, 2020 Time Seen by Provider: 00:30 Patient was resting in his bed when I entered his room this am. He alerted and participated in therapy. Objective Patient completed a series of safety awareness scenario questions with pictures presented with 85% given min to mod verbal and/or visual cues. Assessment Assessment Current Status: Good Progress Treatment Plan Continue Plan of Care Speech Short Term Goals Short Term Goals Short Term Goals 1) Patient will complete memory tasks related to his daily needs at 80% or greater given minimal cues. 2) Patient will complete problem solving tasks related to his daily needs at 80% or greater given minimal cues. 3) Patient will complete safety awareness tasks related to his daily needs at 80% or greater given minimal cues. Speech Shelter Goals Shelter Goals Patient will improve cognitive-communication abilities so that he may complete daily tasks with minimal assist. Speech-Plan Patient/Family Goals Patient/Family Goals: Patient plans on returning home with hired staff and family support for his daily needs. Treatment Plan Speech Therapy Treatment Plan: Continue Plan of Care Treatment Duration: Feb 27, 2020 Frequency: 4 times per week (Pateint will receive skilled ST 4-5x per week) Estimated Hrs Per Day: .5 hour per day Rehab Potential: Fair Barriers to Learning: Patient's age, medical status Pt/Family Agrees to Plan: Yes Safety Risks/Education Teaching Recipient: Patient Teaching Methods: Demonstration, Discussion Response to Teaching: Verbalize Understanding, Return Demonstration Education Topics Provided: Continued safety in his room as well as upon his return home. Continued safety with oral intake. Time Speech Therapy Time In: 08:30 Speech Therapy Time Out: 09:00 Total Billed Time: 30 Billed Treatment Time 1, ANNE-MARIE, PHILIP Mason Feb 20, 2020 13:16
--- NOTE | 2020-02-20 14:04 | NUR ---
"RD ASSESSMENT PMHx: Parkinson's disease; CA(skin); s/p shoulder replacement PT INTERACTION: Pt was awake and pleasant during nutrition follow-up. Pt states he has been eating poorly since last assessment. Note avg PO intake <25% meals, per chart review. Pt states no issues with nausea, vomiting, constipation, or diarrhea since last assessment. Note last BM was 02/17, and pt currently on bowel regimen of colace BID; senna BID; and miralax BID, per chart review. Note recent 2# wt loss x1w, per chart review. ABNORMAL NUTRITION-RELATED LAB VALUES LOW: Na 134; Pro 5.4; alb 2.6 HIGH: BUN 23 Est. kcal needs: 1800 kcal | 30 kcal/kg Est. Pro needs: 72 g Pro | 1.2 g Pro/kg PES STATEMENT: Inadequate oral intake (NI-2.1) related to loss of appetite as evidenced by pt interview | avg PO intake <25% meals INTERVENTION: Continue with current diet order of Regular diet. Continue with current supplementation order of Ensure Enlive with meals TID, for increased kcal intake. Provides 350 kcal and 13 g Pro per serving. Will continue to follow and reassess as pt needs, intake, and status change. MONITOR/EVALUATE: PO Intake; Plan of Care; Hydration Status; Weight Status; Lab Values Oscar Verma, MS, RD, LD"
--- NOTE | 2020-02-20 14:24 | NUR ---
CM/SS CONCURRENT DOCUMENTATION and DISCHARGE PLANNING Patient's daughter Myriam Cheatham here and on her return trip home to [place], [place]. She has coordinated in-home caregivers for patient 08/01 for two weeks, then days and at bedtime for 2 more weeks. Primary caregiver will be Hayde, all contacts will go through daughter Myriam. Caregiver education set up for 02/23/20 at 0900, Sunday will be scheduled if therapy team feels it necessary. Reviewed patient physician appointments, he has a followup with [facility] Clarence/Antonia Ross NP February 24 at 1030. Explained to daughter that ARU patients could not leave and return to unit due to Covid19 protocols, she asked that patient be discharged if safe to do so that a.m. Daughter will take patient to his appointment and then on home to [place], [place]. HHC: Resume through [employer] for RN, PT, OT, bath aid. PH: [phone] FX: [phone] DME: Patient has Rollator, will need to know if patient requires a javad walker. DPOA-HC: Obtained copy from Myriam, she is first agent and her daughter (patient's granddaughter) is secondary. Added to unit chart. CONTACTS/ADDITIONAL: Tammi Kim, Granddaughter [address] [place] [address]
--- NOTE | 2020-02-20 14:52 | NUR ---
APPETITE REMAINS VERY POOR. PATIENT'S DAUGHTER IS HERE, REQUESTING MEDICATION TO HELP STIMULATE APPETITE. DR. THOMSON NOTIFIED WITH NEW ORDER REC'D FOR REMERON- 7.5 MG PO HS.
--- NOTE | 2020-02-20 15:01 | Therapy Group Daily Note ---
Therapy Daily Group Note Patient Education Topic Home Safety, Fall Prevention, Energy Cons, Exercises Exercises LE Seated Exercise, UE Exercise Session Ratio (pt:therapist): 3:1 Goal of Session: Home Safety Strategies, UE/LE Strengthing, Safety with Transfers Goal Met for this Session: Yes Pt Benefit of Group: Contributions to Others, F/U Use of Strategies @Home, Increased Functional Safety, Increased Functional Strength, Improved Cognition, Recognition of Peers, Socialization Other/Notes Pt ambulated to OT group with CGA. Group consisted of introductions (name, place living, fall activity), socialization, seated UE/LE exercises, educational topics on exercising throughout the year and hydration. Pt introduced self appropriately and actively listened to peers. Pt contributed to peer conversations appropriately. Demonstrated understanding of educational topics by answering questions while participating in group activity and giving own personal strategies. After session, pt seated in reclining chair with daughter in room with call light/phone in reach. All needs met in room. Start Time: 13:00 Stop Time: 14:20 Total Billed Treatment Time: 80 Total Billed Treatment 1, GRP MYAH SALINAS OTR Feb 20, 2020 15:01
[2020-02-20 16:00] VITALS: BP 118/63
--- NOTE | 2020-02-20 16:13 | NUR ---
PER NURSE AT [facility] ([facility])- LEAVE RIGHT ARM DRESSING IN PLACE UNTIL F/U APPOINTMENT. F/U WITH PARKER CRUZ) ON 02/25/20 AT 10:30... ARRIVE BY 10:15.
[2020-02-20] MEDS: TAMSULOSIN 0.4 MG (FLOMAX) CAP PO SCH (17:01)
[2020-02-20] MEDS: TOLTERODINE LA 4 MG (DETROL) CAP PO SCH (20:00)
[2020-02-20] MEDS: ENOXAPARIN 40 MG/0.4 ML (LOVENOX) SYR SC SCH (20:00)
[2020-02-20] MEDS: MIRTAZAPINE 15 MG (REMERON) TAB PO SCH (20:00)
[2020-02-20] MEDS: MELATONIN 3 MG TABLET PO PRN (20:01)
[2020-02-20] MEDS: CATHETER FLUSH 10 ML SYR IV SCH (20:01)
[2020-02-21 05:16] VITALS: BP 127/63
[2020-02-21] MEDS: CATHETER FLUSH 10 ML SYR IV SCH ×3 (05:58→20:25)
[2020-02-21] MEDS: ASCORBIC ACID (VIT C) 500 MG TABLET PO SCH (05:58)
[2020-02-21] MEDS: LORATADINE (CLARITIN) 10 MG TAB PO SCH (08:36)
[2020-02-21] MEDS: ASPIRIN E.C. 81 MG (ECOTRIN) TAB PO SCH (08:36)
[2020-02-21] MEDS: SENNA W/DOCUSATE (SENOKOT S) TABLET PO SCH ×2 (08:36→20:24)
[2020-02-21] MEDS: MELOXICAM 7.5 MG (MOBIC) TABLET PO SCH (08:36)
[2020-02-21] MEDS: DOCUSATE SODIUM 100 MG (COLACE) CAP PO SCH ×2 (08:36→20:24)
[2020-02-21] MEDS: IRON SUCROSE 200 MG/10 ML (VENOFER) VIAL IV SCH (08:37)
[2020-02-21] MEDS: polyethylene glycoL POWDER 17 GM (MIRALAX) PACK PO SCH ×2 (08:38→20:25)
--- NOTE | 2020-02-21 09:00 | NUR ---
DENIES PAIN. STATES "READY TO GO HOME". CONTINUES TO EAT VERY POOR.
--- NOTE | 2020-02-21 11:33 | Physical Therapy Daily Note ---
PT Daily Note-Current Subjective Pt agreeable to ambulation in [facility]. Pt states several times, "Wait a minute. I just have to catch my breath." Pt denies pain. Mental Status Patient Orientation: Person, Place, Situation Transfers SCALE: Activities may be completed with or without assistive devices. 6-Azmmaagnfw-xhwnyat completes the activity by him/herself with no assistance from a helper. 5-Set-up or Clean-up Assistance-helper sets up or cleans up; patient completes activity. [place] assists only prior to or following the activity. 4-Supervision or Touching Assistance-helper provides verbal cues and/or touching/steadying and/or contact guard assistance as patient completes activity. Assistance may be provided throughout the activity or intermittently. 3-Partial/Moderate Assistance-helper does LESS THAN HALF the effort. [place] lifts, holds or supports trunk or limbs, but provides less than half the effort. 2-Substantial/Maximal Assistance-helper does MORE THAN HALF the effort. [place] lifts or holds trunk or limbs and provides more than half the effort. 6-Lgeartnng-uxllvk does ALL the effort. Patient does none of the effort to complete the activity. Or, the assistance of 2 or more helpers is required for the patient to complete the activity. If activity was not attempted, code reason: 7-Patient Refused. 9-Not Applicable-not attempted and the patient did not perform the activity before the current illness, exacerbation or injury. 10-Not Attempted due to Environmental Limitations-(lack of equipment, weather restraints, etc.). 88-Not Attempted due to Medical Conditions or Safety Concerns. Weight Bearing Full Weight Bearing Full Weight Bearing Treatments Pt seen for gait and endurance training in [facility]. 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 Pt required rest breaks between due to fatigue and SOB. Pt back to bed per request. Assessment Current Status: Good Progress Pt required min A for sit to stand transfers. Pt mod (I) with bed mobility. Pt SOB with exertion, fatigued easily. Pt resting with call light and all needs met post therapy. PT Skilled Nursing Goals Pets Salesperson Goals PT Pets Salesperson Goals Time Frame: Mar 13, 2020 Roll Left & Right (QC): 6 Sit to Lying (QC): 6 Lying-Sitting on Side/Bed(QC): 6 Sit to Stand (QC): 6 Chair/Fzv-wq-Mguxs Xfer(QC): 6 Toilet Transfer (QC): 6 Car Transfer (QC): 6 Does the Patient Walk: Yes Walk 10 feet (QC): 5 Walk 50ft with 2 Turns (QC): 5 Walk 150 ft (QC): 5 Walking 10ft on Uneven Surface: 5 1 Step (curb) (QC): 5 4 Steps (QC): 5 12 Steps (QC): 9 Picking up an Object (QC): 5 Does the Pt use WC or Scooter?: No Wheel 50 feet with 2 turns (QC: 9 Wheel 150 feet: 9 PT Plan Treatment/Plan Treatment Plan: Continue Plan of Care Treatment Plan: Bed Mobility, Concurrent Therapy, Education, Functional Activity [place], Functional Strength, Group Therapy, Gait, Safety, Therapeutic Exercise, Transfers Treatment Duration: Mar 13, 2020 Frequency: At least 5 of 7 days/Wk (IRF) Estimated Hrs Per Day: 1.5 hours per day Patient and/or Family Agrees t: Yes Time/GCodes Time In: 940 Time Out: 1000 Total Billed Treatment Time: 20 Total Billed Treatment 1, ther ex gait 20min SRINIVAS BAGLEY CPTDara Feb 21, 2020 11:33
--- NOTE | 2020-02-21 12:45 | PM&R Progress Note ---
Subjective HPI/CC On Admission Date Seen by Provider: Feb 21, 2020 Time Seen by Provider: 12:15 Subjective/Events-last exam 02/21/20: Remeron 7.5mg given last night to help sleep and appetite and although he stated he did not sleep everytime nurse checked on his thru night he was snoring Suppository and SSE will be given today if no BM by this afternoon Decreasing pain meds 02/20/20: Patient doing well Eating well Detrol LA started for incontinence BM 02/17 so laxatives maintained 02/19/20: Pt is more alert since discontinuing the pain medication and Xanax Labs are good Requiring a little bit of O2 now but he does have a smoking history Bowels are moving Overall doing pretty good but still very weak 02/18/20: Bowels moved today Restless, so was given Xanax last night but it appears that he might be over- sedated from that Sleeping in quite a bit this morning Denies any pain 02/17/20: Pt having some urinary incontinence Detrol is now at 4mg and maintained on Flomax Appreciate Urology maintenance Had a large BM yesterday Pain is well controlled Overall doing much better 02/16/20: Sodium level 132, I did stop the Clinamix today WBC 3.1 Hgb 8.7 requiring iron infusions Bowels moved three days ago, will monitor that closely 02/15/20: Will stop IVF tomorrow Dysphagia is chronic Checking labs in am Daughter at bedside 02/14/20: Doing better Keeping Clinimix at gentle rate for now IV iron tolerated Hgb 9.1 BP is now better after BP was 80/50 yesterday when he was admitted He has been dehydrated before Will switch normal saline to Clinimix Midline was placed Podiatry will be consulted for toenails Will monitor pt closely Checked meds and labs Reviewed therapy notes 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 with 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 of Systems General: Fatigue, Malaise Gastrointestinal: Constipation Musculoskeletal: arm pain Objective Exam Vital Signs Vital Signs Date Time Temp Pulse Resp B/P (MAP) Pulse Ox O2 Delivery O2 Flow Rate FiO2 02/22/20 05:18 36.6 73 16 100/55 (70) 92 Room Air 02/16/20 15:49 21 Capillary Refill : Less Than 3 SecondsLess Than 3 Seconds General Appearance: No Apparent Distress, WD/WN, Chronically ill, Thin HEENT: PERRL/EOMI, Normal ENT Inspection, Pharynx Normal Neck: Full Range of Motion, Normal Inspection, Non Tender, Supple, Carotid Bruit Respiratory: Chest Non Tender, Lungs Clear, Normal Breath Sounds, No Accessory Muscle Use, No Respiratory Distress Cardiovascular: Regular Rate, Rhythm, No Edema, No Gallop, No JVD, No Murmur, Normal Peripheral Pulses Gastrointestinal: Normal Bowel Sounds, No Organomegaly, No Pulsatile Mass, Non Tender, Soft Back: Normal Inspection, No CVA Tenderness, No Vertebral Tenderness Extremity: Normal Capillary Refill, Normal Inspection, Normal Range of Motion (except right arm in sling), Non Tender, No Calf Tenderness, No Pedal Edema Neurologic/Psychiatric: Alert, Oriented x3, No Motor/Sensory Deficits, surveyor mine II- XII Norm as Tested, Abnormal Gait, Depressed Affect, Disoriented, Motor Weakness (all extremities 4/5) Skin: Normal Color, Warm/Dry Lymphatic: No Adenopathy Results/Procedures Lab Patient resulted labs reviewed. FIM Transfers Therapy Code Descriptions/Definitions Functional [place] Measure: 0=Not Assessed/NA 4=Minimal Assistance 1=Total Assistance 5=Supervision or Setup 2=Maximal Assistance 6=Modified [place] 3=Moderate Assistance 7=Complete IndependenceSCALE: Activities may be completed with or without assistive devices. 0-Uzodxvutwq-ngkzovb completes the activity by him/herself with no assistance from a helper. 5-Set-up or Clean-up Assistance-helper sets up or cleans up; patient completes activity. [place] assists only prior to or following the activity. 4-Supervision or Touching Assistance-helper provides verbal cues and/or touching/steadying and/or contact guard assistance as patient completes activity. Assistance may be provided throughout the activity or intermittently. 3-Partial/Moderate Assistance-helper does LESS THAN HALF the effort. [place] lifts, holds or supports trunk or limbs, but provides less than half the effort. 2-Substantial/Maximal Assistance-helper does MORE THAN HALF the effort. [place] lifts or holds trunk or limbs and provides more than half the effort. 4-Shhkgamlm-uozhnd does ALL the effort. Patient does none of the effort to complete the activity. Or, the assistance of 2 or more helpers is required for the patient to complete the activity. If activity was not attempted, code reason: 7-Patient Refused. 9-Not Applicable-not attempted and the patient did not perform the activity before the current illness, exacerbation or injury. 10-Not Attempted due to Environmental Limitations-(lack of equipment, weather restraints, etc.). 88-Not Attempted due to Medical Conditions or Safety Concerns. Roll Left to Right (QC): 4 Sit to Lying (QC): 3 Sit to Stand (QC): 4 Chair/Jey-xh-Mrxps Xfer(QC): 2 Car Transfer (QC): 88 Gait Training Does the Patient Walk?: Yes Distance: 75', 100', 100' Walk 10 feet (QC): 4 Walk 50 ft with 2 Turns(QC): 4 Walk 150 ft (QC): 4 Walking 10ft/uneven surface-QC: 3 Gait Persons Needed: 1 Gait Assistive Device: Handheld Assist Wheelchair Training Does the Pt Use a Wheelchair?: No Wheel 50 ft with 2 turns (QC): 9 Wheel 150 ft (QC): 9 Stair Training #of Steps: 1 1 Step (curb) (QC): 3 4 Steps (QC): 88 12 Steps (QC): 9 Stairs: Pattern: Step to Balance Picking up an Object (QC): 4 ADL-Treatment Eating (QC): 5 (per clinical judgment, pt will requires s/u at times for feeding managment.) Oral Hygiene (QC): 4 (SBA for brushing and soaking dentures) Shower/Bathe Self (QC): 2 (Max A while in shower due to fatigue) Upper Body Dressing (QC): 3 (Mod A for doffing/donning brace and shirt) Lower Body Dressing (QC): 2 (Max A for doffing/donning brief) On/Off Footwear (QC): 1 (Dependent with doffing/donning slipper socks due to fatigue) Toileting Hygiene (QC): 2 (Max A as therapist provided and emptied urinal. 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 Smoker Hypotension Urinary retention requiring adkins catheter placement Plan: IRF protocol Pain control IVF for hypotension Urology consult for urinary retention 02/13/20: Maintain midline IV Consult podiatry for toe nail care Change IV fluid to Clinimix Evaluate memory test IV iron infusion 02/14/20: IV iron Clinimix Pain control 02/15/20: Check labs in am SW to help at DC with daughter conversation 02/16/20: Continue pain control Sodium level noted at 132 Aggressive bowel regimen due to Parkinson's and constipation 02/17/20: Monitor incontinence Appreciate urology Maintain bowel regimen Continue Detrol and Flomax 02/18/20: Limit Xanax at stereoplotter operator for falls Manage pain 02/19/20: Continue participation Limit pain medication and Xanax Continue bowel regimen 02/20/20: Detrol LA Increase PO diet PT OT 02/21/20: BM regimen to intensify Remeron at night to help sleep and appetite (1) Parkinson disease (2) Aftercare following right shoulder joint replacement surgery (3) Smoker (4) Hypotension ALFREDITO THOMSON DO Feb 21, 2020 12:45
[2020-02-21 17:40] VITALS: BP 111/58
[2020-02-21] MEDS: TAMSULOSIN 0.4 MG (FLOMAX) CAP PO SCH (18:46)
[2020-02-21] MEDS: MELATONIN 3 MG TABLET PO PRN (20:24)
[2020-02-21] MEDS: MIRTAZAPINE 15 MG (REMERON) TAB PO SCH (20:24)
[2020-02-21] MEDS: TOLTERODINE LA 4 MG (DETROL) CAP PO SCH (20:24)
[2020-02-21] MEDS: ENOXAPARIN 40 MG/0.4 ML (LOVENOX) SYR SC SCH (20:25)
[2020-02-22] MEDS: oxyCODONE/APAP 5/325MG (PERCOCET 5) TABLET PO PRN (00:31)
[2020-02-22 05:18] VITALS: BP 100/55
[2020-02-22] MEDS: ASCORBIC ACID (VIT C) 500 MG TABLET PO SCH (06:05)
[2020-02-22] MEDS: CATHETER FLUSH 10 ML SYR IV SCH ×3 (06:05→20:38)
--- NOTE | 2020-02-22 06:35 | PM&R Progress Note ---
Subjective HPI/CC On Admission Date Seen by Provider: Feb 22, 2020 Time Seen by Provider: 12:00 Subjective/Events-last exam 02/22/20: Melatonin helped patient sleep last night Percocet helped back pain Ice cream given Shoulder pain ok 02/21/20: Remeron 7.5mg given last night to help sleep and appetite and although he stated he did not sleep everytime nurse checked on his thru night he was snoring Suppository and SSE will be given today if no BM by this afternoon Decreasing pain meds 02/20/20: Patient doing well Eating well Detrol LA started for incontinence BM 02/17 so laxatives maintained 02/19/20: Pt is more alert since discontinuing the pain medication and Xanax Labs are good Requiring a little bit of O2 now but he does have a smoking history Bowels are moving Overall doing pretty good but still very weak 02/18/20: Bowels moved today Restless, so was given Xanax last night but it appears that he might be over- sedated from that Sleeping in quite a bit this morning Denies any pain 02/17/20: Pt having some urinary incontinence Detrol is now at 4mg and maintained on Flomax Appreciate Urology maintenance Had a large BM yesterday Pain is well controlled Overall doing much better 02/16/20: Sodium level 132, I did stop the Clinamix today WBC 3.1 Hgb 8.7 requiring iron infusions Bowels moved three days ago, will monitor that closely 02/15/20: Will stop IVF tomorrow Dysphagia is chronic Checking labs in am Daughter at bedside 02/14/20: Doing better Keeping Clinimix at gentle rate for now IV iron tolerated Hgb 9.1 BP is now better after BP was 80/50 yesterday when he was admitted He has been dehydrated before Will switch normal saline to Clinimix Midline was placed Podiatry will be consulted for toenails Will monitor pt closely Checked meds and labs Reviewed therapy notes 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 with 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 of Systems General: Fatigue, Malaise Musculoskeletal: arm pain, leg pain Objective Exam Vital Signs Vital Signs Date Time Temp Pulse Resp B/P (MAP) Pulse Ox O2 Delivery O2 Flow Rate FiO2 02/22/20 09:14 Room Air 02/22/20 05:18 36.6 73 16 100/55 (70) 92 02/16/20 15:49 21 Capillary Refill : Less Than 3 SecondsLess Than 3 Seconds General Appearance: No Apparent Distress, WD/WN, Chronically ill, Thin HEENT: PERRL/EOMI, Normal ENT Inspection, Pharynx Normal Neck: Full Range of Motion, Normal Inspection, Non Tender, Supple, Carotid Bruit Respiratory: Chest Non Tender, Lungs Clear, Normal Breath Sounds, No Accessory Muscle Use, No Respiratory Distress Cardiovascular: Regular Rate, Rhythm, No Edema, No Gallop, No JVD, No Murmur, Normal Peripheral Pulses Gastrointestinal: Normal Bowel Sounds, No Organomegaly, No Pulsatile Mass, Non Tender, Soft Back: Normal Inspection, No CVA Tenderness, No Vertebral Tenderness Extremity: Normal Capillary Refill, Normal Inspection, Normal Range of Motion (except right arm in sling), Non Tender, No Calf Tenderness, No Pedal Edema Neurologic/Psychiatric: Alert, Oriented x3, No Motor/Sensory Deficits, adaptive physical educator II- XII Norm as Tested, Abnormal Gait, Depressed Affect, Disoriented, Motor Weakness (all extremities 4/5) Skin: Normal Color, Warm/Dry Lymphatic: No Adenopathy Results/Procedures Lab Patient resulted labs reviewed. FIM Transfers Therapy Code Descriptions/Definitions Functional [place] Measure: 0=Not Assessed/NA 4=Minimal Assistance 1=Total Assistance 5=Supervision or Setup 2=Maximal Assistance 6=Modified [place] 3=Moderate Assistance 7=Complete IndependenceSCALE: Activities may be completed with or without assistive devices. 5-Fcioclqudn-dpnqkly completes the activity by him/herself with no assistance from a helper. 5-Set-up or Clean-up Assistance-helper sets up or cleans up; patient completes activity. [place] assists only prior to or following the activity. 4-Supervision or Touching Assistance-helper provides verbal cues and/or touching /steadying and/or contact guard assistance as patient completes activity. Assistance may be provided throughout the activity or intermittently. 3-Partial/Moderate Assistance-helper does LESS THAN HALF the effort. [place] lifts, holds or supports trunk or limbs, but provides less than half the effort. 2-Substantial/Maximal Assistance-helper does MORE THAN HALF the effort. [place] lifts or holds trunk or limbs and provides more than half the effort. 7-Ueqokpeqt-byoqxd does ALL the effort. Patient does none of the effort to complete the activity. Or, the assistance of 2 or more helpers is required for the patient to complete the activity. If activity was not attempted, code reason: 7-Patient Refused. 9-Not Applicable-not attempted and the patient did not perform the activity before the current illness, exacerbation or injury. 10-Not Attempted due to Environmental Limitations-(lack of equipment, weather restraints, etc.). 88-Not Attempted due to Medical Conditions or Safety Concerns. Roll Left to Right (QC): 4 Sit to Lying (QC): 3 Sit to Stand (QC): 4 Chair/Oez-ve-Myutb Xfer(QC): 2 Car Transfer (QC): 88 Gait Training Does the Patient Walk?: Yes Distance: 75', 100', 100' Walk 10 feet (QC): 4 Walk 50 ft with 2 Turns(QC): 4 Walk 150 ft (QC): 4 Walking 10ft/uneven surface-QC: 3 Gait Persons Needed: 1 Gait Assistive Device: Handheld Assist Wheelchair Training Does the Pt Use a Wheelchair?: No Wheel 50 ft with 2 turns (QC): 9 Wheel 150 ft (QC): 9 Stair Training #of Steps: 1 1 Step (curb) (QC): 3 4 Steps (QC): 88 12 Steps (QC): 9 Stairs: Pattern: Step to Balance Picking up an Object (QC): 4 ADL-Treatment Eating (QC): 5 (per clinical judgment, pt will requires s/u at times for feeding managment.) Oral Hygiene (QC): 4 (SBA for brushing and soaking dentures) Shower/Bathe Self (QC): 2 (Max A while in shower due to fatigue) Upper Body Dressing (QC): 3 (Mod A for doffing/donning brace and shirt) Lower Body Dressing (QC): 2 (Max A for doffing/donning brief) On/Off Footwear (QC): 1 (Dependent with doffing/donning slipper socks due to fatigue) Toileting Hygiene (QC): 2 (Max A as therapist provided and emptied urinal. 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 Smoker Hypotension Urinary retention requiring adkins catheter placement Plan: IRF protocol Pain control IVF for hypotension Urology consult for urinary retention 02/13/20: Maintain midline IV Consult podiatry for toe nail care Change IV fluid to Clinimix Evaluate memory test IV iron infusion 02/14/20: IV iron Clinimix Pain control 02/15/20: Check labs in am SW to help at DC with daughter conversation 02/16/20: Continue pain control Sodium level noted at 132 Aggressive bowel regimen due to Parkinson's and constipation 02/17/20: Monitor incontinence Appreciate urology Maintain bowel regimen Continue Detrol and Flomax 02/18/20: 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
--- NOTE | 2020-02-22 09:00 | NUR ---
COUGHING MORE TODAY. PRODUCTIVE OF WHITE SPUTUM. SOB WITH EXERTION. IS A SMOKER.
[2020-02-22] MEDS: MELOXICAM 7.5 MG (MOBIC) TABLET PO SCH (09:03)
[2020-02-22] MEDS: LORATADINE (CLARITIN) 10 MG TAB PO SCH (09:03)
[2020-02-22] MEDS: DOCUSATE SODIUM 100 MG (COLACE) CAP PO SCH ×2 (09:03→20:35)
[2020-02-22] MEDS: ASPIRIN E.C. 81 MG (ECOTRIN) TAB PO SCH (09:03)
[2020-02-22] MEDS: SENNA W/DOCUSATE (SENOKOT S) TABLET PO SCH ×2 (09:04→20:36)
[2020-02-22] MEDS: polyethylene glycoL POWDER 17 GM (MIRALAX) PACK PO SCH ×2 (09:04→20:36)
[2020-02-22] MEDS: TAMSULOSIN 0.4 MG (FLOMAX) CAP PO SCH (17:57)
[2020-02-22 18:00] VITALS: BP 106/60
[2020-02-22] MEDS: TOLTERODINE LA 4 MG (DETROL) CAP PO SCH (20:37)
[2020-02-22] MEDS: MIRTAZAPINE 15 MG (REMERON) TAB PO SCH (20:37)
[2020-02-22] MEDS: ENOXAPARIN 40 MG/0.4 ML (LOVENOX) SYR SC SCH (20:38)
[2020-02-22] MEDS: MELATONIN 3 MG TABLET PO PRN (20:38)
--- NOTE | 2020-02-23 01:14 | NUR ---
O2 sat on room air 83%. O2 applied at 3l.nc. Sats between 90-92% on 3 lliters. RT notified. Cont to monitor.
[2020-02-23 05:46] VITALS: BP 123/60
[2020-02-23] MEDS: ASCORBIC ACID (VIT C) 500 MG TABLET PO SCH (06:05)
[2020-02-23] MEDS: CATHETER FLUSH 10 ML SYR IV SCH ×3 (06:05→20:21)
--- NOTE | 2020-02-23 06:51 | PM&R Progress Note ---
Subjective HPI/CC On Admission Date Seen by Provider: Feb 23, 2020 Time Seen by Provider: 12:15 Subjective/Events-last exam 02/23/20: Patient having a good day Eating a bit more Labs reviewed No pain 02/22/20: Melatonin helped patient sleep last night Percocet helped back pain Ice cream given Shoulder pain ok 02/21/20: Remeron 7.5mg given last night to help sleep and appetite and although he stated he did not sleep everytime nurse checked on his thru night he was snoring Suppository and SSE will be given today if no BM by this afternoon Decreasing pain meds 02/20/20: Patient doing well Eating well Detrol LA started for incontinence BM 02/17 so laxatives maintained 02/19/20: Pt is more alert since discontinuing the pain medication and Xanax Labs are good Requiring a little bit of O2 now but he does have a smoking history Bowels are moving Overall doing pretty good but still very weak 02/18/20: Bowels moved today Restless, so was given Xanax last night but it appears that he might be over- sedated from that Sleeping in quite a bit this morning Denies any pain 02/17/20: Pt having some urinary incontinence Detrol is now at 4mg and maintained on Flomax Appreciate Urology maintenance Had a large BM yesterday Pain is well controlled Overall doing much better 02/16/20: Sodium level 132, I did stop the Clinamix today WBC 3.1 Hgb 8.7 requiring iron infusions Bowels moved three days ago, will monitor that closely 02/15/20: Will stop IVF tomorrow Dysphagia is chronic Checking labs in am Daughter at bedside 02/14/20: Doing better Keeping Clinimix at gentle rate for now IV iron tolerated Hgb 9.1 BP is now better after BP was 80/50 yesterday when he was admitted He has been dehydrated before Will switch normal saline to Clinimix Midline was placed Podiatry will be consulted for toenails Will monitor pt closely Checked meds and labs Reviewed therapy notes Conferred with marketing programs manager of Systems General: Fatigue, Malaise Neurological: Weakness Objective Exam Vital Signs Vital Signs Date Time Temp Pulse Resp B/P (MAP) Pulse Ox O2 Delivery O2 Flow Rate FiO2 02/23/20 09:03 Room Air 02/23/20 05:46 36.6 78 20 123/60 (81) 91 3.00 Capillary Refill : Less Than 3 SecondsLess Than 3 Seconds General Appearance: No Apparent Distress, WD/WN, Chronically ill, Thin HEENT: PERRL/EOMI, Normal ENT Inspection, Pharynx Normal Neck: Full Range of Motion, Normal Inspection, Non Tender, Supple, Carotid Bruit Respiratory: Chest Non Tender, Lungs Clear, Normal Breath Sounds, No Accessory Muscle Use, No Respiratory Distress Cardiovascular: Regular Rate, Rhythm, No Edema, No Gallop, No JVD, No Murmur, Normal Peripheral Pulses Gastrointestinal: Normal Bowel Sounds, No Organomegaly, No Pulsatile Mass, Non Tender, Soft Back: Normal Inspection, No CVA Tenderness, No Vertebral Tenderness Extremity: Normal Capillary Refill, Normal Inspection, Normal Range of Motion (except right arm in sling), Non Tender, No Calf Tenderness, No Pedal Edema Neurologic/Psychiatric: Alert, Oriented x3, No Motor/Sensory Deficits, biological technical officer II- XII Norm as Tested, Abnormal Gait, Depressed Affect, Disoriented, Motor Weakness (all extremities 4/5) Skin: Normal Color, Warm/Dry Lymphatic: No Adenopathy Results/Procedures Lab Laboratory Tests 02/23/20 08:46 Patient resulted labs reviewed. FIM Transfers Therapy Code Descriptions/Definitions Functional [place] Measure: 0=Not Assessed/NA 4=Minimal Assistance 1=Total Assistance 5=Supervision or Setup 2=Maximal Assistance 6=Modified [place] 3=Moderate Assistance 7=Complete IndependenceSCALE: Activities may be completed with or without assistive devices. 9-Iegxactdyd-gnduoex completes the activity by him/herself with no assistance from a helper. 5-Set-up or Clean-up Assistance-helper sets up or cleans up; patient completes activity. [place] assists only prior to or following the activity. 4-Supervision or Touching Assistance-helper provides verbal cues and/or touching/steadying and/or contact guard assistance as patient completes activity. Assistance may be provided throughout the activity or intermittently. 3-Partial/Moderate Assistance-helper does LESS THAN HALF the effort. [place] lifts, holds or supports trunk or limbs, but provides less than half the effort. 2-Substantial/Maximal Assistance-helper does MORE THAN HALF the effort. [place] lifts or holds trunk or limbs and provides more than half the effort. 8-Lujgbjzks-ksttmd does ALL the effort. Patient does none of the effort to complete the activity. Or, the assistance of 2 or more helpers is required for the patient to complete the activity. If activity was not attempted, code reason: 7-Patient Refused. 9-Not Applicable-not attempted and the patient did not perform the activity before the current illness, exacerbation or injury. 10-Not Attempted due to Environmental Limitations-(lack of equipment, weather restraints, etc.). 88-Not Attempted due to Medical Conditions or Safety Concerns. Roll Left to Right (QC): 4 Sit to Lying (QC): 3 Sit to Stand (QC): 4 Chair/Rxz-fk-Mpjtl Xfer(QC): 2 Car Transfer (QC): 88 Gait Training Does the Patient Walk?: Yes Distance: 75', 100', 100' Walk 10 feet (QC): 4 Walk 50 ft with 2 Turns(QC): 4 Walk 150 ft (QC): 4 Walking 10ft/uneven surface-QC: 3 Gait Persons Needed: 1 Gait Assistive Device: Handheld Assist Wheelchair Training Does the Pt Use a Wheelchair?: No Wheel 50 ft with 2 turns (QC): 9 Wheel 150 ft (QC): 9 Stair Training #of Steps: 1 1 Step (curb) (QC): 3 4 Steps (QC): 88 12 Steps (QC): 9 Stairs: Pattern: Step to Balance Picking up an Object (QC): 4 ADL-Treatment Eating (QC): 5 (per clinical judgment, pt will requires s/u at times for feeding managment.) Oral Hygiene (QC): 4 (SBA for brushing and soaking dentures) Shower/Bathe Self (QC): 2 (Max A while in shower due to fatigue) Upper Body Dressing (QC): 3 (Mod A for doffing/donning brace and shirt) Lower Body Dressing (QC): 2 (Max A for doffing/donning brief) On/Off Footwear (QC): 1 (Dependent with doffing/donning slipper socks due to fatigue) Toileting Hygiene (QC): 2 (Max A as therapist provided and emptied urinal. 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 Smoker Hypotension Urinary retention requiring adkins catheter placement Plan: IRF protocol Pain control IVF for hypotension Urology consult for urinary retention 02/13/20: Maintain midline IV Consult podiatry for toe nail care Change IV fluid to Clinimix Evaluate memory test IV iron infusion 02/14/20: IV iron Clinimix Pain control 02/15/20: Check labs in am SW to help at DC with daughter conversation 02/16/20: Continue pain control Sodium level noted at 132 Aggressive bowel regimen due to Parkinson's and constipation 02/17/20: Monitor incontinence Appreciate urology Maintain bowel regimen Continue Detrol and Flomax 02/18/20: Limit Xanax at media marketing director for falls Manage pain 02/19/20: Continue participation Limit pain medication and Xanax Continue bowel regimen 02/20/20: Detrol LA Increase PO diet PT OT 02/21/20: BM regimen to intensify Remeron at night to help sleep and appetite 02/22/20: Pain control IS Nebs 02/23/20: IRF protocol Increase po diet Fall risk (1) Parkinson disease (2) Aftercare following right shoulder joint replacement surgery (3) Smoker (4) Hypotension ALFREDITO THOMSON DO Feb 23, 2020 06:51
[2020-02-23] MEDS: LORATADINE (CLARITIN) 10 MG TAB PO SCH (08:14)
[2020-02-23] MEDS: IRON SUCROSE 200 MG/10 ML (VENOFER) VIAL IV SCH (08:14)
[2020-02-23] MEDS: DOCUSATE SODIUM 100 MG (COLACE) CAP PO SCH ×2 (08:14→20:14)
[2020-02-23] MEDS: SENNA W/DOCUSATE (SENOKOT S) TABLET PO SCH ×2 (08:14→20:14)
[2020-02-23] MEDS: ASPIRIN E.C. 81 MG (ECOTRIN) TAB PO SCH (08:14)
[2020-02-23] MEDS: MELOXICAM 7.5 MG (MOBIC) TABLET PO SCH (08:14)
[2020-02-23] MEDS: polyethylene glycoL POWDER 17 GM (MIRALAX) PACK PO SCH ×2 (08:21→20:14)
[2020-02-23 09:29] LABS: BASOPHILS % (AUTO) 0 % (0-10); EOSINOPHILS # (AUTO) 0.2 10^3/uL (0.0-0.3); EOSINOPHILS % (AUTO) 4 % (0-10); HEMATOCRIT 31 % (40-54); HEMOGLOBIN 10.3 G/DL (13.3-17.7); LYMPHOCYTES # (AUTO) 0.7 X 10^3 (1.0-4.0); LYMPHOCYTES % (AUTO) 13 % (12-44); MEAN CORPUSCULAR HEMOGLOBIN 25 PG (25-34); MEAN CORPUSCULAR HGB CONC 33 G/DL (32-36); MEAN CORPUSCULAR VOLUME 76 FL (80-99); MEAN PLATELET VOLUME 9.3 FL (7.4-10.4); MONOCYTES # (AUTO) 0.4 X 10^3 (0.0-1.0); MONOCYTES % (AUTO) 7 % (0-12); NEUTROPHILS # (AUTO) 4.3 X 10^3 (1.8-7.8); NEUTROPHILS % (AUTO) 76 % (42-75); PLATELET COUNT 323 10^3/uL (130-400); WHITE BLOOD COUNT 5.7 10^3/uL (4.3-11.0)
[2020-02-23 09:49] LABS: ALANINE AMINOTRANSFERASE 12 U/L (0-55); ALBUMIN 2.7 GM/DL (3.2-4.5); ALKALINE PHOSPHATASE 66 U/L (40-136); BILIRUBIN,TOTAL 0.3 MG/DL (0.1-1.0); BUN/CREATININE RATIO 15; CALCIUM 8.6 MG/DL (8.5-10.1); CARBON DIOXIDE 22 MMOL/L (21-32); CHLORIDE 102 MMOL/L (98-107); CREATININE SERUM 0.84 MG/DL (0.60-1.30); GFR ESTIMATED > 60; GLUCOSE 139 MG/DL (70-105); POTASSIUM 4.3 MMOL/L (3.6-5.0); SODIUM 133 MMOL/L (135-145); TOTAL PROTEIN 6.1 GM/DL (6.4-8.2)
--- NOTE | 2020-02-23 10:47 | Speech Therapy Daily Note ---
Speech Daily Progress Note Subjective Date Seen by Provider: Feb 23, 2020 Time Seen by Provider: 00:30 Patient was alert and talkative today. Objective Patient completed a series of memory questions related to his daily needs and recent events with 80% given minimal cues. Assessment Assessment Current Status: Good Progress Treatment Plan Continue Plan of Care Speech Short Term Goals Short Term Goals Short Term Goals 1) Patient will complete memory tasks related to his daily needs at 80% or greater given minimal cues. 2) Patient will complete problem solving tasks related to his daily needs at 80% or greater given minimal cues. 3) Patient will complete safety awareness tasks related to his daily needs at 80% or greater given minimal cues. Speech Wheel Installer Goals Wheel Installer Goals Patient will improve cognitive-communication abilities so that he may complete daily tasks with minimal assist. Speech-Plan Patient/Family Goals Patient/Family Goals: Patient plans on returnig to his home with hired staff support. Treatment Plan Speech Therapy Treatment Plan: Continue Plan of Care Treatment Duration: Feb 27, 2020 Frequency: 4 times per week (Pateint will receive skilled ST 4-5x per week) Estimated Hrs Per Day: .5 hour per day Rehab Potential: Fair Barriers to Learning: Patient's age, recent medical status Pt/Family Agrees to Plan: Yes Safety Risks/Education Teaching Recipient: Patient Teaching Methods: Demonstration, Discussion Response to Teaching: Verbalize Understanding, Return Demonstration Education Topics Provided: Safety within his room, safety with oral intake Time Speech Therapy Time In: 10:30 Speech Therapy Time Out: 11:00 Total Billed Time: 30 Billed Treatment Time 1 ANNE-MARIE, PHILIP Mason Feb 23, 2020 10:47
--- NOTE | 2020-02-23 10:58 | Occupational Ther Daily Note ---
OT Current Status-Daily Note Subjective No pain reported. Appearance Pt. up in chair. Agrees to work with therapy. Mental Status/Objective Patient Orientation: Person, Place Attachments: Oxygen ADL-Treatment Therapy Code Descriptions/Definitions Functional [place] Measure: 0=Not Assessed/NA 4=Minimal Assistance 1=Total Assistance 5=Supervision or Setup 2=Maximal Assistance 6=Modified [place] 3=Moderate Assistance 7=Complete IndependenceSCALE: Activities may be completed with or without assistive devices. 0-Xeixooouhi-mecznep completes the activity by him/herself with no assistance from a helper. 5-Set-up or Clean-up Assistance-helper sets up or cleans up; patient completes activity. [place] assists only prior to or following the activity. 4-Supervision or Touching Assistance-helper provides verbal cues and/or touching/steadying and/or contact guard assistance as patient completes activity. Assistance may be provided throughout the activity or intermittently. 3-Partial/Moderate Assistance-helper does LESS THAN HALF the effort. [place] lifts, holds or supports trunk or limbs, but provides less than half the effort. 2-Substantial/Maximal Assistance-helper does MORE THAN HALF the effort. [place] lifts or holds trunk or limbs and provides more than half the effort. 7-Mmbddvnky-lcmzfq does ALL the effort. Patient does none of the effort to complete the activity. Or, the assistance of 2 or more helpers is required for the patient to complete the activity. If activity was not attempted, code reason: 7-Patient Refused. 9-Not Applicable-not attempted and the patient did not perform the activity before the current illness, exacerbation or injury. 10-Not Attempted due to Environmental Limitations-(lack of equipment, weather restraints, etc.). 88-Not Attempted due to Medical Conditions or Safety Concerns. Shower/Bathe Self (QC): 2 (Please see note.) Upper Body Dressing (QC): 2 Lower Body Dressing (QC): 2 On/Off Footwear: 1 Other Treatment Pt. seen for co-treatment by OT/PT to work with pt. and caregiver on training for discharge home. Caregiver present and reports that she is very familiar with pt. PT educates pt. and caregiver on proper ambulation techniques, applying gait belt, and transfers. OT educates caregiver on ADL skills. Caregiver assists pt. in shower and does most tasks for him. She is educated that pt. can do some of these things for himself, but she would like to do them today, as he will not be alone for at least the first month at home. Pt. and caregiver are able to complete all tasks, including ambulation safely with eachother, bathing/dressing. Caregiver is also educated on car transfers, and how to assist pt. with arm sling and PROM to tolerance level. Caregiver verbalizes understanding and states that she is comfortable taking pt. home. All needs met. Education OT Patient Education: Correct positioning, Exercise program, Instructions to caregiver, Modified ADL techniques, Progress toward Goal/Update tx plan, Purpose of tx/functional activities, Reviewed precautions, Rehab process, Transfer t [email or web address] Teaching Recipient: Patient, Primary Caregiver Teaching Methods: Demonstration, Discussion Response to Teaching: Verbalize Understanding, Return Demonstration OT Short Term Goals Short Term Goals Time Frame: Feb 20, 2020 Oral hygiene: 6 Toileting hygiene: 5 Shower/bathe self: 3 Upper body dressin Lower body dressin Putting on/taking off footwear: 3 OT Tip Stitcher Goals Longterm Goals Time Frame: Feb 27, 2020 Eating (QC): 6 Oral Hygiene (QC): 6 Toileting Hygiene (QC): 6 Shower/Bathe Self (QC): 6 Upper Body Dressing (QC): 6 Lower Body Dressing (QC): 6 On/Off Footwear (QC): 6 Additional Goals: 1-Demonstrate ADL Tasks, 2-Verbalize Understanding, 3-ImproveStrength/Brandon 1=Demonstrate adherence to instructed precautions during ADL tasks. 2=Patient will verbalize/demonstrate understanding of assistive devices/modifications for ADL. 3=Patient will improve strength/tolerance for activity to enable patient to perform ADL's. OT Education/Plan Problem List/Assessment Assessment: Decreased Activ Tolerance, Decreased UE Strength, Dependent Transfers, Impaired Bed Mobility, Impaired Funct Balance, Impaired I ADL's, Impaired Self-Care Skills, Restricted Funct UE ROM Discharge Recommendations Plan/Recommendations: Continue POC Therapy Discharge Recommendati: 24 Hour Supervision, Scheduled Assistance, Home & Family, Post Acute OT Treatment Plan/Plan of Care Treatment,Training & Education: Yes Patient would benefit from OT for education, treatment and training to promote independence in ADL's, mobility, safety and/or upper extremity function for ADL's. Plan of Care: ADL Retraining, Caregiver Training, Cognitive Retraining, Functional Mobility, Group Exercise/Act as Ind, UE Funct Exercise/Act Treatment Duration: Feb 27, 2020 Frequency: At least 5 of 7 days/Wk (IRF) Estimated Hrs Per Day: 1.5 hours per day Agreement: Yes Rehab Potential: Fair Time/GCodes Start Time: 09:00 Stop Time: 09:50 Total Time Billed (hr/min): 50 Billed Treatment Time 1, ADL x 3 PEPE MARAVILLA OT Feb 23, 2020 10:58
--- NOTE | 2020-02-23 11:47 | Physical Therapy Daily Note ---
PT Daily Note-Current Subjective Pt up in chair w/ caregivers in room, upon arrival. PT agrees to therapy tx. Pain Numeric Pain Scale: 0-No Pain Location: No Pain Reported Mental Status Patient Orientation: Person, Place Attachments: Oxygen Transfers SCALE: Activities may be completed with or without assistive devices. 4-Vmajjgqdsc-xolisnh completes the activity by him/herself with no assistance from a helper. 5-Set-up or Clean-up Assistance-helper sets up or cleans up; patient completes activity. [place] assists only prior to or following the activity. 4-Supervision or Touching Assistance-helper provides verbal cues and/or touching/steadying and/or contact guard assistance as patient completes activity. Assistance may be provided throughout the activity or intermittently. 3-Partial/Moderate Assistance-helper does LESS THAN HALF the effort. [place] lifts, holds or supports trunk or limbs, but provides less than half the effort. 2-Substantial/Maximal Assistance-helper does MORE THAN HALF the effort. [place] lifts or holds trunk or limbs and provides more than half the effort. 8-Uvepbsjcq-bwbzzb does ALL the effort. Patient does none of the effort to complete the activity. Or, the assistance of 2 or more helpers is required for the patient to complete the activity. If activity was not attempted, code reason: 7-Patient Refused. 9-Not Applicable-not attempted and the patient did not perform the activity before the current illness, exacerbation or injury. 10-Not Attempted due to Environmental Limitations-(lack of equipment, weather restraints, etc.). 88-Not Attempted due to Medical Conditions or Safety Concerns. Sit to Stand (QC): 4 Weight Bearing Full Weight Bearing Full Weight Bearing Gait Training Does the Patient Walk?: Yes Distance: 150' x2 Walk 10 feet (QC): 4 Walk 50 ft with 2 Turns(QC): 4 Walk 150 ft (QC): 4 Gait Persons Needed: 1 Gait Assistive Device: None Pt ambulates w/out AD and prefers to hold hand of person when ambulating. Pt holds hand of caregiver during ambulation, for training purposes, w/ PT/OT following. Seated rest break required during ambulation. Treatments Pt. seen for co-treatment by PT/OT to work with pt. and caregiver on training for discharge home. Caregiver present and reports that she is very familiar with pt. PT educates pt. and caregiver on proper ambulation techniques, applying gait belt, and transfers. OT educates caregiver on ADL skills. Caregiver assists pt. in shower and does most tasks for him. She is educated that pt. can do some of these things for himself, but she would like to do them today, as he will not be alone for at least the first month at home. Pt. and caregiver are able to complete all tasks, including ambulation safely with eachother, bathing/dressing. Caregiver is also educated on car transfers, and how to assist pt. with arm sling and PROM to tolerance level. Caregiver fannie ferris understanding and states that she is comfortable taking pt. home. All needs met. Assessment Current Status: Fair Progress Pt needs O2 monitored during activities d/t SOB. PT Retirement Goals Retirement Goals PT Shell Assembler Goals Time Frame: Mar 13, 2020 Roll Left & Right (QC): 6 Sit to Lying (QC): 6 Lying-Sitting on Side/Bed(QC): 6 Sit to Stand (QC): 6 Chair/Ory-kj-Kkyqn Xfer(QC): 6 Toilet Transfer (QC): 6 Car Transfer (QC): 6 Does the Patient Walk: Yes Walk 10 feet (QC): 5 Walk 50ft with 2 Turns (QC): 5 Walk 150 ft (QC): 5 Walking 10ft on Uneven Surface: 5 1 Step (curb) (QC): 5 4 Steps (QC): 5 12 Steps (QC): 9 Picking up an Object (QC): 5 Does the Pt use WC or Scooter?: No Wheel 50 feet with 2 turns (QC: 9 Wheel 150 feet: 9 PT Plan Problem List Problem List: Activity Tolerance, Functional Strength, Safety, Balance, Gait, Transfer Treatment/Plan Treatment Plan: Continue Plan of Care Treatment Plan: Bed Mobility, Concurrent Therapy, Education, Functional Activity [place], Functional Strength, Group Therapy, Gait, Safety, Therapeutic Exercise, Transfers Treatment Duration: Mar 13, 2020 Frequency: At least 5 of 7 days/Wk (IRF) Estimated Hrs Per Day: 1.5 hours per day Patient and/or Family Agrees t: Yes Safety Risks/Education Patient Education: Gait Training, Transfer Techniques, Reviewed Precautions, Correct Positioning, Instructions to Caregiver, Safety Issues Teaching Recipient: Patient, Primary Caregiver Teaching Methods: Demonstration, Discussion Response to Teaching: Verbalize Understanding, Return Demonstration Time/GCodes Time In: 0900 Time Out: 0950 Total Billed Treatment Time: 50 Total Billed Treatment 1, FA x2 (30m), GT x1 (20m) Co-treatment performed with PT. Please see above note for designated roles GLORIA ZIMMER WOOD HEEL FLAP RUBBER Feb 23, 2020 11:47
--- NOTE | 2020-02-23 13:00 | NUR ---
ASSUMED CARE OF PATIENT. REPORT REC'D FROM BHASKAR SALGADO. AGREE WITH AM ASSESSMENT.
--- NOTE | 2020-02-23 14:39 | Therapy Group Daily Note ---
Therapy Daily Group Note Patient Education Topic Home Safety, Fall Prevention, Exercises Exercises LE Seated Exercise, UE Exercise Session Ratio (pt:therapist): 3:1 Goal of Session: Energy Conservation Tech., Home Safety Strategies, UE/LE Strengthing, Other (list) (Identify Fall Prevention Strategies For Home) Identify ways that pt has modified his home in the past and what he is planning to do to prevent falls in his home after discharge. Participate in seated UE and LE exercises to benefit transfers and ADLs. Goal Met for this Session: Yes Pt Benefit of Group: Contributions to Others, F/U Use of Strategies @Home, Socialization Pt was active participant in group and benefitted from hearing from others about fall prevention strategies Start Time: 13:00 Stop Time: 14:00 Total Billed Treatment Time: 60 Total Billed Treatment 1, 60 mins, Group GLORIA ZIMMER SKEIN BLEACHER Feb 23, 2020 14:39
[2020-02-23] MEDS: TAMSULOSIN 0.4 MG (FLOMAX) CAP PO SCH (17:02)
[2020-02-23] MEDS: RT-ALBUTEROL/IPRATROPIUM 3 ML (DUONEB) VIAL INH SCH ×2 (17:09→22:49)
[2020-02-23 18:23] VITALS: BP 118/63
[2020-02-23] MEDS: MELATONIN 3 MG TABLET PO PRN (20:14)
[2020-02-23] MEDS: TOLTERODINE LA 4 MG (DETROL) CAP PO SCH (20:14)
[2020-02-23] MEDS: ENOXAPARIN 40 MG/0.4 ML (LOVENOX) SYR SC SCH (20:14)
[2020-02-23] MEDS: MIRTAZAPINE 15 MG (REMERON) TAB PO SCH (20:14)
[2020-02-24 05:23] VITALS: BP 126/58
[2020-02-24] MEDS: ASCORBIC ACID (VIT C) 500 MG TABLET PO SCH (05:54)
[2020-02-24] MEDS: CATHETER FLUSH 10 ML SYR IV SCH ×3 (05:55→20:07)
[2020-02-24] MEDS: RT-ALBUTEROL/IPRATROPIUM 3 ML (DUONEB) VIAL INH SCH ×2 (08:14→18:51)
[2020-02-24] MEDS: ASPIRIN E.C. 81 MG (ECOTRIN) TAB PO SCH (08:26)
[2020-02-24] MEDS: DOCUSATE SODIUM 100 MG (COLACE) CAP PO SCH ×2 (08:26→20:21)
[2020-02-24] MEDS: LORATADINE (CLARITIN) 10 MG TAB PO SCH (08:26)
[2020-02-24] MEDS: MELOXICAM 7.5 MG (MOBIC) TABLET PO SCH (08:26)
--- NOTE | 2020-02-24 08:28 | PM&R Progress Note ---
Subjective HPI/CC On Admission Date Seen by Provider: Feb 24, 2020 Time Seen by Provider: 09:00 Subjective/Events-last exam 02/24/20: Bowels moved today No issues Receiving oxygen supplementation but lungs remain clear Nebulizer treatments ordered Will consult Dr. Polk, will check chest X-ray, do a home O2 evaluation and see what Dr. Polk says 02/23/20: Patient having a good day Eating a bit more Labs reviewed No pain 02/22/20: Melatonin helped patient sleep last night Percocet helped back pain Ice cream given Shoulder pain ok 02/21/20: Remeron 7.5mg given last night to help sleep and appetite and although he stated he did not sleep everytime nurse checked on his thru night he was snoring Suppository and SSE will be given today if no BM by this afternoon Decreasing pain meds 02/20/20: Patient doing well Eating well Detrol LA started for incontinence BM 02/17 so laxatives maintained 02/19/20: Pt is more alert since discontinuing the pain medication and Xanax Labs are good Requiring a little bit of O2 now but he does have a smoking history Bowels are moving Overall doing pretty good but still very weak 02/18/20: Bowels moved today Restless, so was given Xanax last night but it appears that he might be over- sedated from that Sleeping in quite a bit this morning Denies any pain 02/17/20: Pt having some urinary incontinence Detrol is now at 4mg and maintained on Flomax Appreciate Urology maintenance Had a large BM yesterday Pain is well controlled Overall doing much better 02/16/20: Sodium level 132, I did stop the Clinamix today WBC 3.1 Hgb 8.7 requiring iron infusions Bowels moved three days ago, will monitor that closely 02/15/20: Will stop IVF tomorrow Dysphagia is chronic Checking labs in am Daughter at bedside 02/14/20: Doing better Keeping Clinimix at gentle rate for now IV iron tolerated Hgb 9.1 BP is now better after BP was 80/50 yesterday when he was admitted He has been dehydrated before Will switch normal saline to Clinimix Midline was placed Podiatry will be consulted for toenails Will monitor pt closely Checked meds and labs Reviewed therapy notes Conferred with head teacher of Systems General: Fatigue, Malaise Neurological: Weakness Objective Exam Vital Signs Vital Signs Date Time Temp Pulse Resp B/P (MAP) Pulse Ox O2 Delivery O2 Flow Rate FiO2 02/24/20 18:52 97 Nasal Cannula 4.00 02/24/20 18:30 158/80 (106) 02/24/20 17:46 36.3 82 02/24/20 05:23 20 Capillary Refill : Less Than 3 SecondsLess Than 3 Seconds General Appearance: No Apparent Distress, WD/WN, Chronically ill, Thin HEENT: PERRL/EOMI, Normal ENT Inspection, Pharynx Normal Neck: Full Range of Motion, Normal Inspection, Non Tender, Supple, Carotid Bruit Respiratory: Chest Non Tender, Lungs Clear, Normal Breath Sounds, No Accessory Muscle Use, No Respiratory Distress Cardiovascular: Regular Rate, Rhythm, No Edema, No Gallop, No JVD, No Murmur, Normal Peripheral Pulses Gastrointestinal: Normal Bowel Sounds, No Organomegaly, No Pulsatile Mass, Non Tender, Soft Back: Normal Inspection, No CVA Tenderness, No Vertebral Tenderness Extremity: Normal Capillary Refill, Normal Inspection, Normal Range of Motion (except right arm in sling), Non Tender, No Calf Tenderness, No Pedal Edema Neurologic/Psychiatric: Alert, Oriented x3, No Motor/Sensory Deficits, supervisor pipelines II- XII Norm as Tested, Abnormal Gait, Depressed Affect, Disoriented, Motor Weakness (all extremities 4/5) Skin: Normal Color, Warm/Dry Lymphatic: No Adenopathy Results/Procedures Lab Laboratory Tests 02/24/20 14:58 Patient resulted labs reviewed. FIM Transfers Therapy Code Descriptions/Definitions Functional [place] Measure: 0=Not Assessed/NA 4=Minimal Assistance 1=Total Assistance 5=Supervision or Setup 2=Maximal Assistance 6=Modified [place] 3=Moderate Assistance 7=Complete IndependenceSCALE: Activities may be completed with or without assistive devices. 5-Dwzmqltamm-dpdssza completes the activity by him/herself with no assistance from a helper. 5-Set-up or Clean-up Assistance-helper sets up or cleans up; patient completes activity. [place] assists only prior to or following the activity. 4-Supervision or Touching Assistance-helper provides verbal cues and/or touching/steadying and/or contact guard assistance as patient completes a ctivity. Assistance may be provided throughout the activity or intermittently. 3-Partial/Moderate Assistance-helper does LESS THAN HALF the effort. [place] lifts, holds or supports trunk or limbs, but provides less than half the effort. 2-Substantial/Maximal Assistance-helper does MORE THAN HALF the effort. [place] lifts or holds trunk or limbs and provides more than half the effort. 7-Pingwsxlx-pjtrlq does ALL the effort. Patient does none of the effort to complete the activity. Or, the assistance of 2 or more helpers is required for the patient to complete the activity. If activity was not attempted, code reason: 7-Patient Refused. 9-Not Applicable-not attempted and the patient did not perform the activity before the current illness, exacerbation or injury. 10-Not Attempted due to Environmental Limitations-(lack of equipment, weather restraints, etc.). 88-Not Attempted due to Medical Conditions or Safety Concerns. Roll Left to Right (QC): 4 Sit to Lying (QC): 3 Sit to Stand (QC): 4 Chair/Ydf-sl-Zefuz Xfer(QC): 2 Car Transfer (QC): 88 Gait Training Does the Patient Walk?: Yes Distance: 150' x2 Walk 10 feet (QC): 4 Walk 50 ft with 2 Turns(QC): 4 Walk 150 ft (QC): 4 Walking 10ft/uneven surface-QC: 3 Gait Persons Needed: 1 Gait Assistive Device: None Wheelchair Training Does the Pt Use a Wheelchair?: No Wheel 50 ft with 2 turns (QC): 9 Wheel 150 ft (QC): 9 Stair Training #of Steps: 1 1 Step (curb) (QC): 3 4 Steps (QC): 88 12 Steps (QC): 9 Stairs: Pattern: Step to Balance Picking up an Object (QC): 4 ADL-Treatment Eating (QC): 5 (per clinical judgment, pt will requires s/u at times for feeding managment.) Oral Hygiene (QC): 4 (SBA for brushing and soaking dentures) Shower/Bathe Self (QC): 2 (Please see note.) Upper Body Dressing (QC): 2 Lower Body Dressing (QC): 2 On/Off Footwear (QC): 1 Toileting Hygiene (QC): 2 (Max A as therapist provided and emptied urinal. 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 Smoker Hypotension Urinary retention requiring adkins catheter placement Plan: IRF protocol Pain control IVF for hypotension Urology consult for urinary retention 02/13/20: Maintain midline IV Consult podiatry for toe nail care Change IV fluid to Clinimix Evaluate memory test IV iron infusion 02/14/20: IV iron Clinimix Pain control 02/15/20: Check labs in am SW to help at DC with daughter conversation 02/16/20: Continue pain control Sodium level noted at 132 Aggressive bowel regimen due to Parkinson's and constipation 02/17/20: Monitor incontinence Appreciate urology Maintain bowel regimen Continue Detrol and Flomax 02/18/20: 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 at 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 Manage pain 02/19/20: Continue participation Limit pain medication and Xanax Continue bowel regimen 02/20/20: Detrol LA Increase PO diet PT OT 02/21/20: BM regimen to intensify Remeron at night to help sleep and appetite 02/22/20: Pain control IS Nebs 02/23/20: IRF protocol Increase po diet Fall risk 02/24/20: Discharge is planned for tomorrow Bowels are moving well O2 evaluation Discharge Sunday DR Polk consult appreciated CXR revealed early infiltrate so will initiate empiric treatment (1) Parkinson disease (2) Aftercare following right shoulder joint replacement surgery (3) Smoker (4) Hypotension ALFREDITO THOMSON DO Feb 24, 2020 08:27
--- NOTE | 2020-02-24 09:09 | Physical Therapy Daily Note ---
PT Daily Note-Current Subjective Pt up in chair upon arrival. RN in room giving medication. Pt agrees to PT tx. Pain Numeric Pain Scale: 0-No Pain Location: No Pain Reported Mental Status Patient Orientation: Person, Place, Time, Situation Attachments: Oxygen (2L) Transfers SCALE: Activities may be completed with or without assistive devices. 5-Htuzxqdfgw-mxncziq completes the activity by him/herself with no assistance from a helper. 5-Set-up or Clean-up Assistance-helper sets up or cleans up; patient completes activity. [place] assists only prior to or following the activity. 4-Supervision or Touching Assistance-helper provides verbal cues and/or touching/steadying and/or contact guard assistance as patient completes activity. Assistance may be provided throughout the activity or intermittently. 3-Partial/Moderate Assistance-helper does LESS THAN HALF the effort. [place] lifts, holds or supports trunk or limbs, but provides less than half the effort. 2-Substantial/Maximal Assistance-helper does MORE THAN HALF the effort. [place] lifts or holds trunk or limbs and provides more than half the effort. 4-Hiexgwbnj-gjindg does ALL the effort. Patient does none of the effort to complete the activity. Or, the assistance of 2 or more helpers is required for the patient to complete the activity. If activity was not attempted, code reason: 7-Patient Refused. 9-Not Applicable-not attempted and the patient did not perform the activity before the current illness, exacerbation or injury. 10-Not Attempted due to Environmental Limitations-(lack of equipment, weather restraints, etc.). 88-Not Attempted due to Medical Conditions or Safety Concerns. Roll Left & Right (QC): 5 Sit to Lying (QC): 5 Lying to Sitting/Side of Bed(Q: 5 Sit to Stand (QC): 4 Chair/Hab-cg-Ofnut Xfer(QC): 4 Toilet Transfer (QC): 4 Car Transfer (QC): 4 Pt needs to use bed railing for all bed mobility tasks Weight Bearing Full Weight Bearing Full Weight Bearing Gait Training Does the Patient Walk?: Yes Distance: 200' x2 Walk 10 feet (QC): 4 Walk 50 ft with 2 Turns(QC): 4 Walk 150 ft (QC): 4 Walking 10ft/uneven surface-QC: 4 Gait Persons Needed: 1 Gait Assistive Device: None Pt prefers to hold onto [employer] [facility] [facility] hand during ambulation. Foreign Clerk follows w/ O2. No LOB during ambulation or on uneven surfaces. Wheelchair Training Does the Pt Use a Wheelchair?: No Stair Training Stair Training: Handrails/: 1 handrail #of Steps: 8 1 Step (curb) (QC): 4 4 Steps (QC): 4 Stairs: Pattern: Step to During ascending, pt is more steady and confident. When descending, pt is more fearful and requires more time to complete. Balance Picking up an Object (QC): 4 Treatments Pt d/t DC tomorrow, 02/25/2020. All quality codes tested and charted on. Gait performed w/ Foreign Clerk following w/ O2. More than 8 steps not attempted d/t pt fearful during descending. Per pt, pt has no stairs at home, but was willing to complete stairs w/ [employer] [facility]. Pt in bed w/ call light and bedside table w/in reach and all needs met at end of tx. Assessment Current Status: Good Progress Pt requires 2L O2 at all times. Frequent rest breaks required d/t SOB. Pt motivated to complete all tasks/activities asked of him. Pt states, "I'll run a mile if it gets me out of here!" PT Rn Er Goals Nursing Home Goals PT Rn Er Goals Time Frame: Mar 13, 2020 Roll Left & Right (QC): 6 Sit to Lying (QC): 6 Lying-Sitting on Side/Bed(QC): 6 Sit to Stand (QC): 6 Chair/Yym-mo-Mgucs Xfer(QC): 6 Toilet Transfer (QC): 6 Car Transfer (QC): 6 Does the Patient Walk: Yes Walk 10 feet (QC): 5 Walk 50ft with 2 Turns (QC): 5 Walk 150 ft (QC): 5 Walking 10ft on Uneven Surface: 5 1 Step (curb) (QC): 5 4 Steps (QC): 5 12 Steps (QC): 9 Picking up an Object (QC): 5 Does the Pt use WC or Scooter?: No Wheel 50 feet with 2 turns (QC: 9 Wheel 150 feet: 9 PT Plan Problem List Problem List: Activity Tolerance, Functional Strength, Safety, Balance, Gait, Transfer, Bed Mobility Treatment/Plan Treatment Plan: Continue Plan of Care Treatment Plan: Bed Mobility, Concurrent Therapy, Education, Functional Activity [place], Functional Strength, Group Therapy, Gait, Safety, Therapeutic Exercise, Transfers Treatment Duration: Mar 13, 2020 Frequency: At least 5 of 7 days/Wk (IRF) Estimated Hrs Per Day: 1.5 hours per day Patient and/or Family Agrees t: Yes Safety Risks/Education Patient Education: Gait Training, Steps, Correct Positioning, Safety Issues Teaching Recipient: Patient Teaching Methods: Discussion Response to Teaching: Verbalize Understanding Time/GCodes Time In: 0830 Time Out: 914 Total Billed Treatment Time: 45 Total Billed Treatment 1, GT x1 (15m), FA x2 (30m) GLORIA ZIMMER [facility] Feb 24, 2020 09:09
[2020-02-24] MEDS: SENNA W/DOCUSATE (SENOKOT S) TABLET PO SCH ×2 (09:54→20:21)
[2020-02-24] MEDS: polyethylene glycoL POWDER 17 GM (MIRALAX) PACK PO SCH ×2 (09:54→20:21)
--- NOTE | 2020-02-24 10:04 | Progress Note - Urology ---
Progress Note-Urology Progress Notes/Assess & Plan Progress/Assessment & Plan DOING WELL CALLAWAY. WE WILL SEE PRN Final Diagnosis RETENTION AND INCONTINENCE BMA YOUNGER MD Feb 24, 2020 10:04
--- NOTE | 2020-02-24 12:00 | Occupational Ther Daily Note ---
OT Current Status-Daily Note Subjective Pt asleep in bed when OT entered room. Once awake, no c/o pain and pt agreeable to therapy. QCs collected this date. Mental Status/Objective Patient Orientation: Person, Place Attachments: Central Line ADL-Treatment Therapy Code Descriptions/Definitions Functional [place] Measure: 0=Not Assessed/NA 4=Minimal Assistance 1=Total Assistance 5=Supervision or Setup 2=Maximal Assistance 6=Modified [place] 3=Moderate Assistance 7=Complete IndependenceSCALE: Activities may be completed with or without assistive devices. 7-Dlptjjexjq-fjdlply completes the activity by him/herself with no assistance from a helper. 5-Set-up or Clean-up Assistance-helper sets up or cleans up; patient completes activity. [place] assists only prior to or following the activity. 4-Supervision or Touching Assistance-helper provides verbal cues and/or touching/steadying and/or contact guard assistance as patient completes activity. Assistance may be provided throughout the activity or intermittently. 3-Partial/Moderate Assistance-helper does LESS THAN HALF the effort. [place] lifts, holds or supports trunk or limbs, but provides less than half the effort. 2-Substantial/Maximal Assistance-helper does MORE THAN HALF the effort. [place] lifts or holds trunk or limbs and provides more than half the effort. 6-Hvapmwxgd-nsvtyd does ALL the effort. Patient does none of the effort to complete the activity. Or, the assistance of 2 or more helpers is required for the patient to complete the activity. If activity was not attempted, code reason: 7-Patient Refused. 9-Not Applicable-not attempted and the patient did not perform the activity before the current illness, exacerbation or injury. 10-Not Attempted due to Environmental Limitations-(lack of equipment, weather restraints, etc.). 88-Not Attempted due to Medical Conditions or Safety Concerns. Eating (QC): 6 (Per pt report) Oral Hygiene (QC): 5 (Set up assistance to soak dentures and brush tongue.) Shower/Bathe Self (QC): 4 (CGA) Upper Body Dressing (QC): 3 (Min A to doff/don shirt and brace) Lower Body Dressing (QC): 3 (Min A to place foot into appropriate pant leg and to fasten button) On/Off Footwear: 2 (Min A to doff slipper socks, dependent to don slipper socks) Toileting Hygiene (QC): 3 (Min A to fasten pants ) Toilet Transfer (QC): 4 (CGA) Pt in bed sleeping. Once awake, pt agreeable to therapy. He reported that he is "ready to get out of here" and was very motivated to complete all tasks so that he can return home. Pt able to ambulate to shower with CGA. Once seated on shower chair, pt able to doff slipper socks, pants, brief, shirt and brace independently with extra time.Pt bathed self with SBA and extra time. He was able to don brief and pants with min A to place foot properly and to button pants. Pt donned shirt and brace with min A. He was dependent for donning slipper socks as he was fatigued and placing sock over toes with one hand was frustrating to him due to decreased motor planning. He ambulated back to reclining chair with CGA. Once in chair he completed OH with set up assistance to soak dentures and brush tongue. Pt tolerated approximately 5 minutes PROM of R shoulder into flexion reaching approximately 75 degrees on one attempt. He was able to complete HEP of 3 sets of 10 repetitions bicep curls bilaterally and hand insurance associate strengthening with red therapy sponge. Pt in reclining chair with chair alarm set and call light in lap. All needs met. Education OT Patient Education: Correct positioning, Energy conservation, Instructions don/doff splint/brace, Modified ADL techniques, Progress toward Goal/Update tx plan, Purpose of tx/functional activities, Reviewed precautions, Rehab process, Safety issues, Transfer techniques Teaching Recipient: Patient Teaching Methods: Demonstration, Discussion Response to Teaching: Verbalize Understanding, Return Demonstration OT Short Term Goals Short Term Goals Time Frame: Feb 20, 2020 Oral hygiene: 6 Toileting hygiene: 5 Shower/bathe self: 3 Upper body dressin Lower body dressin Putting on/taking off footwear: 3 OT Custodial Goals Custodial Goals Time Frame: Feb 27, 2020 Eating (QC): 6 (Goal Met) Oral Hygiene (QC): 6 Toileting Hygiene (QC): 6 Shower/Bathe Self (QC): 6 Upper Body Dressing (QC): 6 Lower Body Dressing (QC): 6 On/Off Footwear (QC): 6 Additional Goals: 1-Demonstrate ADL Tasks, 2-Verbalize Understanding, 3- ImproveStrength/Brandon 1=Demonstrate adherence to instructed precautions during ADL tasks. 2=Patient will verbalize/demonstrate understanding of assistive devices/modifications for ADL. 3=Patient will improve strength/tolerance for activity to enable patient to perform ADL's. OT Education/Plan Problem List/Assessment Assessment: Decreased Activ Tolerance, Impaired Funct Balance, Impaired I ADL's, Impaired Self-Care Skills Discharge Recommendations Plan/Recommendations: Continue POC Therapy Discharge Recommendati: 24 Hour Supervision, Home & Family Equpiment Recommendations-D/C: Rails on Tub/Shower Treatment Plan/Plan of Care Treatment,Training & Education: Yes Patient would benefit from OT for education, treatment and training to promote independence in ADL's, mobility, safety and/or upper extremity function for ADL's. Plan of Care: ADL Retraining, Caregiver Training, Cognitive Retraining, Functional Mobility, Group Exercise/Act as Ind, UE Funct Exercise/Act Treatment Duration: Feb 27, 2020 Frequency: At least 5 of 7 days/Wk (IRF) Estimated Hrs Per Day: 1.5 hours per day Agreement: Yes Rehab Potential: Fair Time/GCodes Start Time: 09:15 Stop Time: 10:30 Total Time Billed (hr/min): 75 Billed Treatment Time 1, ADL 4 (60 minutes), EX (15 minutes) PEPE MARAVILLA OT Feb 24, 2020 12:00
--- NOTE | 2020-02-24 12:07 | Physical Therapy Daily Note ---
PT Daily Note-Current Subjective Agreeable to PT. Mental Status Patient Orientation: Person, Place, Time, Situation Transfers SCALE: Activities may be completed with or without assistive devices. 1-Kqfavjolod-lvyhhkg completes the activity by him/herself with no assistance from a helper. 5-Set-up or Clean-up Assistance-helper sets up or cleans up; patient completes activity. [place] assists only prior to or following the activity. 4-Supervision or Touching Assistance-helper provides verbal cues and/or touching/steadying and/or contact guard assistance as patient completes activity. Assistance may be provided throughout the activity or intermittently. 3-Partial/Moderate Assistance-helper does LESS THAN HALF the effort. [place] lifts, holds or supports trunk or limbs, but provides less than half the effort. 2-Substantial/Maximal Assistance-helper does MORE THAN HALF the effort. [place] lifts or holds trunk or limbs and provides more than half the effort. 2-Bkvrlvxgv-wxvjgb does ALL the effort. Patient does none of the effort to complete the activity. Or, the assistance of 2 or more helpers is required for the patient to complete the activity. If activity was not attempted, code reason: 7-Patient Refused. 9-Not Applicable-not attempted and the patient did not perform the activity before the current illness, exacerbation or injury. 10-Not Attempted due to Environmental Limitations-(lack of equipment, weather restraints, etc.). 88-Not Attempted due to Medical Conditions or Safety Concerns. Sit to Stand (QC): 5 Chair/Vvy-io-Vidtg Xfer(QC): 5 Weight Bearing Full Weight Bearing Full Weight Bearing Gait Training Walk 150 ft (QC): 4 150 ft x 3 reps with oxygen in situ throughout Exercises NuStep Minutes: 15 (to increase functional activity tolerance) Treatments Functional gait and strengthening. oxygen on throughout most of treatment. Took it off as he rode the nu step and his sats dropped to 84%; returned to greater than 90% in approx 1 minute. Post treatment, oxygen in situ and chair alarm activated. Caregiver/friend present post treatment session. Assessment Current Status: Good Progress Pt tolerated treatment well. PT Jail Goals [employer] Goals PT [employer] Goals Time Frame: Mar 13, 2020 Roll Left & Right (QC): 6 Sit to Lying (QC): 6 Lying-Sitting on Side/Bed(QC): 6 Sit to Stand (QC): 6 Chair/Gsz-zy-Cztge Xfer(QC): 6 Toilet Transfer (QC): 6 Car Transfer (QC): 6 Does the Patient Walk: Yes Walk 10 feet (QC): 5 Walk 50ft with 2 Turns (QC): 5 Walk 150 ft (QC): 5 Walking 10ft on Uneven Surface: 5 1 Step (curb) (QC): 5 4 Steps (QC): 5 12 Steps (QC): 9 Picking up an Object (QC): 5 Does the Pt use WC or Scooter?: No Wheel 50 feet with 2 turns (QC: 9 Wheel 150 feet: 9 PT Plan Problem List Problem List: Activity Tolerance, Functional Strength, Safety Treatment/Plan Treatment Plan: Continue Plan of Care Treatment Plan: Bed Mobility, Concurrent Therapy, Education, Functional Activity [place], Functional Strength, Group Therapy, Gait, Safety, Therapeutic Exercise, Transfers Treatment Duration: Mar 13, 2020 Frequency: At least 5 of 7 days/Wk (IRF) Estimated Hrs Per Day: 1.5 hours per day Patient and/or Family Agrees t: Yes Safety Risks/Education Patient Education: Safety Issues Teaching Recipient: Patient Teaching Methods: Discussion Response to Teaching: Verbalize Understanding Discharge Recommendations Plan Plan to discharge tomorrow. Time/GCodes Time In: 1130 Time Out: 1202 Total Billed Treatment Time: 32 Total Billed Treatment visit EX 15 GT 17 SAMMIE NOLASCO PT Feb 24, 2020 12:07
--- NOTE | 2020-02-24 13:11 | Speech Therapy Daily Note ---
Speech Daily Progress Note Subjective Date Seen by Provider: Feb 24, 2020 Time Seen by Provider: 12:30 Patient was finishing up lunch when I entered his room. Patienr was pleasant and agreed to ST. Objective Patient demonstrated utilization of compensatory strategies as trained including smaller bite/sip size and alternating food/drink of 2:1 with 90% given minimal cues. Patient demo ability to recall new information at 95% without cues. Assessment Assessment Current Status: Good Progress Treatment Plan Continue Plan of Care Speech Short Term Goals Short Term Goals Short Term Goals 1) Patient will complete memory tasks related to his daily needs at 80% or greater given minimal cues. 2) Patient will complete problem solving tasks related to his daily needs at 80% or greater given minimal cues. 3) Patient will complete safety awareness tasks related to his daily needs at 80% or greater given minimal cues. Speech Senior Living Goals Senior Living Goals Patient will improve cognitive-communication abilities so that he may complete daily tasks with minimal assist. Speech-Plan Patient/Family Goals Patient/Family Goals: Patient is scheduled to return to his home tomorrow with family and staff to assist him with daily needs. Treatment Plan Speech Therapy Treatment Plan: Continue Plan of Care Treatment Duration: Feb 27, 2020 Frequency: 4 times per week (Pateint will receive skilled ST 4-5x per week) Estimated Hrs Per Day: .5 hour per day Rehab Potential: Fair Barriers to Learning: Patient's recent medical status and age Pt/Family Agrees to Plan: Yes Safety Risks/Education Teaching Recipient: Patient Teaching Methods: Demonstration, Discussion Response to Teaching: Verbalize Understanding, Return Demonstration Education Topics Provided: Continued safety upon his return home, continued safety of oral intake Time Speech Therapy Time In: 12:30 Speech Therapy Time Out: 13:00 Total Billed Time: 30 Billed Treatment Time 1, SLTS, DYST PHILIP Khan Feb 24, 2020 13:11
--- NOTE | 2020-02-24 14:40 | Pulmonary Consultation ---
History of Present Illness History of Present Illness Date Seen by Provider: Feb 24, 2020 Time Seen by Provider: 14:40 Date of Admission Allergies and Home Medications Allergies Coded Allergies: codeine (Verified Allergy, Unknown, 02/24/20) Home Medications No Active Prescriptions or Reported Meds Past Ddizpqk-Abwdix-Cxmspl Hx Past Med/Social Hx: Reviewed Nursing Past Med/Soc Hx, Reviewed and Corrections made Patient Social History Alcohol Use: Rarely Uses Number of Drinks Today: 0 Alcohol Beverage of Choice: Beer Recreational Drug Use: No Smoking Status: Current Everyday Smoker Type Used: Cigarettes Recent Foreign Travel: No Contact w/Someone Who Travel: No Recent Infectious Disease Expo: No Recent Hopitalizations: Yes (recent shoulder surgery) Immunizations Up To Date PED Vaccines UTD: No Seasonal Allergies Seasonal Allergies: No Past Medical History Orthopedic COPD Currently Using CPAP: No Currently Using BIPAP: No Cardiac: Yes (carotid surgery, and triple bypass) Neurological: Yes Parkinson's Disease Sexually Transmitted Disease: No HIV/AIDS: No Genitourinary: Yes (Current adkins use) 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 oz. kg; 21.51 BMI Method: Exam Exam Vital Signs Date Time Temp Pulse Resp B/P (MAP) Pulse Ox O2 Delivery O2 Flow Rate FiO2 02/24/20 09:31 Nasal Cannula 2.00 02/24/20 08:14 94 Nasal Cannula 2.00 02/24/20 05:23 36.4 83 20 126/58 (80) 92 Nasal Cannula 2.50 02/23/20 22:39 94 Nasal Cannula 2.00 02/23/20 21:00 Nasal Cannula 2.50 02/23/20 18:23 37.1 85 18 118/63 (81) 91 Nasal Cannula 2.50 I & O 02/24/20 07:00 Intake Total 800 ml Output Total 200 ml Balance 600 ml Height & Weight Height: '" Weight: lbs. oz. kg; 21.51 BMI Method: General Appearance: No Apparent Distress, WD/WN, Chronically ill, Thin HEENT: PERRL/EOMI, Normal ENT Inspection, Pharynx Normal Neck: Full Range of Motion, Normal Inspection, Non Tender, Supple, Carotid Bruit Respiratory: Chest Non Tender, Lungs Clear, Normal Breath Sounds, No Accessory Muscle Use, No Respiratory Distress Cardiovascular: Regular Rate, Rhythm, No Edema, No Gallop, No JVD, No Murmur, Normal Peripheral Pulses Capillary Refill: Less Than 3 Seconds Extremity: Normal Capillary Refill, Normal Inspection, Normal Range of Motion (except right arm in sling), Non Tender, No Calf Tenderness, No Pedal Edema Neurologic/Psychiatric: Alert, Oriented x3, No Motor/Sensory Deficits, sample body builder II- XII Norm as Tested, Abnormal Gait, Depressed Affect, Disoriented, Motor Weakness (all extremities 4/5) Skin: Normal Color, Warm/Dry Lymphatic: No Adenopathy Results Lab Laboratory Tests 02/23/20 08:46 Assessment/Plan Assessment/Plan COPD -Out pt testing -Will have pt f/u in my office in 2-3 wks -Will need home oxygen -Albuterol/ advair -check labs and CXR Hx of tobacco use Parkinson's disease YANIRA LAGUNAS DO Feb 24, 2020 14:40
[2020-02-24 15:05] LABS: BASOPHILS % (AUTO) 0 % (0-10); EOSINOPHILS # (AUTO) 0.1 10^3/uL (0.0-0.3); EOSINOPHILS % (AUTO) 1 % (0-10); HEMATOCRIT 28 % (40-54); HEMOGLOBIN 8.9 G/DL (13.3-17.7); LYMPHOCYTES # (AUTO) 0.7 X 10^3 (1.0-4.0); LYMPHOCYTES % (AUTO) 12 % (12-44); MEAN CORPUSCULAR HEMOGLOBIN 24 PG (25-34); MEAN CORPUSCULAR HGB CONC 31 G/DL (32-36); MEAN CORPUSCULAR VOLUME 76 FL (80-99); MEAN PLATELET VOLUME 8.7 FL (7.4-10.4); MONOCYTES # (AUTO) 0.6 X 10^3 (0.0-1.0); MONOCYTES % (AUTO) 10 % (0-12); NEUTROPHILS # (AUTO) 4.4 X 10^3 (1.8-7.8); NEUTROPHILS % (AUTO) 77 % (42-75); PLATELET COUNT 332 10^3/uL (130-400); WHITE BLOOD COUNT 5.8 10^3/uL (4.3-11.0)
--- NOTE | 2020-02-24 15:29 | D/C HH Face to Face Order ---
D/C Face to Face Orders Reconcile Patient Problems Problems Reviewed?: Yes Instructions for Patient [facility] Home Health Patient Instructions/FollowUp: PCP 1 week Physician to follow Patient: PCP Discharge Diet for Home: No Restrictions Patient Problems: Parkinsons Right shoulder replacement Patient Data-Allergies,Ht & Wt Patient Allergies: Coded Allergies: No Allergy Information Available (Unverified , 02/12/20) Home Health Need/Face to Face Date of Face to Face: Feb 24, 2020 Clinical Findings: Generalized weakness and fatigue, Instability, Muscle weakness, Unsteady gait I have seen Pt [id number]: Yes Discharged To: Home Diagnosis/Conditions: Parkinsons Right shoulder replacement Patient is Homebound due to: CognItive deficits, Elza fall risk due to instabilty, Muscle weakness, Pain w/ambulation, Shortness of breath/distress Homebound Status Due to the above stated illness, injury or surgical procedure (medical condition or diagnosis) and associated clinical findings, the patient is homebound because of his/her inability to leave home except with aid of a supportive device and/or person AND leaving the home requires a considerable and taxing effort or is medically contraindicated. Pt req the following assistanc: Walker Home Health Nursing Orders Home Health Services Order: Nursing Services, Fondant Puff Maker-Evaluate & Treat, Physical Therapy-Evaluate & Treat, Other (bath aide) Home Health Infusion Therapy Line Start Date: Feb 13, 2020 Certify Stmt I certify that this patient is under my care and that I, a nurse practitioner or a physician; a ophthalmic surgical assistant working with me, had a face to face encounter that - meets the physician face to face encounter requirements with this patient as dated. ALFREDITO THOMSON DO Feb 24, 2020 15:29
[2020-02-24 15:30] LABS: ALANINE AMINOTRANSFERASE 13 U/L (0-55); ALBUMIN 2.6 GM/DL (3.2-4.5); ALKALINE PHOSPHATASE 64 U/L (40-136); BILIRUBIN,TOTAL 0.2 MG/DL (0.1-1.0); BUN/CREATININE RATIO 16; CARBON DIOXIDE 23 MMOL/L (21-32); CHLORIDE 102 MMOL/L (98-107); CREATININE SERUM 0.79 MG/DL (0.60-1.30); GFR ESTIMATED > 60; GLUCOSE 105 MG/DL (70-105); MAGNESIUM 1.7 MG/DL (1.6-2.4); PHOSPHORUS 2.6 MG/DL (2.3-4.7); POTASSIUM 4.2 MMOL/L (3.6-5.0); SODIUM 132 MMOL/L (135-145); TOTAL PROTEIN 5.7 GM/DL (6.4-8.2)
--- NOTE | 2020-02-24 15:35 | Diagnostic Imaging Report ---
INDICATION: Hypoxia. TIME OF EXAM: 02:57 p.m. COMPARISON: No prior studies are available for comparison. FINDINGS: Changes of median sternotomy and CABG are noted. There is a patchy airspace infiltrate in the left base suggestive of pneumonia. There is a small left effusion. Upper lung landon are clear. No pneumothorax is seen. Postop changes of reverse shoulder arthroplasty on the right are noted. IMPRESSION: Left basilar infiltrate and small left effusion. Dictated by: Dictated on workstation # [id number]
--- NOTE | 2020-02-24 15:53 | NUR ---
CM/SS DISCHARGE PLANNING Patient will discharge tomorrow prior to his surgical followup at [facility]. DME: New continuous home O2 coordinated with [facility] in [place]. Through an arrangement with his daughter/DPSTEPHEN, she is having Hayde burr picker the portable tonight before agency closing so that they will have it in a.m. to bring for patient appointment travels. Agency and family understands to partner about getting the home O2 set up later the same day. [facility]: Notified [facility] that patient will discharge tomorrow, they have added him to their schedule for tomorrow afternoon. Will provide final orders and instructions once discharge is complete. IMM2 presented, discussed, signed, charted. Patient is ready to return to his home. Patient's daughter confirms the plan remains in place for her to accompany him to his surgeon followup tomorrow. Once she returns to her own home there is a team of private pay caregivers scheduled to monitor/assist patient as needed.
--- NOTE | 2020-02-24 16:22 | NUR ---
PATIENT REQUIRES 2L OF OXYGEN CONTINUOUS. ON ROOM AIR SAT WAS 86% WHEN 2L ADDED SAT WAS 96% Addendum: 02/24/20 at 1622 by GUTIERREZ VARGAS RT Amended: Links added.
[2020-02-24 17:46] VITALS: BP 168/86
[2020-02-24] MEDS: TAMSULOSIN 0.4 MG (FLOMAX) CAP PO SCH (17:51)
[2020-02-24 18:30] VITALS: BP 158/80
[2020-02-24] MEDS: ENOXAPARIN 40 MG/0.4 ML (LOVENOX) SYR SC SCH (20:07)
[2020-02-24] MEDS: TOLTERODINE LA 4 MG (DETROL) CAP PO SCH (20:07)
[2020-02-24] MEDS: MIRTAZAPINE 15 MG (REMERON) TAB PO SCH (20:08)
[2020-02-24] MEDS: MELATONIN 3 MG TABLET PO PRN (20:08)
[2020-02-24] MEDS ORDERED: ADVAIR HFA 115/21 MCG INHALER 8 GM IH SCH (21:00)
[2020-02-24] MEDS ORDERED: CEFDINIR 300 MG (OMNICEF) CAP PO ONE (21:10)
[2020-02-24] MEDS: CEFDINIR 300 MG (OMNICEF) CAP PO SCH (21:15)
[2020-02-25] MEDS: ASCORBIC ACID (VIT C) 500 MG TABLET PO SCH (05:38)
[2020-02-25] MEDS: CATHETER FLUSH 10 ML SYR IV SCH (05:43)
[2020-02-25 05:46] LABS: BASOPHILS % (AUTO) 0 % (0-10); EOSINOPHILS # (AUTO) 0.2 10^3/uL (0.0-0.3); EOSINOPHILS % (AUTO) 5 % (0-10); HEMATOCRIT 27 % (40-54); HEMOGLOBIN 8.8 G/DL (13.3-17.7); LYMPHOCYTES # (AUTO) 0.9 X 10^3 (1.0-4.0); LYMPHOCYTES % (AUTO) 23 % (12-44); MEAN CORPUSCULAR HEMOGLOBIN 25 PG (25-34); MEAN CORPUSCULAR HGB CONC 33 G/DL (32-36); MEAN CORPUSCULAR VOLUME 76 FL (80-99); MEAN PLATELET VOLUME 8.6 FL (7.4-10.4); MONOCYTES # (AUTO) 0.5 X 10^3 (0.0-1.0); MONOCYTES % (AUTO) 13 % (0-12); NEUTROPHILS # (AUTO) 2.4 X 10^3 (1.8-7.8); NEUTROPHILS % (AUTO) 60 % (42-75); PLATELET COUNT 351 10^3/uL (130-400)
[2020-02-25 06:06] VITALS: BP 128/66
[2020-02-25 06:13] LABS: ALANINE AMINOTRANSFERASE 11 U/L (0-55); ALBUMIN 2.5 GM/DL (3.2-4.5); ALKALINE PHOSPHATASE 60 U/L (40-136); BILIRUBIN,TOTAL 0.3 MG/DL (0.1-1.0); BUN/CREATININE RATIO 12; CALCIUM 8.1 MG/DL (8.5-10.1); CARBON DIOXIDE 24 MMOL/L (21-32); CHLORIDE 105 MMOL/L (98-107); CREATININE SERUM 0.76 MG/DL (0.60-1.30); GFR ESTIMATED > 60; GLUCOSE 78 MG/DL (70-105); POTASSIUM 4.2 MMOL/L (3.6-5.0); SODIUM 136 MMOL/L (135-145); TOTAL PROTEIN 5.4 GM/DL (6.4-8.2)
[2020-02-25] MEDS: RT-ALBUTEROL/IPRATROPIUM 3 ML (DUONEB) VIAL INH SCH (07:25)
--- NOTE | 2020-02-25 07:27 | Pulmonary Progress Note ---
Subjective Time Seen by a Provider: 07:23 Sepsis Event Evaluation Height, Weight, BMI Height: '" Weight: lbs. oz. kg; 21.51 BMI Method: Exam Exam Vital Signs Date Time Temp Pulse Resp B/P (MAP) Pulse Ox O2 Delivery O2 Flow Rate FiO2 02/25/20 06:06 36.5 70 18 128/66 (86) 94 Nasal Cannula 3.00 02/24/20 20:20 Nasal Cannula 2.00 02/24/20 18:52 97 Nasal Cannula 4.00 02/24/20 18:30 158/80 (106) 02/24/20 17:46 36.3 82 168/86 (113) Nasal Cannula 2.00 02/24/20 15:07 96 02/24/20 09:31 Nasal Cannula 2.00 02/24/20 08:14 94 Nasal Cannula 2.00 I & O 02/25/20 07:00 Intake Total 850 ml Output Total 1175 ml Balance -325 ml Height & Weight Height: '" Weight: lbs. oz. kg; 21.51 BMI Method: General Appearance: No Apparent Distress, WD/WN, Chronically ill, Thin HEENT: PERRL/EOMI, Normal ENT Inspection, Pharynx Normal Neck: Full Range of Motion, Normal Inspection, Non Tender, Supple, Carotid Bruit Respiratory: Chest Non Tender, Lungs Clear, Normal Breath Sounds, No Accessory Muscle Use, No Respiratory Distress Cardiovascular: Regular Rate, Rhythm, No Edema, No Gallop, No JVD, No Murmur, Normal Peripheral Pulses Capillary Refill: Less Than 3 Seconds Extremity: Normal Capillary Refill, Normal Inspection, Normal Range of Motion (except right arm in sling), Non Tender, No Calf Tenderness, No Pedal Edema Neurologic/Psychiatric: Alert, Oriented x3, No Motor/Sensory Deficits, radioactivity technician II-X II Norm as Tested, Abnormal Gait, Depressed Affect, Disoriented, Motor Weakness (all extremities 4/5) Skin: Normal Color, Warm/Dry Lymphatic: No Adenopathy Results Lab Laboratory Tests 02/23/20 08:46 02/24/20 14:58 02/25/20 05:35 Assessment/Plan Assessment/Plan COPD -Out pt testing -Will have pt f/u in my office in 2-3 wks -Will need home oxygen -Albuterol/ advair Hx of tobacco use PNA -Continue Omnicef Parkinson's disease YANIRA LAGUNAS DO Feb 25, 2020 07:27
--- NOTE | 2020-02-25 08:25 | Therapy Team Discharge Summary ---
Therapy Discharge Summary Discharge Recommendations Date of Discharge Occupational Therapy Decreased Activ Tolerance, Impaired Funct Balance, Impaired I ADL's, Impaired Self-Care Skills Speech-Language Pathology Patient was admitted to the ARU s/p fall with fractured shoulder. Patient received skilled ST for mild cognitive deficits as indicated by the SLUMS. Patient was able to meet all ST goals. Patient is discharging to home this date with family and hired staff for his daily needs. PT Ornamental Iron Erector Goals Correction Goals PT Ornamental Iron Erector Goals Time Frame: Mar 13, 2020 Roll Left to Right (QC): 6 Sit to Lying (QC): 6 Lying-Sitting on Side/Bed(QC): 6 Sit to Stand (QC): 6 Chair/Nxh-tz-Gkalx Xfer(QC): 6 Car Transfer (QC): 6 Does the Patient Walk: Yes Walk 10 feet (QC): 5 Walk 10ft-Uneven Surface(QC): 5 Walk 50ft with 2 Turns (QC): 5 Walk 150 ft (QC): 5 Does the Pt use WC or Scooter?: No Wheel 50 feet with 2 turns (QC: 9 1 Step (curb) (QC): 5 4 Steps (QC): 5 12 Steps (QC): 9 Picking up an Object (QC): 5 OT Correction Goals Ornamental Iron Erector Goals Time Frame: Feb 27, 2020 Eating (QC): 6 (Goal Met) Oral Hygiene (QC): 6 Shower/Bathe Self (QC): 6 Upper Body Dressing (QC): 6 Lower Body Dressing (QC): 6 On/Off Footwear (QC): 6 Toileting Hygiene (QC): 6 Toilet/Commode Transfer (QC): 6 Additional Goals: 1-Demonstrate ADL Tasks, 2-Verbalize Understanding, 3- ImproveStrength/Brandon 1=Demonstrate adherence to instructed precautions during ADL tasks. 2=Patient will verbalize/demonstrate understanding of assistive devices/modifications for ADL. 3=Patient will improve strength/tolerance for activity to enable patient to perform ADL's. Speech Correction Goals Correction Goals Patient will improve cognitive-communication abilities so that he may complete daily tasks with minimal assist. PHILIP ARREOLA Feb 25, 2020 08:25
[2020-02-25] MEDS: LORATADINE (CLARITIN) 10 MG TAB PO SCH (08:30)
[2020-02-25] MEDS: SENNA W/DOCUSATE (SENOKOT S) TABLET PO SCH (08:31)
[2020-02-25] MEDS: MELOXICAM 7.5 MG (MOBIC) TABLET PO SCH (08:31)
[2020-02-25] MEDS: DOCUSATE SODIUM 100 MG (COLACE) CAP PO SCH (08:31)
[2020-02-25] MEDS: ASPIRIN E.C. 81 MG (ECOTRIN) TAB PO SCH (08:31)
[2020-02-25] MEDS: CEFDINIR 300 MG (OMNICEF) CAP PO SCH (08:31)
[2020-02-25] MEDS: polyethylene glycoL POWDER 17 GM (MIRALAX) PACK PO SCH (08:31)
[2020-02-25] MEDS ORDERED: FLUT12AE4 IH (08:32)
[2020-02-25] MEDS ORDERED: MELA3TAB39 PO (08:32)
[2020-02-25] MEDS ORDERED: ASPI-1238 PO (08:32)
[2020-02-25] MEDS ORDERED: MIRT-47 PO (08:32)
[2020-02-25] MEDS ORDERED: TOLTA4 PO (08:32)
[2020-02-25] MEDS ORDERED: SENN-20 PO (08:32)
[2020-02-25] MEDS ORDERED: TMSL.4C PO (08:32)
[2020-02-25] MEDS ORDERED: IPRA3AMP31 INH (08:32)
[2020-02-25] MEDS ORDERED: CEFD300C3 PO (08:32)
[2020-02-25] MEDS ORDERED: MELO7.5T46 PO (08:32)
[2020-02-25] MEDS ORDERED: OXYC1TAB87 PO (08:32)
[2020-02-25] MEDS ORDERED: LORA10TA7 PO (08:32)
--- NOTE | 2020-02-25 08:34 | Discharge Summary ---
Diagnosis/Chief Complaint Date of Admission Feb 12, 2020 at 15:00 Date of Discharge Discharge Date: Feb 25, 2020 Discharge Diagnosis Assessment: Parkinson's disease 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 Smoker Hypotension Urinary retention requiring adkins catheter placement PNA right lower lobe early onset Plan: IRF protocol Pain control IVF for hypotension Urology consult for urinary retention 02/13/20: Maintain midline IV Consult podiatry for toe nail care Change IV fluid to Clinimix Evaluate memory test IV iron infusion 02/14/20: IV iron Clinimix Pain control 02/15/20: Check labs in am SW to help at DC with daughter conversation 02/16/20: Continue pain control Sodium level noted at 132 Aggressive bowel regimen due to Parkinson's and constipation 02/17/20: Monitor incontinence Appreciate urology Maintain bowel regimen Continue Detrol and Flomax 02/18/20: Limit Xanax at drafter topographical for falls Manage pain 02/19/20: Continue participation Limit pain medication and Xanax Continue bowel regimen 02/20/20: Detrol LA Increase PO diet PT OT 02/21/20: BM regimen to intensify Remeron at night to help sleep and appetite 02/22/20: Pain control IS Nebs 02/23/20: IRF protocol Increase po diet Fall risk 02/24/20: Discharge is planned for tomorrow Bowels are moving well O2 evaluation Discharge Sunday DR Polk consult appreciated CXR revealed early infiltrate so will initiate empiric treatment (1) Parkinson disease (2) Aftercare following right shoulder joint replacement surgery (3) Smoker (4) Hypotension Discharge Summary Discharge Physical Examination Allergies: Coded Allergies: codeine (Verified Allergy, Unknown, 02/24/20) Vitals & I&Os Vital Signs Date Time Temp Pulse Resp B/P (MAP) Pulse Ox O2 Delivery O2 Flow Rate FiO2 02/25/20 10:54 36.5 70 18 128/66 90 Nasal Cannula 2.00 General Appearance: Alert, Oriented X3, Cooperative Respiratory: Clear to Auscultation Cardiovascular: Regular Rate Psych/Mental Status: Mental Status NL Hospital Course Was the Problem List Reviewed?: Yes Hospital course: Pt had an uneventful two week hospital course after she was admitted for right shoulder replacement with severe Parkinsons complicated recovery. Overall he did very well but a severe smoker so he did require the addition of oxygen, he did have a cough and X-ray revealed an early right lower lobe infiltrate, he was not septic, white count remained normal and overall he was deemed stable for discharge on oxygen of 2L continuous, home with caregivers and he will be m onitored closely along with the addition of nebulizer treatments, Symbicort and antibiotics. Labs (last 24 hrs) Laboratory Tests 02/12/20 20:50: White Blood Count 6.5, Red Blood Count 4.33L, Hemoglobin 10.7L, Hematocrit 33L, Mean Corpuscular Volume 75L, Mean Corpuscular Hemoglobin 25, Mean Corpuscular Hemoglobin Concent 33, Red Cell Distribution Width 15.7H, Platelet Count 232, Mean Platelet Volume 9.1, Neutrophils (%) (Auto) 79H, Lymphocytes (%) (Auto) 12, Monocytes (%) (Auto) 7, Eosinophils (%) (Auto) 2, Basophils (%) (Auto) 0, Neutrophils # (Auto) 5.1, Lymphocytes # (Auto) 0.8L, Monocytes # (Auto) 0.5, Eosinophils # (Auto) 0.1, Basophils # (Auto) 0.0, Sodium Level 133L, Potassium Level 4.6, Chloride Level 104, Carbon Dioxide Level 18L, Anion Gap 11, Blood Urea Nitrogen 16, Creatinine 1.02, Estimat Glomerular Filtration Rate > 60, BUN/Creatinine Ratio 16, Glucose Level 98, Lactic Acid Level 1.43, Calcium Level 8.9, Corrected Calcium 9.9, Total Bilirubin 0.2, Aspartate Amino Transf (AST/SGOT) 12, Alanine Aminotransferase (ALT/SGPT) 6, Alkaline Phosphatase 74, Total Protein 6.2L, Albumin 2.8L, Procalcitonin 0.11H 02/13/20 05:21: White Blood Count 5.1, Red Blood Count 3.69L, Hemoglobin 9.1L, Hematocrit 28L, Mean Corpuscular Volume 76L, Mean Corpuscular Hemoglobin 25, Mean Corpuscular Hemoglobin Concent 32, Red Cell Distribution Width 15.6H, Platelet Count 228, Mean Platelet Volume 8.6, Neutrophils (%) (Auto) 71, Lymphocytes (%) (Auto) 18, Monocytes (%) (Auto) 9, Eosinophils (%) (Auto) 2, Basophils (%) (Auto) 0, Neutro phils # (Auto) 3.6, Lymphocytes # (Auto) 0.9L, Monocytes # (Auto) 0.5, Eosinophils # (Auto) 0.1, Basophils # (Auto) 0.0, Sodium Level 135, Potassium Level 4.3, Chloride Level 105, Carbon Dioxide Level 22, Anion Gap 8, Blood Urea Nitrogen 16, Creatinine 0.89, Estimat Glomerular Filtration Rate > 60, BUN/Creatinine Ratio 18, Glucose Level 79, Calcium Level 8.3L, Corrected Calcium 9.4, Total Bilirubin 0.2, Aspartate Amino Transf (AST/SGOT) 9, Alanine Aminotransferase (ALT/SGPT) < 6, Alkaline Phosphatase 65, Total Protein 5.3L, Albumin 2.6L, Iron Level 14L 02/16/20 05:41: White Blood Count 3.1L, Red Blood Count 3.52L, Hemoglobin 8.7L, Hematocrit 26L, Mean Corpuscular Volume 75L, Mean Corpuscular Hemoglobin 25, Mean Corpuscular Hemoglobin Concent 33, Red Cell Distribution Width 16.4H, Platelet Count 228, Mean Platelet Volume 8.6, Neutrophils (%) (Auto) 57, Lymphocytes (%) (Auto) 27, Monocytes (%) (Auto) 9, Eosinophils (%) (Auto) 7, Basophils (%) (Auto) 0, Neutrophils # (Auto) 1.8, Lymphocytes # (Auto) 0.8L, Monocytes # (Auto) 0.3, Eosinophils # (Auto) 0.2, Basophils # (Auto) 0.0, Sodium Level 132L, Potassium Level 4.7, Chloride Level 101, Carbon Dioxide Level 23, Anion Gap 8, Blood Urea Nitrogen 25H, Creatinine 0.69, Estimat Glomerular Filtration Rate > 60, BUN/Creatinine Ratio 36, Glucose Level 91, Calcium Level 8.3L, Corrected Calcium 9.6, Total Bilirubin 0.2, Aspartate Amino Transf (AST/SGOT) 16, Alanine Aminotransferase (ALT/SGPT) 6, Alkaline Phosphatase 53, Total Protein 5.0L, Albumin 2.4L 02/16/20 18:00: Urine Color YELLOW, Urine Clarity CLEAR, Urine pH 7.0, Urine Specific [place] 1.010L, Urine Protein NEGATIVE, Urine Glucose (UA) NEGATIVE, Urine Ketones NEGATIVE, Urine Nitrite NEGATIVE, Urine Bilirubin NEGATIVE, Urine Urobilinogen 0.2, Urine Leukocyte Esterase NEGATIVE, Urine RBC (Auto) NEGATIVE, Urine RBC NONE, Urine WBC RARE, Urine Renal Epithelial Cells RARE, Urine Crystals NONE, Urine Bacteria NEGATIVE, Urine Casts NONE, Urine Mucus NEGATIVE, Urine Culture Indicated NO 02/19/20 05:45: White Blood Count 3.8L, Red Blood Count 3.66L, Hemoglobin 8.9L, Hematocrit 28L, Mean Corpuscular Volume 75L, Mean Corpuscular Hemoglobin 24L, Mean Corpuscular Hemoglobin Concent 32, Red Cell Distribution Width 16.9H, Platelet Count 226, Mean Platelet Volume 9.2, Neutrophils (%) (Auto) 59, Lymphocytes (%) (Auto) 26, Monocytes (%) (Auto) 8, Eosinophils (%) (Auto) 7, Basophils (%) (Auto) 0, Neutrophils # (Auto) 2.2, Lymphocytes # (Auto) 1.0, Monocytes # (Auto) 0.3, Eosinophils # (Auto) 0.3, Basophils # (Auto) 0.0, Sodium Level 134L, Potassium Level 4.6, Chloride Level 102, Carbon Dioxide Level 22, Anion Gap 10, Blood Urea Nitrogen 23H, Creatinine 0.84, Estimat Glomerular Filtration Rate > 60, BUN/Creatinine Ratio 27, Glucose Level 78, Calcium Level 8.5, Corrected Calcium 9.6, Total Bilirubin 0.2, Aspartate Amino Transf (AST/SGOT) 17, Alanine Aminotransferase (ALT/SGPT) 10, Alkaline Phosphatase 59, Total Protein 5.4L, Albumin 2.6L 02/23/20 08:46: White Blood Count 5.7, Red Blood Count 4.13L, Hemoglobin 10.3L, Hematocrit 31L, Mean Corpuscular Volume 76L, Mean Corpuscular Hemoglobin 25, Mean Corpuscular Hemoglobin Concent 33, Red Cell Distribution Width 17.6H, Platelet Count 323, Mean Platelet Volume 9.3, Neutrophils (%) (Auto) 76H, Lymphocytes (%) (Auto) 13, Monocytes (%) (Auto) 7, Eosinophils (%) (Auto) 4, Basophils (%) (Auto) 0, Neutrophils # (Auto) 4.3, Lymphocytes # (Auto) 0.7L, Monocytes # (Auto) 0.4, Eosinophils # (Auto) 0.2, Basophils # (Auto) 0.0, Sodium Level 133L, Potassium Level 4.3, Chloride Level 102, Carbon Dioxide Level 22, Anion Gap 9, Blood Urea Nitrogen 13, Creatinine 0.84, Estimat Glomerular Filtration Rate > 60, BUN/Creatinine Ratio 15, Glucose Level 139H, Calcium Level 8.6, Corrected Calcium 9.6, Total Bilirubin 0.3, Aspartate Amino Transf (AST/SGOT) 21, Alanine Aminotransferase (ALT/SGPT) 12, Alkaline Phosphatase 66, Total Protein 6.1L, Albumin 2.7L 02/24/20 14:58: White Blood Count 5.8, Red Blood Count 3.72L, Hemoglobin 8.9L, Hematocrit 28L, Mean Corpuscular Volume 76L, Mean Corpuscular Hemoglobin 24L, Mean Corpuscular Hemoglobin Concent 31L, Red Cell Distribution Width 18.2H, Platelet Count 332, Mean Platelet Volume 8.7, Neutrophils (%) (Auto) 77H, Lymphocytes (%) (Auto) 12, Monocytes (%) (Auto) 10, Eosinophils (%) (Auto) 1, Basophils (%) (Auto) 0, Neutrophils # (Auto) 4.4, Lymphocytes # (Auto) 0.7L, Monocytes # (Auto) 0.6, Eosinophils # (Auto) 0.1, Basophils # (Auto) 0.0, Sodium Level 132L, Potassium Level 4.2, Chloride Level 102, Carbon Dioxide Level 23, Anion Gap 7, Blood Urea Nitrogen 13, Creatinine 0.79, Estimat Glomerular Filtration Rate > 60, BUN/Creatinine Ratio 16, Glucose Level 105, Calcium Level 8.0L, Corrected Calcium 9.1, Total Bilirubin 0.2, Aspartate Amino Transf (AST/SGOT) 21, Alanine Aminotransferase (ALT/SGPT) 13, Alkaline Phosphatase 64, Total Protein 5.7L, Albumin 2.6L, Phosphorus Level 2.6, Magnesium Level 1.7, B-Type Natriuretic Peptide 91.9 02/25/20 05:35: White Blood Count 4.0L, Red Blood Count 3.54L, Hemoglobin 8.8L, Hematocrit 27L, Mean Corpuscular Volume 76L, Mean Corpuscular Hemoglobin 25, Mean Corpuscular Hemoglobin Concent 33, Red Cell Distribution Width 17.6H, Platelet Count 351, Mean Platelet Volume 8.6, Neutrophils (%) (Auto) 60, Lymphocytes (%) (Auto) 23, Monocytes (%) (Auto) 13H, Eosinophils (%) (Auto) 5, Basophils (%) (Auto) 0, Neutrophils # (Auto) 2.4, Lymphocytes # (Auto) 0.9L, Monocytes # (Auto) 0.5, Eosinophils # (Auto) 0.2, Basophils # (Auto) 0.0, Sodium Level 136, Potassium Level 4.2, Chloride Level 105, Carbon Dioxide Level 24, Anion Gap 7, Blood Urea Nitrogen 9, Creatinine 0.76, Estimat Glomerular Filtration Rate > 60, BUN/Creatinine Ratio 12, Glucose Level 78, Calcium Level 8.1L, Corrected Calcium 9.3, Total Bilirubin 0.3, Aspartate Amino Transf (AST/SGOT) 18, Alanine Aminotransferase (ALT/SGPT) 11, Alkaline Phosphatase 60, Total Protein 5.4L, Albumin 2.5L Pending Labs Laboratory Tests 02/12/20 20:50: White Blood Count 6.5, Red Blood Count 4.33, Hemoglobin 10.7, Hematocrit 33, Mean Corpuscular Volume 75, Mean Corpuscular Hemoglobin 25, Mean Corpuscular Hemoglobin Concent 33, Red Cell Distribution Width 15.7, Platelet Count 232, Mean Platelet Volume 9.1, Neutrophils (%) (Auto) 79, Lymphocytes (%) (Auto) 12, Monocytes (%) (Auto) 7, Eosinophils (%) (Auto) 2, Basophils (%) (Auto) 0, Neutrophils # (Auto) 5.1, Lymphocytes # (Auto) 0.8, Monocytes # (Auto) 0.5, Eosinophils # (Auto) 0.1, Basophils # (Auto) 0.0, Sodium Level 133, Potassium Level 4.6, Chloride Level 104, Carbon Dioxide Level 18, Anion Gap 11, Blood Urea Nitrogen 16, Creatinine 1.02, Estimat Glomerular Filtration Rate > 60, BUN/Creatinine Ratio 16, Glucose Level 98, Lactic Acid Level 1.43, Calcium Level 8.9, Corrected Calcium 9.9, Total Bilirubin 0.2, Aspartate Amino Transf (AST/SGOT) 12, Alanine Aminotransferase (ALT/SGPT) 6, Alkaline Phosphatase 74, Total Protein 6.2, Albumin 2.8, Procalcitonin 0.11 02/13/20 05:21: White Blood Count 5.1, Red Blood Count 3.69, Hemoglobin 9.1, Hematocrit 28, Mean Corpuscular Volume 76, Mean Corpuscular Hemoglobin 25, Mean Corpuscular Hemoglobin Concent 32, Red Cell Distribution Width 15.6, Platelet Count 228, Mean Platelet Volume 8.6, Neutrophils (%) (Auto) 71, Lymphocytes (%) (Auto) 18, Monocytes (%) (Auto) 9, Eosinophils (%) (Auto) 2, Basophils (%) (Auto) 0, Neutrophils # (Auto) 3.6, Lymphocytes # (Auto) 0.9, Monocytes # (Auto) 0.5, Eosinophils # (Auto) 0.1, Basophils # (Auto) 0.0, Sodium Level 135, Potassium Level 4.3, Chloride Level 105, Carbon Dioxide Level 22, Anion Gap 8, Blood Urea Nitrogen 16, Creatinine 0.89, Estimat Glomerular Filtration Rate > 60, BUN/Creatinine Ratio 18, Glucose Level 79, Calcium Level 8.3, Corrected Calcium 9.4, Total Bilirubin 0.2, Aspartate Amino Transf (AST/SGOT) 9, Alanine Aminotransferase (ALT/SGPT) < 6, Alkaline Phosphatase 65, Total Protein 5.3, Albumin 2.6, Iron Level 14 02/16/20 05:41: White Blood Count 3.1, Red Blood Count 3.52, Hemoglobin 8.7, Hematocrit 26, Mean Corpuscular Volume 75, Mean Corpuscular Hemoglobin 25, Mean Corpuscular He moglobin Concent 33, Red Cell Distribution Width 16.4, Platelet Count 228, Mean Platelet Volume 8.6, Neutrophils (%) (Auto) 57, Lymphocytes (%) (Auto) 27, Monocytes (%) (Auto) 9, Eosinophils (%) (Auto) 7, Basophils (%) (Auto) 0, Neutrophils # (Auto) 1.8, Lymphocytes # (Auto) 0.8, Monocytes # (Auto) 0.3, Eosinophils # (Auto) 0.2, Basophils # (Auto) 0.0, Sodium Level 132, Potassium L evel 4.7, Chloride Level 101, Carbon Dioxide Level 23, Anion Gap 8, Blood Urea Nitrogen 25, Creatinine 0.69, Estimat Glomerular Filtration Rate > 60, BUN/Creatinine Ratio 36, Glucose Level 91, Calcium Level 8.3, Corrected Calcium 9.6, Total Bilirubin 0.2, Aspartate Amino Transf (AST/SGOT) 16, Alanine Aminotransferase (ALT/SGPT) 6, Alkaline Phosphatase 53, Total Protein 5.0, Albumin 2.4 02/16/20 18:00: Urine Color YELLOW, Urine Clarity CLEAR, Urine pH 7.0, Urine Specific [place] 1.010, Urine Protein NEGATIVE, Urine Glucose (UA) NEGATIVE, Urine Ketones NEGATIVE, Urine Nitrite NEGATIVE, Urine Bilirubin NEGATIVE, Urine Urobilinogen 0.2, Urine Leukocyte Esterase NEGATIVE, Urine RBC (Auto) NEGATIVE, Urine RBC NONE, Urine WBC RARE, Urine Renal Epithelial Cells RARE, Urine Crystals NONE, Urine Bacteria NEGATIVE, Urine Casts NONE, Urine Mucus NEGATIVE, Urine Culture Indicated NO 02/19/20 05:45: White Blood Count 3.8, Red Blood Count 3.66, Hemoglobin 8.9, Hematocrit 28, Mean Corpuscular Volume 75, Mean Corpuscular Hemoglobin 24, Mean Corpuscular Hemoglobin Concent 32, Red Cell Distribution Width 16.9, Platelet Count 226, Mean Platelet Volume 9.2, Neutrophils (%) (Auto) 59, Lymphocytes (%) (Auto) 26, Monocytes (%) (Auto) 8, Eosinophils (%) (Auto) 7, Basophils (%) (Auto) 0, Neutrophils # (Auto) 2.2, Lymphocytes # (Auto) 1.0, Monocytes # (Auto) 0.3, Eosinophils # (Auto) 0.3, Basophils # (Auto) 0.0, Sodium Level 134, Potassium Level 4.6, Chloride Level 102, Carbon Dioxide Level 22, Anion Gap 10, Blood Urea Nitrogen 23, Creatinine 0.84, Estimat Glomerular Filtration Rate > 60, BUN/Creatinine Ratio 27, Glucose Level 78, Calcium Level 8.5, Corrected Calcium 9.6, Total Bilirubin 0.2, Aspartate Amino Transf (AST/SGOT) 17, Alanine Aminotransferase (ALT/SGPT) 10, Alkaline Phosphatase 59, Total Protein 5.4, Albumin 2.6 02/23/20 08:46: White Blood Count 5.7, Red Blood Count 4.13, Hemoglobin 10.3, Hematocrit 31, Mean Corpuscular Volume 76, Mean Corpuscular Hemoglobin 25, Mean Corpuscular Hemoglobin Concent 33, Red Cell Distribution Width 17.6, Platelet Count 323, Mean Platelet Volume 9.3, Neutrophils (%) (Auto) 76, Lymphocytes (%) (Auto) 13, Monocytes (%) (Auto) 7, Eosinophils (%) (Auto) 4, Basophils (%) (Auto) 0, Neutrophils # (Auto) 4.3, Lymphocytes # (Auto) 0.7, Monocytes # (Auto) 0.4, Eosinophils # (Auto) 0.2, Basophils # (Auto) 0.0, Sodium Level 133, Potassium Level 4.3, Chloride Level 102, Carbon Dioxide Level 22, Anion Gap 9, Blood Urea Nitrogen 13, Creatinine 0.84, Estimat Glomerular Filtration Rate > 60, BUN/Creatinine Ratio 15, Glucose Level 139, Calcium Level 8.6, Corrected Calcium 9.6, Total Bilirubin 0.3, Aspartate Amino Transf (AST/SGOT) 21, Alanine Aminotransferase (ALT/SGPT) 12, Alkaline Phosphatase 66, Total Protein 6.1, Albumin 2.7 02/24/20 14:58: White Blood Count 5.8, Red Blood Count 3.72, Hemoglobin 8.9, Hematocrit 28, Mean Corpuscular Volume 76, Mean Corpuscular Hemoglobin 24, Mean Corpuscular Hemoglobin Concent 31, Red Cell Distribution Width 18.2, Platelet Count 332, Mean Platelet Volume 8.7, Neutrophils (%) (Auto) 77, Lymphocytes (%) (Auto) 12, Monocytes (%) (Auto) 10, Eosinophils (%) (Auto) 1, Basophils (%) (Auto) 0, Neutrophils # (Auto) 4.4, Lymphocytes # (Auto) 0.7, Monocytes # (Auto) 0.6, Eosinophils # (Auto) 0.1, Basophils # (Auto) 0.0, Sodium Level 132, Potassium Level 4.2, Chloride Level 102, Carbon Dioxide Level 23, Anion Gap 7, Blood Urea Nitrogen 13, Creatinine 0.79, Estimat Glomerular Filtration Rate > 60, BUN/Creatinine Ratio 16, Glucose Level 105, Calcium Level 8.0, Corrected Calcium 9.1, Total Bilirubin 0.2, Aspartate Amino Transf (AST/SGOT) 21, Alanine Aminotransferase (ALT/SGPT) 13, Alkaline Phosphatase 64, Total Protein 5.7, Albumin 2.6, Phosphorus Level 2.6, Magnesium Level 1.7, B-Type Natriuretic Peptide 91.9 02/25/20 05:35: White Blood Count 4.0, Red Blood Count 3.54, Hemoglobin 8.8, Hematocrit 27, Mean Corpuscular Volume 76, Mean Corpuscular Hemoglobin 25, Mean Corpuscular Hemoglobin Concent 33, Red Cell Distribution Width 17.6, Platelet Count 351, Mean Platelet Volume 8.6, Neutrophils (%) (Auto) 60, Lymphocytes (%) (Auto) 23, Monocytes (%) (Auto) 13, Eosinophils (%) (Auto) 5, Basophils (%) (Auto) 0, Neutrophils # (Auto) 2.4, Lymphocytes # (Auto) 0.9, Monocytes # (Auto) 0.5, Eosinophils # (Auto) 0.2, Basophils # (Auto) 0.0, Sodium Level 136, Potassium Level 4.2, Chloride Level 105, Carbon Dioxide Level 24, Anion Gap 7, Blood Urea Nitrogen 9, Creatinine 0.76, Estimat Glomerular Filtration Rate > 60, BUN /Creatinine Ratio 12, Glucose Level 78, Calcium Level 8.1, Corrected Calcium 9.3, Total Bilirubin 0.3, Aspartate Amino Transf (AST/SGOT) 18, Alanine Aminotransferase (ALT/SGPT) 11, Alkaline Phosphatase 60, Total Protein 5.4, Albumin 2.5 Discharge Home Medications: Active Scripts Active Melatonin 3 Mg Tablet 3 Mg PO HS PRN Detrol LA (Tolterodine Tartrate) 4 Mg Cap 4 Mg PO HS Senna-Time S Tablet (Sennosides/Docusate Sodium) 1 Each Tablet 1 Ea PO BID Advair Hfa 115-21 Mcg Inhaler (Fluticasone/Salmeterol) 12 Gm Hfa.aer.ad 2 Puff IH RTBID Mirtazapine 15 Mg Tab.rapdis 7.5 Mg PO HS Percocet 5-325 mg Tablet (Oxycodone HCl/Acetaminophen) 1 Each Tablet 1-2 Tab PO Q6H PRN Meloxicam 7.5 Mg Tablet 7.5 Mg PO DAILY Aspirin EC (Aspirin) 81 Mg Tablet.dr 81 Mg PO DAILY Flomax (Tamsulosin HCl) 0.4 Mg Cap 0.4 Mg PO DAILY@1800 Iprat-Albut 0.5-3(2.5) mg/3 ml (Ipratropium/Albuterol Sulfate) 3 Ml Ampul.neb 3 Ml INH RTBID Cefdinir 300 Mg Capsule 300 Mg PO BID Loratadine 10 Mg Tablet 10 Mg PO DAILY Instructions to patient/family Please see electronic discharge instructions given to patient. Diagnosis/Problems Diagnosis/Problems (1) Parkinson disease (2) Aftercare following right shoulder joint replacement surgery (3) Smoker (4) Hypotension Clinical Quality Measures DVT/VTE Risk/Contraindication: Risk Factor Score Per Nursin RFS Level Per Nursing on Admit: 4+=Very High ALFREDITO THOMSON DO Feb 25, 2020 08:34
--- NOTE | 2020-02-25 09:42 | Therapy Team Discharge Summary ---
Therapy Discharge Summary Discharge Recommendations Date of Discharge 02/25/2020 Therapy D/C Recommendations: Physical Therapy Home Care, Intermittent Supervision Physical Therapy This patient was admitted to ARU with a dx of Parkinson's disease and post reverse Total Shoulder replacement. Prior to admission, he was living alone, driving and was mod indep with mobility. Upon admission to ARU, he was min assist with transfers and bed mobility and able to walk short distances with min assist at a [employer] level. He was and remained NWB right UE throughout the course of his stay here. Treatment has consisted of functional strength training, balance, safety, transfers and gait as well as caregiver training in prep to return home. He has made good progress and plans to return home with the assist of a caregiver. He is generally SBA with all mobility at discharge to include transfers and gait and supervsion with bed mobility. He will return home with assist and recommend [facility] PT to follow as well. DC from ARU at this time. Occupational Therapy Decreased Activ Tolerance, Impaired Funct Balance, Impaired I ADL's, Impaired Self-Care Skills PT Branch Examiner Goals Branch Examiner Goals PT Retirement Goals Time Frame: Mar 13, 2020 Roll Left to Right (QC): 6 Sit to Lying (QC): 6 Lying-Sitting on Side/Bed(QC): 6 Sit to Stand (QC): 6 Chair/Zqv-ot-Ajvej Xfer(QC): 6 Car Transfer (QC): 6 Does the Patient Walk: Yes Walk 10 feet (QC): 5 Walk 10ft-Uneven Surface(QC): 5 Walk 50ft with 2 Turns (QC): 5 Walk 150 ft (QC): 5 Does the Pt use WC or Scooter?: No Wheel 50 feet with 2 turns (QC: 9 1 Step (curb) (QC): 5 4 Steps (QC): 5 12 Steps (QC): 9 Picking up an Object (QC): 5 Goals not fully met, but will have caregiver support at home. Recommend f/u [facility] PT. OT Branch Examiner Goals Retirement Goals Time Frame: Feb 27, 2020 Eating (QC): 6 (Goal Met) Oral Hygiene (QC): 6 Shower/Bathe Self (QC): 6 Upper Body Dressing (QC): 6 Lower Body Dressing (QC): 6 On/Off Footwear (QC): 6 Toileting Hygiene (QC): 6 Toilet/Commode Transfer (QC): 6 Additional Goals: 1-Demonstrate ADL Tasks, 2-Verbalize Understanding, 3- ImproveStrength/Brandon 1=Demonstrate adherence to instructed precautions during ADL tasks. 2=Patient will verbalize/demonstrate understanding of assistive devices/modifications for ADL. 3=Patient will improve strength/tolerance for activity to enable patient to perform ADL's. Speech Branch Examiner Goals Retirement Goals Patient will improve cognitive-communication abilities so that he may complete daily tasks with minimal assist. SAMMIE NOLASCO PT Feb 25, 2020 09:42
[2020-02-25 10:54] VITALS: BP 128/66
--- NOTE | 2020-02-25 11:02 | NUR ---
CM/SS DISCHARGE Patient discharged today as planned. Daughter/POA Myriam Cheatham here to participate in discharge order/instructions and to transport patient to his followup in [place]. HHC: Finalized with [facility] [employer] [facility]. Faxed continuum of care information, discharge orders, instructions. DME: Finalized with [facility] in [place] for home O2 and nebulizer. Will provide the requested Certificates of Medical Necessity as soon as physician signs. Agency will deliver full home O2 setup once patient is at home. [facility] P[facility]: Explored through [facility] system to confirm that patient's PCP is Wayne Cortez, Vannesa Del Real/[employer], Dinesh Castro [facility], [place], [place]. All calls are channeled through one call center at present, telegraphic typewriter operator chief was unable to access the actual clinical office. Call contact center director agreed to have [employer] office staff call daughter to make a followup, either in person or via virtual. They are only seeing patients in person by permission of Team staff. Myriam updated and understanding of this arrangement. Unit RN aware of all arrangements.
--- NOTE | 2020-02-25 11:07 | Therapy Team Discharge Summary ---
Therapy Discharge Summary Discharge Recommendations Date of Discharge 02/25/20 Therapy D/C Recommendations: 24 hr Supervision, Physical Therapy Home Care Occupational Therapy Pt seen by OT to increase UE strength, ROM, and independence with ADL skills. At admission, pt required min assist for lower body dressing, mod A with bathing, max assist for upper body dressing and footwear, and CGA for toilet hygiene. During his time in inpatient rehab, he has improved in most areas, but did not meet all goals. Since admission, he has hired a caregiver reducing the amount of independence needed to safely return home. Pt is discharging home with 24 hour caregiver. He requires set up assistance to complete oral hygiene, min assist for upper and lower body dressing, SBA for showering, and max A for donning/doffing footwear. No further skilled therapy or equipment needs from this facility at this time. Decreased Activ Tolerance, Impaired Funct Balance, Impaired I ADL's, Impaired Self-Care Skills PT [facility] Goals [facility] Goals PT Visiting Nurse Goals Time Frame: Mar 13, 2020 Roll Left to Right (QC): 6 Sit to Lying (QC): 6 Lying-Sitting on Side/Bed(QC): 6 Sit to Stand (QC): 6 Chair/Pxn-gs-Lhvwp Xfer(QC): 6 Car Transfer (QC): 6 Does the Patient Walk: Yes Walk 10 feet (QC): 5 Walk 10ft-Uneven Surface(QC): 5 Walk 50ft with 2 Turns (QC): 5 Walk 150 ft (QC): 5 Does the Pt use WC or Scooter?: No Wheel 50 feet with 2 turns (QC: 9 1 Step (curb) (QC): 5 4 Steps (QC): 5 12 Steps (QC): 9 Picking up an Object (QC): 5 OT [facility] Goals [facility] Goals Time Frame: Feb 27, 2020 Eating (QC): 6 (Goal Met) Oral Hygiene (QC): 6 (not met) Shower/Bathe Self (QC): 6 (not met) Upper Body Dressing (QC): 6 (not met) Lower Body Dressing (QC): 6 (not met) On/Off Footwear (QC): 6 (not met) Toileting Hygiene (QC): 6 (not met) Toilet/Commode Transfer (QC): 6 (not met) Additional Goals: 1-Demonstrate ADL Tasks, 2-Verbalize Understanding, 3-ImproveStrength/Brandon 1=Demonstrate adherence to instructed precautions during ADL tasks. 2=Patient will verbalize/demonstrate understanding of assistive devices/modifications for ADL. 3=Patient will improve strength/tolerance for activity to enable patient to perform ADL's. Speech Visiting Nurse Goals Visiting Nurse Goals Patient will improve cognitive-communication abilities so that he may complete daily tasks with minimal assist. PEPE MARAVILLA OT Feb 25, 2020 11:07
== END 2020-02-25 09:45 | disposition home health service (06) | DRG 56 ==
PROVIDERS: ADMIT Internal Medicine; ATTEND Internal Medicine
DX: G20 Parkinson's disease (principal); J18.9 Pneumonia, unspecified organism; Z47.1 Aftercare following joint replacement surgery; Z96.611 Presence of right artificial shoulder joint; R33.9 Retention of urine, unspecified; R41.89 Other symptoms and signs involving cognitive functions and awareness; I95.9 Hypotension, unspecified; F17.210 Nicotine dependence, cigarettes, uncomplicated; R32 Unspecified urinary incontinence; R13.10 Dysphagia, unspecified; G60.9 Hereditary and idiopathic neuropathy, unspecified; B35.1 Tinea unguium; M20.42 Other hammer toe(s) (acquired), left foot; M20.41 Other hammer toe(s) (acquired), right foot; J44.9 Chronic obstructive pulmonary disease, unspecified
CPT/HCPCS: 36415; 71045; 76937; 80053; 81000; 83540; 83605; 83735; 83880; 84100; 84145; 85025; 94640; 94760; 94761

== ENCOUNTER → 2020-06-15 | Outpatient (CLI) | payer MEDICARE ==
[~2020-06-15] MED LIST: ASCO100024 PO; ASPI-1238 PO; CEFD300C3 PO; CEPH-507 PO; FLUT12AE4 IH; IPRA3AMP31 INH; LORA10TA7 PO; MELA3TAB39 PO; MELO7.5T46 PO; MIRT-47 PO; OXYC1TAB87 PO; PROM25TA14 PO; RT-ALBUTEROL SULF 2.5 MG/3 ML PRE-MIX VIAL INH ONE; SENN-20 PO; TMSL.4C PO; TOLTA4 PO
[2020-06-15 12:03] LABS: BUN/CREATININE RATIO 19; CREATININE SERUM 0.89 MG/DL (0.60-1.30); GFR ESTIMATED > 60
== END ==
LOC: RT 13:00
PROVIDERS: ATTEND Nurse Practitioner Family
DX: J44.9 Chronic obstructive pulmonary disease, unspecified (principal); F17.210 Nicotine dependence, cigarettes, uncomplicated
CPT/HCPCS: 36415; 82565; 84520; 94060; 94726; 94729

== ENCOUNTER → 2020-06-21 | Outpatient (CLI) | payer MEDICARE ==
[~2020-06-21] MED LIST changes: +CATHETER FLUSH 10 ML SYR IV PRN; +HOLD METFORMIN - RECEIVED CONTRAST 20 ML VIAL IV SCH; +IOHEXOL 350 MG/ML 100 ML (OMNIPAQUE 350) VIAL IV ONE; -RT-ALBUTEROL SULF 2.5 MG/3 ML PRE-MIX VIAL INH ONE
--- NOTE | 2020-06-21 13:51 | Diagnostic Imaging Report ---
PROCEDURE: CT chest with contrast only. TECHNIQUE: Multiple contiguous axial images were obtained through the chest after administration of intravenous contrast. Auto Exposure Controls were utilized during the CT exam to meet ALARA standards for radiation dose reduction. INDICATION: COPD and dyspnea. COMPARISON: There are no prior exams for direct comparison. It is correlated with a chest x-ray dated 02/24/2020. FINDINGS: The previous left basilar infiltrate and pleural effusion have resolved. This patient has a tiny subcentimeter right-sided pleural effusion, nonloculated. No thoracic hilar, mediastinal, or axillary lymphadenopathy. Heterogeneous air trapping and features of centrilobular emphysema are present. There is some very mild right greater than left bibasilar dependent atelectasis. Tiny subpleural and interfissural benign nodules are present measuring 4 mm and less. No dominant or suspicious mass. In the right lower lobe, there is some mild septal thickening and vague groundglass opacity which may reflect mild subtle changes of an early pneumonia. No salma lobar consolidation. The aorta is nonaneurysmal. There are coronary atherosclerotic vascular calcifications and a small hiatal hernia. The upper abdomen shows ectasia of the atherosclerotic aorta and left hepatic lobe cysts. IMPRESSION: 1. COPD. An infiltrate developing in the right lower lobe could not be excluded. Minute right pleural effusion. There are a few benign subpleural and interfissural nodules with no suspicious mass or adenopathy. 2. Resolution of the previous left basilar infiltrate and pleural effusion. Dictated by: Dictated on workstation # [id number]
== END ==
LOC: RAD 12:17
PROVIDERS: ATTEND Nurse Practitioner Family
DX: J44.9 Chronic obstructive pulmonary disease, unspecified (principal); R91.8 Other nonspecific abnormal finding of lung field; F17.210 Nicotine dependence, cigarettes, uncomplicated
CPT/HCPCS: 71260

== ENCOUNTER → 2020-08-16 | Outpatient (CLI) | payer MEDICARE ==
[~2020-08-16] MED LIST changes: +NS 100 ML (IVPB) BAG IV ONE
[2020-08-16 11:46] LABS: BUN/CREATININE RATIO 17; GFR ESTIMATED > 60
--- NOTE | 2020-08-16 13:28 | Diagnostic Imaging Report ---
PROCEDURE: CT chest with contrast only. TECHNIQUE: Multiple contiguous axial images were obtained through the chest after administration of intravenous contrast. Auto Exposure Controls were utilized during the CT exam to meet ALARA standards for radiation dose reduction. INDICATION: Pneumonia. COMPARED: 06/21/2020 FINDINGS: The right basilar infiltrate and associated tiny right pleural effusion have resolved in the interim. The lung showed chronic features of COPD but are free of infiltrate and showed no dominant or suspicious mass. Previous sternotomy and right shoulder replacement with no acute chest wall pathology. There is no pneumothorax. 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 IMPRESSION: Resolution of right basilar infiltrate and pleural effusion, no adverse interval development. Dictated by: Dictated on workstation # [id number]
== END ==
LOC: RAD 11:13
PROVIDERS: ATTEND Nurse Practitioner Family
DX: J18.9 Pneumonia, unspecified organism (principal)
CPT/HCPCS: 36415; 71260; 82565; 84520